=== PATIENT | male | born 1965 | race Caucasian/White ===

== ENCOUNTER 2020-06-08 12:28 | Emergency (ER) | payer OTHER, SELFPAY ==
--- NOTE | 2020-06-08 12:42 | XR_ITS ---
EXAMINATION: XR CHEST CLINICAL INFORMATION: Pain COMPARISON: 12/21/2019 TECHNIQUE: Frontal view of the chest was obtained. FINDINGS: The cardiomediastinal silhouette is within normal limits. The lungs are well expanded. There is no focal consolidation, edema, or effusion. No pneumothorax. No acute osseous abnormality. XR/XR chest 1V IMPRESSION: No evidence of acute cardiopulmonary process.
--- NOTE | 2020-06-08 12:42 | ECG_ITS ---
Test Reason : CP Blood Pressure : / mmHG Vent. Rate : 094 BPM Atrial Rate : 094 BPM P-R Int : 160 ms QRS Dur : 086 ms QT Int : 366 ms P-R-T Axes : 065 025 041 degrees QTc Int : 457 ms Normal sinus rhythm Normal ECG When compared with ECG of 21-DEC-2019 11:57, Vent. rate has increased BY 32 BPM Referred By: Mayra Baer Electronically Signed By:Yunier Griggs
--- NOTE | 2020-06-08 12:43 | ED.PSYCH ---
HPI - Psych General Chief Complaint: Psychiatric Symptoms Stated Complaint: Unknown Time Seen by Provider: 06/08/20 12:43 Source: patient and EMS Mode of arrival: EMS Limitations: altered mental status (dementia) History of Present Illness MD complaint: suicidal ideation Onset (ago): unknown Duration: constant History of same: Yes Relieving factors: none Exacerbating factors: none Associated psychiatric symptoms: suicidal ideation (family reports SI) Associated symptoms: other (EMS noted he c/o chest pain after searched by PD - no knife found) Treatments prior to arrival: none Related Data Home Medications Medication Instructions Recorded Confirmed albuterol sulfate 90 mcg/actuation 2 puff INHALATION .4 TIMES A DAY 04/20/20 04/20/20 aerosol inhaler PRN g aripiprazole 5 mg tablet 5 mg PO DAILY 04/20/20 04/20/20 cholecalciferol (vitamin D3) 25 25 mcg PO DAILY 04/20/20 04/20/20 mcg (1,000 unit) capsule cyanocobalamin (vitamin B-12) 1,000 mcg IM Q4W ml 04/20/20 04/20/20 1,000 mcg/mL injection solution donepezil 10 mg tablet 10 mg PO BEDTIME 04/20/20 04/20/20 ibuprofen 600 mg tablet 600 mg PO TID PRN 04/20/20 04/20/20 lisinopril 5 mg tablet 5 mg PO DAILY 04/20/20 04/20/20 pantoprazole 40 mg tablet,delayed 40 mg PO DAILY 04/20/20 04/20/20 release quetiapine 100 mg tablet 200 mg PO BEDTIME tab 04/20/20 04/20/20 sennosides 8.6 mg tablet 8.6 mg PO .2 TABS AT BEDTIME tab 04/20/20 04/20/20 sertraline 50 mg tablet 50 mg PO DAILY 04/20/20 04/20/20 tamsulosin 0.4 mg capsule 0.4 mg PO DAILY 04/20/20 04/20/20 Allergies Allergy/AdvReac Type Severity Reaction Status Date / Time ciprofloxacin [CIPROFLOXACIN] AdvReac Intermediate DIARRHEA Verified 04/20/20 16:07 Review of Systems Review of Systems: ROS unable to be obtained due to dementia PMFSH Past Medical History Attestation statement: The following information was validated with the patient. Medical History Alzheimer disease Alzheimer's dementia Anxiety Asthma Benign essential hypertension Bipolar depression BPH (benign prostatic hyperplasia) GERD (gastroesophageal reflux disease) High cholesterol Insomnia Lumbar degenerative disc disease Neurocognitive disorder Pure hypercholesterolemia Smoker Surgical History History of discectomy History of removal of cyst History of surgery Family History Family History Father Alzheimers disease Chronic mental illness Mother Hypertension Meningitis Sister Heart disease Hypertension Maternal Grandmother Hypertension Diabetes Social History Social History Smoking Status: Current every day smoker Tobacco Type: Cigarette Cigarettes Per Day: 60 Use of substances other than those prescribed or required for medical reasons: No Advance Directives: No Advance Directives Information Provided: Yes Physical Exam Vital Signs: Vital Signs: Last Vital Signs Temp 98.1 F 06/08/20 13:04 Pulse 67 06/08/20 15:07 Resp 16 06/08/20 15:07 BP 108/61 06/08/20 15:07 Pulse Ox 100 06/08/20 15:07 Body Mass Index 29.0 Appearance: Alert. Oriented X2. No acute distress. Very anxious Eyes: Pupils equal, round and reactive to light. ENT: Pharynx normal. Neck: Normal inspection. Neck supple. CVS: Normal heart rate and rhythm. Pulses normal. Respiratory: No respiratory distress. Breath sounds normal. Abdomen: Soft and nontender. Skin: Skin warm and dry. Normal skin color. Normal skin turgor. Extremities: No lower extremity edema. No calf ttp Neuro: Oriented X 2. No motor deficit. No sensory deficit. CN intact Course Course Course Narrative: initial workup negative, currently resting, EKG nonischemic trop negative will refer to N signed out pending troponin 5pm, N consult MDM - Psych MDM Narrative Medical decision making narrative: 54 yo male with hx of dementia here with reported SI from family once PD invovled c/o chest pain - will need labs, EKG, CXR, troponin x 2, ativan for anxiety per him, he is very hard to get a history from he keeps pointing to his chest and c/o my heart. he denies any shortness of breath, nausea, he does not answer questions in regards to SI/HI. Lab Data Result diagrams: 06/08/20 14:39 06/08/20 14:39 Labs: Lab Results 06/08/20 06/08/20 06/08/20 Range/Units 14:39 14:39 14:39 WBC 9.7 (4.8-10.8) X10*3/uL RBC 4.26 L (4.60-5.80) X10*6/uL Hgb 13.7 L (14.0-18.0) g/dl Hct 41.3 L (42-52) % MCV 96.9 (80-98) fL MCH 32.2 (27.0-33.0) pg MCHC 33.2 (31.0-36.0) g/dl RDW 13.4 (11.0-16.0) % Plt Count 241 (160-400) X10*3/uL MPV 9.3 L (9.4-12.4) fL Immature Gran % (Auto) 0.3 (0.0-0.4) % Neut % (Auto) 78.8 H (45-73) % Lymph % (Auto) 14.2 L (20-40) % [place] % (Auto) 5.9 (2-11) % Eos % (Auto) 0.4 (0-4) % Baso % (Auto) 0.4 (0-2) % Lymph # (Auto) 1.4 (1.2-4.9) X10*3/uL [place] # (Auto) 0.6 (0.1-1.2) X10*3/uL Eos # (Auto) 0.0 (0.0-0.4) X10*3/uL Baso # (Auto) 0.0 (0.0-0.2) X10*3/uL Abs Immat Gran (auto) 0.03 (0.00-0.03) X10*3/uL Absolute Neuts (auto) 7.7 (2.0-8.3) X10*3/uL Absolute Nucleated RBC 0.000 (0.0-0.012) X10*3/uL Nucleated RBC % (auto) 0.0 (0.0-0.2) /100WBC Hold Blue Top SEE NOTE Sodium 141 (135-145) mmol/L Potassium 4.3 (3.3-5.1) mmol/l Chloride 108 (96-108) mmol/L Carbon Dioxide 26 (22-29) mmol/L Anion Gap 11 L (12-20) BUN 15 (9-16) mg/dL Creatinine 0.84 (0.5-1.4) mg/dL Estim Creat Clear Calc 106.4 Estimated GFR > 60 Random Glucose 85 (60-115) mg/dL Calcium 9.0 (8.4-10.2) mg/dL Magnesium (1.6-2.6) mg/dL Total Bilirubin (0.0-1.0) mg/dL Direct Bilirubin (0.0-0.5) mg/dL AST (5-37) U/L ALT (0-40) U/L Alkaline Phosphatase (39-117) U/L Troponin I High Sens (<3.5-35.0) ng/L Total Protein (6.5-8.0) g/dL Albumin (3.5-5.0) g/dL Lipase (8-78) U/L Ethyl Alcohol mg/dL 06/08/20 06/08/20 06/08/20 Range/Units 14:40 14:40 14:40 WBC (4.8-10.8) X10*3/uL RBC (4.60-5.80) X10*6/uL Hgb (14.0-18.0) g/dl Hct (42-52) % MCV (80-98) fL MCH (27.0-33.0) pg MCHC (31.0-36.0) g/dl RDW (11.0-16.0) % Plt Count (160-400) X10*3/uL MPV (9.4-12.4) fL Immature Gran % (Auto) (0.0-0.4) % Neut % (Auto) (45-73) % Lymph % (Auto) (20-40) % [place] % (Auto) (2-11) % Eos % (Auto) (0-4) % Baso % (Auto) (0-2) % Lymph # (Auto) (1.2-4.9) X10*3/uL [place] # (Auto) (0.1-1.2) X10*3/uL Eos # (Auto) (0.0-0.4) X10*3/uL Baso # (Auto) (0.0-0.2) X10*3/uL Abs Immat Gran (auto) (0.00-0.03) X10*3/uL Absolute Neuts (auto) (2.0-8.3) X10*3/uL Absolute Nucleated RBC (0.0-0.012) X10*3/uL Nucleated RBC % (auto) (0.0-0.2) /100WBC Hold Blue Top Sodium (135-145) mmol/L Potassium (3.3-5.1) mmol/l Chloride (96-108) mmol/L Carbon Dioxide (22-29) mmol/L Anion Gap (12-20) BUN (9-16) mg/dL Creatinine (0.5-1.4) mg/dL Estim Creat Clear Calc Estimated GFR Random Glucose (60-115) mg/dL Calcium (8.4-10.2) mg/dL Magnesium 2.2 (1.6-2.6) mg/dL Total Bilirubin 0.6 (0.0-1.0) mg/dL Direct Bilirubin 0.3 (0.0-0.5) mg/dL AST 22 (5-37) U/L ALT 18 (0-40) U/L Alkaline Phosphatase 72 (39-117) U/L Troponin I High Sens < 3.5 (<3.5-35.0) ng/L Total Protein 6.7 (6.5-8.0) g/dL Albumin 4.4 (3.5-5.0) g/dL Lipase 37 (8-78) U/L Ethyl Alcohol < 10 mg/dL ECG Data Attestation: I personally reviewed and interpreted this ECG as follows: ECG interpretation date: 06/08/20 ECG interpretation time: 12:49 Interpretation: Rate: 94 Rhythm: NSR [place]: normal Normal P waves. Normal DAT. Normal QRS complex. ST T wave : normal , no PHOEBE qTC: normal prior studies: no acute ischemia The study has been interpreted contemporaneously by me. . Discharge Plan Discharge Clinical Impression: Alzheimer's dementia Qualifiers: Alzheimer's disease onset: early-onset Dementia behavioral disturbance: with behavioral disturbance Qualified Code(s): G30.0 - Alzheimer's disease with early onset Prescriptions: No Action donepezil 10 mg tablet 10 mg PO BEDTIME RF: 0 aripiprazole 5 mg tablet 5 mg PO DAILY RF: 0 cholecalciferol (vitamin D3) 25 mcg (1,000 unit) capsule 25 mcg PO DAILY RF: 0 sertraline 50 mg tablet 50 mg PO DAILY RF: 0 pantoprazole 40 mg tablet,delayed release (DR/EC) 40 mg PO DAILY RF: 0 ibuprofen 600 mg tablet 600 mg PO TID PRN (Reason: pain) RF: 0 lisinopril 5 mg tablet 5 mg PO DAILY RF: 0 albuterol sulfate [ProAir HFA] 90 mcg/actuation HFA aerosol inhaler 2 puff inhalation .4 TIMES A DAY PRNRF: 0 sennosides [Senna Lax] 8.6 mg tablet 8.6 mg PO .2 TABS AT BEDTIME RF: 0 tamsulosin 0.4 mg capsule 0.4 mg PO DAILY RF: 0 cyanocobalamin (vitamin B-12) 1,000 mcg/mL solution 1,000 mcg IM Q4W RF: 0 quetiapine 100 mg tablet 200 mg PO BEDTIME RF: 0
[2020-06-08 13:04] VITALS: BP 124/69; BP 138/90; PULSE 101; RESP 18; TEMP 36.7; O2SAT 98; BMI 29.0
[2020-06-08] MEDS: LORazepam 1 MG TABLET PO (13:25)
[2020-06-08 14:48] LABS: MANUAL DIFF FLAG NO
[2020-06-08 14:49] LABS: Basophils Percent Auto 0.4 % (0-2); Eosinophils Percent Auto 0.4 % (0-4); Hematocrit 41.3 % (42-52); Hemoglobin 13.7 g/dl (14.0-18.0); Imm Gran Abs Auto 0.03 X10*3/uL (0.00-0.03); Imm Gran Pct Auto 0.3 % (0.0-0.4); Lymphocytes Absolute Auto 1.4 X10*3/uL (1.2-4.9); Lymphocytes Percent Auto 14.2 % (20-40); Mean Corpuscular HGB Conc 33.2 g/dl (31.0-36.0); Mean Corpuscular Hemoglobin 32.2 pg (27.0-33.0); Mean Corpuscular Volume 96.9 fL (80-98); Mean Platelet Volume 9.3 fL (9.4-12.4); Monocytes Absolute Auto 0.6 X10*3/uL (0.1-1.2); Monocytes Percent Auto 5.9 % (2-11); Neutrophils Absolute Auto 7.7 X10*3/uL (2.0-8.3); Neutrophils Percent Auto 78.8 % (45-73); Platelet Count 241 X10*3/uL (160-400); Red Blood Count 4.26 X10*6/uL (4.60-5.80); Red Cell Distribution Width 13.4 % (11.0-16.0); White Blood Count 9.7 X10*3/uL (4.8-10.8)
[2020-06-08 15:07] VITALS: BP 108/61; PULSE 67; RESP 16; O2SAT 100
[2020-06-08 15:12] LABS: Anion Gap 11 (12-20); Blood Urea Nitrogen 15 mg/dL (9-16); Carbon Dioxide 26 mmol/L (22-29); Chloride 108 mmol/L (96-108); Creatinine Clr Calc Pharmacy 106.4; Estimated Glomerular Filt Rate > 60; Glucose Random 85 mg/dL (60-115); Potassium 4.3 mmol/l (3.3-5.1); Sodium 141 mmol/L (135-145)
[2020-06-08 15:13] LABS: Ethanol < 10 mg/dL
[2020-06-08 15:15] LABS: Alanine Aminotransferase 18 U/L (0-40); Albumin Level 4.4 g/dL (3.5-5.0); Alkaline Phosphatase 72 U/L (39-117); Aspartate Amino Transferase 22 U/L (5-37); Bilirubin Direct 0.3 mg/dL (0.0-0.5); Bilirubin Total 0.6 mg/dL (0.0-1.0); Lipase 37 U/L (8-78); Magnesium 2.2 mg/dL (1.6-2.6); Total Protein 6.7 g/dL (6.5-8.0)
[2020-06-08 15:28] LABS: Troponin-I High Sensitivity < 3.5 ng/L (<3.5-35.0)
--- NOTE | 2020-06-08 16:00 | PC.NURSE ---
Faxed to [facility]
[2020-06-08] MEDS: LORazepam 1 MG TABLET 2 MG PO (16:30)
--- NOTE | 2020-06-08 16:31 | PC.NURSE ---
Pt had another tearful outburst, attempting to leave ED needing verbal deescalation from staff and , escorted back to room without incident. Acceptable to Ativan 2mg PO. awaiting [facility]
[2020-06-08 16:33] VITALS: BP 106/62; PULSE 64; RESP 18
[2020-06-08 18:00] VITALS: BP 99/52; PULSE 71; RESP 16; O2SAT 98
--- NOTE | 2020-06-08 18:35 | MHC.CARE ---
CARE team contacted [facility] re: referral faxed for pt to be evaluated by a orthopedic shoe fitter. [facility] supervisor [employer] Alex reported that there hadn't been any faxes referred, however when informed that the fax number used was [phone] he reported that they transitioned that number to e-fax and only supervisors are able to check that. Receipt of referral was confirmed at that time, with current ETA of a clinician for third shift due to acuity of community taking priority. This rfp writer planned for a follow up with [facility] at 20:00 to assess clinician availability. If clinician is not readily available, CARE team will complete evaluation and [facility] will contact insurance company to notify them.
[2020-06-08 18:59] LABS: Troponin-I High Sensitivity 5.9 ng/L (<3.5-35.0)
--- NOTE | 2020-06-08 19:09 | PC.NURSE ---
Report taken from lalita Diez RN resuming care. Pt awake and alert, primarily Norwegian speaking only, resting in bed, denies pain/discomfort, calm/cooperative at this time. Pt provided with a urinal to provide ordered urine sample. Continue to monitor.
--- NOTE | 2020-06-08 19:29 | PC.NURSE ---
Report given to Jozef in the pod.
--- NOTE | 2020-06-08 19:37 | PC.NURSE ---
Patient just got transferred from main ED, per report patient is waiting to be seen by N, patient ambulatory, poor insight, unable to confirm his medication, no distress observed/reported, will continue to monitor.
--- NOTE | 2020-06-08 20:05 | PC.NURSE ---
[facility] called/spoke with Jesse/confirmed receipt of referral, no ETA, will continue to monitor.
--- NOTE | 2020-06-08 21:26 | PC.NURSE ---
Patient went to use bathroom, offered urine cup for urine specimen, patient used bathroom, came out with empty cup, unable to reason out why not providning urine sample, will continue to monitor.
[2020-06-09] VITALS (10 sets, daily range): BP systolic 121–160; BP diastolic 63–88; PULSE 56–80; RESP 14–22; TEMP 36.2–36.9; O2SAT 99
[2020-06-09 01:12] LABS: Amphetamine Screen Urine Not Detected (Not Detect); Barbiturates, Urine Not Detected (Not Detect); Benzodiazepines Screen Urine Not Detected (Not Detect); Cannabinoid Screen Urine Not Detected (Not Detect); Cocaine Screen Urine Not Detected (Not Detect); Opiate Screen Urine Not Detected (Not Detect); Phencyclidine Screen Urine Not Detected (Not Detect)
[2020-06-09] MEDS: Donepezil HCl 10 MG TABLET PO ×2 (01:17→21:41)
[2020-06-09] MEDS: QUEtiapine Fumarate 200 MG TABLET PO ×2 (01:17→01:18)
[2020-06-09] MEDS: Ibuprofen 600 MG TABLET PO (01:17)
[2020-06-09 01:28] LABS: COVID-19 Test Negative (Negative)
--- NOTE | 2020-06-09 02:10 | PC.NURSE ---
Patient in hallway, wandering, impaired memory, forgets his room often, needs to remind, behavior quiet, affect flat, poor insight . N assessed the patient, patient is on section 12, in-patient bed search. Compliant with COVID test, result negative for COVID. will continue to monitor.
[2020-06-09] MEDS: OLANZapine 5 MG TABLET PO ×2 (02:45→10:09)
--- NOTE | 2020-06-09 02:54 | PC.NURSE ---
Patient was pacing, trying to open other patient's room, provider ordered/olanzapine 5 mg PO/administered as ordered/patient compliant/pending effect, will continue to monitor.
--- NOTE | 2020-06-09 07:14 | PC.NURSE ---
Report received from LUDWIG Haskins. Pt awake, sitting out in common area, affect even, no concerns reported.
--- NOTE | 2020-06-09 09:43 | PC.NURSE ---
Fur Remodeler in. Pt appears disoriented, occasionally answering questions appropriately but then drifting and becoming disoriented. Pt oriented to person, but not to year. Pt remembers that he 'went crazy' yesterday, and is able to understand that he is here today for that reason. pt rep[orts chest pain x3 months, states it is worse when lying down. C Gonzales aware, EKG in process at this time.
--- NOTE | 2020-06-09 09:54 | ECG_ITS ---
Test Reason : CHEST PAIN Blood Pressure : / mmHG Vent. Rate : 059 BPM Atrial Rate : 059 BPM P-R Int : 120 ms QRS Dur : 096 ms QT Int : 432 ms P-R-T Axes : 057 048 059 degrees QTc Int : 427 ms Sinus bradycardia Otherwise normal ECG When compared with ECG of 08-JUN-2020 12:42, Vent. rate has decreased BY 35 BPM Referred By: Ashley Gonzales Electronically Signed By:Yunier Griggs
--- NOTE | 2020-06-09 10:11 | PC.NURSE ---
Pt became agitated, punched a wall, attempting to leave. C jordan aware, pt medicated as ordered. Pt currently sitting in common area drinking beverage.
--- NOTE | 2020-06-09 11:08 | PC.NURSE ---
Pt out in common area, affect brighter, attempting to engage in conversation w/ staff at times. no further attempts to leave.
[2020-06-09] MEDS: Haloperidol Lactate 5 MG/ML VIAL 2.5 MG IM (11:40)
[2020-06-09] MEDS: LORazepam 2 MG/ML VIAL IM (11:41)
--- NOTE | 2020-06-09 11:50 | PC.NURSE ---
Pt attempting to engage staff in conversation. Track Announcer called, pt did not speak to irrigation supervisor. Shortly after irrigation supervisor left pt became agitated, tearful, attempting to enter pt's rooms, unable to remove him from room. Security called, Malu Gonzales called, pt medicated as ordered. Pt currently resting in room, offered food and fluids, declined.
--- NOTE | 2020-06-09 12:26 | PC.NURSE ---
Pt continues to be restless, pacing, requiring redirection for entering into people's rooms.
--- NOTE | 2020-06-09 17:03 | PM.EVENT ---
Event Note Date of Service: 06/09/20 Event Note: Chart reviewed, discussed case with RN Patient presenting with agitation, intrusive (entering patient's rooms), banging head against wall. Requiring IM medication with little effect. Pending inpatient admission. Plan: -Unclear what current home medications are and if patient is actually taking anything consistently, based on that the following orders placed. -Seroquel 50mg QHS -Trazodone 50mg QHS -Trazodone 25mg BID PRN for agitaion/restlessness -Aricept 10mg QHS -Plan to see in the timber poisoner. -Consider checking for UTI
--- NOTE | 2020-06-09 17:17 | PC.NURSE ---
Attempting to call [facility] for further information re: pt medications and compliance. No response at this time. Spoke w/ M Jesus re: pt behaviors and responses to medications.
--- NOTE | 2020-06-09 17:44 | PC.NURSE ---
Awaiting return call from [employer]. Pt currently pacing slowly, able to follow some direction.
--- NOTE | 2020-06-09 18:08 | PC.NURSE ---
Spoke w/ Lala at [facility]. [facility] prefills medication 3x per week, but they are not able to monitor compliance. Per Lala, RN notes do indicate concerns w/ etoh use. Reviewed med list w/ Lala to confirm.
--- NOTE | 2020-06-09 20:16 | PC.NURSE ---
[facility] called/notified that patient has been accepted to [facility]/asked to faxed updated ED report/faxed/spoke with Jesse/confirmed receipt of medical report.
[2020-06-09] MEDS: QUEtiapine Fumarate 50 MG TABLET PO (21:41)
[2020-06-09 22:34] LABS: Folate 12.9 ng/mL (> or = 4.0); Vitamin B12 600 pg/mL (200-900)
[2020-06-09] MEDS: traZODone HCL 25 MG HALFTAB 50 MG PO (22:59)
[2020-06-09] MEDS: traZODone HCL 25 MG HALFTAB PO (23:00)
[2020-06-10 00:18] VITALS: BP 128/83; PULSE 63; RESP 17; TEMP 36.5; O2SAT 100
== END 2020-06-10 01:06 ==
PROVIDERS: Nurse Practitioner Family; Physician Assistant; Emergency Provider Emergency Medicine; PCP Internal Medicine
DX: G30.0 Alzheimer's disease with early onset (principal); F02.81 Dementia in other diseases classified elsewhere, unspecified severity, with behavioral disturbance; F32.9 Major depressive disorder, single episode, unspecified; F41.9 Anxiety disorder, unspecified; I10 Essential (primary) hypertension; Z20.828 Contact with and (suspected) exposure to other viral communicable diseases; F17.210 Nicotine dependence, cigarettes, uncomplicated; Z79.899 Other long term (current) drug therapy
CPT/HCPCS: 36415; 71045; 80048; 80076; 80307; 80320; 82607; 82746; 83690; 83735; 84443; 84484; 85025; 87635; 93005; 96372; 99285; J2060

== ENCOUNTER 2020-06-20 12:53 | Inpatient (IN) | payer OTHER, SELFPAY ==
--- NOTE | 2020-06-20 13:08 | ED_ITS ---
HPI - Psych General Chief Complaint: Psychiatric Symptoms <Jackson Huber NP - Last Filed: 06/20/20 20:50> Stated Complaint: SI <Jackson Huber NP - Last Filed: 06/20/20 20:50> Time Seen by Provider: 06/20/20 13:07 <Jackson Huber NP - Last Filed: 06/20/20 20:50> Mode of arrival: EMS <Jackson Huber NP - Last Filed: 06/20/20 20:50> Limitations: no limitations <Jackson Huber NP - Last Filed: 06/20/20 20:50> History of Present Illness HPI Narrative: 54-year-old primarily Kiswahili-speaking male with history of Alzheimer's dementia with behavior disturbances, anxiety disorder, asthma, hypertension, bipolar disorder, gastroesophageal reflux disease, insomnia, degenerative disc disease, hypercholesteremia with surgical history of discectomy who presents via EMS from home with complaint of suicidal/homicidal ideation. Apparently he was at home upset with a knife threatening to harm himself by cutting his wrist. apparently called EMS. Patient just had a short stay at [facility] for suicidal ideation was discharged apparently 4 days ago. He offers no medical complaints. <Jackson Huber NP - Last Filed: 06/20/20 20:50> MD complaint: suicidal ideation <Jackson Huber NP - Last Filed: 06/20/20 20:50> Relieving factors: none <Jackson Huber NP - Last Filed: 06/20/20 20:50> Exacerbating factors: other (Question argument with ) <Jackson Huber NP - Last Filed: 06/20/20 20:50> Associated psychiatric symptoms: suicidal ideation <Jackson Huber NP - Last Filed: 06/20/20 20:50> Associated symptoms: denies other symptoms <Jackson Huber NP - Last Filed: 06/20/20 20:50> Treatments prior to arrival: none <Jackson Huber NP - Last Filed: 06/20/20 20:50> If self harm: admits thoughts of self harm <Jackson Huber NP - Last Filed: 06/20/20 20:50> Related Data Home Medications: Home Medications Medication Instructions Recorded Confirmed albuterol sulfate 90 mcg/actuation 2 puff INHALATION .4 TIMES A DAY 04/20/20 06/20/20 aerosol inhaler PRN g atorvastatin 40 mg PO BEDTIME 06/20/20 06/20/20 divalproex 250 mg PO BID 06/20/20 06/20/20 donepezil 5 mg PO DAILY 06/20/20 06/20/20 escitalopram oxalate 5 mg PO DAILY 06/20/20 06/20/20 hydroxyzine pamoate 50 mg PO Q4H PRN 06/20/20 06/20/20 lisinopril 5 mg PO DAILY 06/20/20 06/20/20 lorazepam 1 mg PO Q6H PRN 06/20/20 06/20/20 melatonin 3 mg PO BEDTIME 06/20/20 06/20/20 mirtazapine 7.5 mg PO BEDTIME 06/20/20 06/20/20 pantoprazole 40 mg PO DAILY 06/20/20 06/20/20 risperidone [Risperdal] 1 mg PO BID 06/20/20 06/20/20 risperidone [Risperdal] 1 mg PO Q6H PRN 06/20/20 06/20/20 <Jackson Huber NP - Last Filed: 06/20/20 20:50> Allergies/Adverse Reactions: Allergies Allergy/AdvReac Type Severity Reaction Status Date / Time ciprofloxacin [CIPROFLOXACIN] AdvReac Intermediate DIARRHEA Verified 04/20/20 16:07 <Jackson Huber NP - Last Filed: 06/20/20 20:50> Review of Systems Review of Systems: Constitutional: No Weight loss, No Fever, No Chills, No Night Sweats, No Fatigue, No Malaise ENT/Mouth: No Hearing loss, No Ear Pain, No Nasal Congestion, No Sinus Pain, No Hoarseness, No sore throat, No Rhinorrhea, No Swallowing Difficulty Eyes: No Eye Pain, No Swelling, No Redness, No Foreign Body, No Discharge, No Vision Changes Cardiovascular: No Chest Pain, No SOB, No Dyspnea on Exertion, No Orthopnea, No Edema, No Palpitations Respiratory: No Cough, No Sputum, No Wheezing, No Dyspnea Gastrointestinal: No Nausea, No Vomiting, No Diarrhea, No Constipation, No abdominal Pain, No Hematochezia, No Melena Genitourinary: no irregular bleeding, No Dysuria, No Urinary Frequency, No Hematuria, No Urinary Incontinence, No Urgency, No Flank Pain, No Urinary Flow Changes Musculoskeletal: No joint pain, No Myalgias, No Joint Swelling Skin: No Skin Lesions, No rash Neuro: No Weakness, No Numbness, No Paresthesias, No Loss of Consciousness, No Dizziness, No Headache Psych: As noted in HPI Heme/Lymph: No Bruising, No Bleeding,No Lymphadenopathy Endocrine: No Polyuria, No Polydipsia, No Temperature Intolerance <Jackson Huber NP - Last Filed: 06/20/20 20:50> Yes all other systems are reviewed and are negative <Jackson Huber NP - Last Filed: 06/20/20 20:50> PMFSH Past Medical History Medical History: Medical History Alzheimer disease Alzheimer's dementia Anxiety Asthma Benign essential hypertension Bipolar depression BPH (benign prostatic hyperplasia) GERD (gastroesophageal reflux disease) High cholesterol Insomnia Lumbar degenerative disc disease Neurocognitive disorder Pure hypercholesterolemia Smoker <Jackson Huber NP - Last Filed: 06/20/20 20:50> Surgical History: Surgical History History of discectomy History of removal of cyst History of surgery <Jackson Huber NP - Last Filed: 06/20/20 20:50> Family History Family History: Family History Father Alzheimers disease Chronic mental illness Mother Hypertension Meningitis Sister Heart disease Hypertension Maternal Grandmother Hypertension Diabetes <Jackson Huber NP - Last Filed: 06/20/20 20:50> Social History Social History: Social History Alcohol intake: unknown Smoking Status: Current every day smoker Tobacco Type: Cigarette Cigarettes Per Day: 60 Smoked in Last 30 Days: Yes Use of substances other than those prescribed or required for medical reasons: Unknown Advance Directives: No Advance Directives Information Provided: No <Jackson Huber NP - Last Filed: 06/20/20 20:50> Physical Exam Vital Signs: Vital Signs: Last Vital Signs Temp 97.8 F 06/21/20 06:00 Pulse 74 06/21/20 06:00 Resp 18 06/21/20 06:00 BP 147/89 H 06/21/20 06:00 Pulse Ox 99 06/21/20 06:00 Body Mass Index 27.4 Reviewed <Jackson Huber NP - Last Filed: 06/20/20 20:50> Vital Signs: Last Vital Signs Temp 97.8 F 06/21/20 06:00 Pulse 74 06/21/20 06:00 Resp 18 06/21/20 06:00 BP 147/89 H 06/21/20 06:00 Pulse Ox 99 06/21/20 06:00 Body Mass Index 27.4 <Kallie Man MD - Last Filed: 06/21/20 07:43> Const: Other: Pleasant and soft-spoken. Expressed to me his frustration with a recent argument and his thoughts of wanting to cut his wrist. <Jackson Huber NP - Last Filed: 06/20/20 20:50> General: cooperative; No acute distress or intoxicated appearing <Jackson Huber NP - Last Filed: 06/20/20 20:50> Nutritional Appearance: average body habitus <Jackson Huber NP - Last Filed: 06/20/20 20:50> Orientation/consciousness: patient oriented x3 <Jackson Huber NP - Last Filed: 06/20/20 20:50> HENMT: Head: Yes normal to inspection <Jackson Huber NP - Last Filed: 06/20/20 20:50> Ears: hearing grossly normal bilaterally <Jacksondave Huber NP - Last Filed: 06/20/20 20:50> Eyes: General: appearance normal, both eyes and all related structures <Jackson Huber NP - Last Filed: 06/20/20 20:50> Visual Martinez: normal visual martinez by confrontation <Jackson Huber NP - Last Filed: 06/20/20 20:50> Neck: Neck: Yes normal visual inspection and No tender <Jackson Huber NP - Last Filed: 06/20/20 20:50> Thyroid: Thyroid normal <Jacksondave Huber NP - Last Filed: 06/20/20 20:50> Chest: Chest palpation & inspection: normal inspection of the chest <Jackson Huber NP - Last Filed: 06/20/20 20:50> Resp: Effort & Inspection: normal respiratory effort <[facility] ANN Huber - Last Filed: 06/20/20 20:50> Cardio: Jugular venous distension: no JVD <[facility] ANN Huber - Last Filed: 06/20/20 20:50> Rhythm: regular rhythm <[facility] PATHOLOGY TECHNOLOGIST - Last Filed: 06/20/20 20:50> Heart sounds: S1 normal heart sound present and S2 normal heart sound present <[facility] ANN Huber - Last Filed: 06/20/20 20:50> GI: Inspection: Yes normal to inspection <[facility] PATHOLOGY TECHNOLOGIST - Last Filed: 06/20/20 20:50> Percussion: Yes normal to percussion <[facility] PATHOLOGY TECHNOLOGIST - Last Filed: 06/20/20 20:50> Auscultation: normal bowel sounds <[facility] PATHOLOGY TECHNOLOGIST - Last Filed: 06/20/20 20:50> : General: Yes no CVA tenderness <[facility] ANN Huber - Last Filed: 06/20/20 20:50> Back/Spine/Pelvis: Back: no CVA tenderness <[facility] PATHOLOGY TECHNOLOGIST - Last Filed: 06/20/20 20:50> Skin: General skin exam: no rashes or lesions noted <[facility] ANN Huber - Last Filed: 06/20/20 20:50> Neuro: General: patient oriented x3 <Jacksondave Huber NP - Last Filed: 06/20/20 20:50> Extrem: General: Yes normal to inspection <[facility] ANN Huber - Last Filed: 06/20/20 20:50> Course Course Course Narrative: 1305 In review 54-year-old male with psychiatric disorder and well documented history of Alzheimer's dementia with behavior disturbance presenting with suicidal ideation discharge from [facility] few days ago. Facility will fax over records. Patient is calm and cooperative offers no medical complaints. Will check medical screening labs and obtain psychiatric evaluation. <Jackson Huber NP - Last Filed: 06/20/20 20:50> Reevaluation(s) Reevaluation #1: 1620 Evaluate by the crisis team recommendation for inpatient level care It is noted that the [facility] addition to this is also interested and getting the patient to go to long-term facility. After acute hospitalization status stabilization she would like to talk to case management for potential long-term placement. Section 12 completed and signed by me. <Jackson Huber NP - Last Filed: 06/20/20 20:50> Reevaluation #2: 2100 Sign out to night team pending placement <Jackson Huber NP - Last Filed: 06/20/20 20:50> MDM - Psych Medical Records Attestation: I reviewed the patient's medical records. <Jackson Huber NP - Last Filed: 20:50> Medical records narrative: Medical records received from [facility] and reviewed, in chart. <Jackson Huber NP - Last Filed: 06/20/20 20:50> Lab Data Attestation: I reviewed the patient's lab results. <Jackson Huber NP - Last Filed: 06/20/20 20:50> Result diagrams: : 06/20/20 13:36 06/20/20 13:36 <Jackson Huber NP - Last Filed: 06/20/20 20:50> Labs: Lab Results 06/20/20 06/20/20 06/20/20 Range/Units 13:05 13:36 13:36 WBC 7.2 (4.8-10.8) X10*3/uL RBC 4.02 L (4.60-5.80) X10*6/uL Hgb 12.9 L (14.0-18.0) g/dl Hct 39.4 L (42-52) % MCV 98.0 (80-98) fL MCH 32.1 (27.0-33.0) pg MCHC 32.7 (31.0-36.0) g/dl RDW 12.9 (11.0-16.0) % Plt Count 264 (160-400) X10*3/uL MPV 9.5 (9.4-12.4) fL Immature Gran % (Auto) 0.3 (0.0-0.4) % Neut % (Auto) 64.7 (45-73) % Lymph % (Auto) 25.6 (20-40) % [place] % (Auto) 7.0 (2-11) % Eos % (Auto) 1.7 (0-4) % Baso % (Auto) 0.7 (0-2) % Lymph # (Auto) 1.8 (1.2-4.9) X10*3/uL [place] # (Auto) 0.5 (0.1-1.2) X10*3/uL Eos # (Auto) 0.1 (0.0-0.4) X10*3/uL Baso # (Auto) 0.1 (0.0-0.2) X10*3/uL Abs Immat Gran (auto) 0.02 (0.00-0.03) X10*3/uL Absolute Neuts (auto) 4.7 (2.0-8.3) X10*3/uL Absolute Nucleated RBC 0.000 (0.0-0.012) X10*3/uL Nucleated RBC % (auto) 0.0 (0.0-0.2) /100WBC Sodium 144 (135-145) mmol/L Potassium 4.5 (3.3-5.1) mmol/l Chloride 108 (96-108) mmol/L Carbon Dioxide 28 (22-29) mmol/L Anion Gap 13 (12-20) BUN 19 H (9-16) mg/dL Creatinine 0.88 (0.5-1.4) mg/dL Estim Creat Clear Calc 92.7 Estimated GFR > 60 Random Glucose 120 H D (60-115) mg/dL Calcium 9.2 (8.4-10.2) mg/dL Total Bilirubin 0.3 (0.0-1.0) mg/dL AST 19 (5-37) U/L ALT 15 (0-40) U/L Alkaline Phosphatase 61 (39-117) U/L Total Protein 6.3 L (6.5-8.0) g/dL Albumin 4.0 (3.5-5.0) g/dL Urine Color Urine Appearance Urine pH (5.0-8.0) Ur Specific [place] (1.005-1.025) Urine Protein (NEG-TRACE) MG/DL Urine Glucose (UA) (NEG) MG/DL Urine Ketones (NEG) MG/DL Urine Blood (NEG) Urine Nitrite (NEG) Ur Leukocyte Esterase (NEG) Urine RBC (0) /HPF Urine WBC (0-4) /HPF Ur Squamous Epith Cells /LPF Urine Bacteria /LPF Urine Mucus /LPF Urine Opiates Screen Not Detected (Not Detect) Ur Barbiturates Screen Not Detected (Not Detect) Valproic Acid (50.0-100.0) mcg/mL Ur Phencyclidine Scrn Not Detected (Not Detect) Ur Amphetamines Screen Not Detected (Not Detect) U Benzodiazepines Scrn Not Detected (Not Detect) Urine Cocaine Screen Not Detected (Not Detect) U Marijuana (THC) Screen Not Detected (Not Detect) Ethyl Alcohol mg/dL 06/20/20 06/20/20 06/21/20 Range/Units 13:36 13:36 04:32 WBC (4.8-10.8) X10*3/uL RBC (4.60-5.80) X10*6/uL Hgb (14.0-18.0) g/dl Hct (42-52) % MCV (80-98) fL MCH (27.0-33.0) pg MCHC (31.0-36.0) g/dl RDW (11.0-16.0) % Plt Count (160-400) X10*3/uL MPV (9.4-12.4) fL Immature Gran % (Auto) (0.0-0.4) % Neut % (Auto) (45-73) % Lymph % (Auto) (20-40) % [place] % (Auto) (2-11) % Eos % (Auto) (0-4) % Baso % (Auto) (0-2) % Lymph # (Auto) (1.2-4.9) X10*3/uL [place] # (Auto) (0.1-1.2) X10*3/uL Eos # (Auto) (0.0-0.4) X10*3/uL Baso # (Auto) (0.0-0.2) X10*3/uL Abs Immat Gran (auto) (0.00-0.03) X10*3/uL Absolute Neuts (auto) (2.0-8.3) X10*3/uL Absolute Nucleated RBC (0.0-0.012) X10*3/uL Nucleated RBC % (auto) (0.0-0.2) /100WBC Sodium (135-145) mmol/L Potassium (3.3-5.1) mmol/l Chloride (96-108) mmol/L Carbon Dioxide (22-29) mmol/L Anion Gap (12-20) BUN (9-16) mg/dL Creatinine (0.5-1.4) mg/dL Estim Creat Clear Calc Estimated GFR Random Glucose (60-115) mg/dL Calcium (8.4-10.2) mg/dL Total Bilirubin (0.0-1.0) mg/dL AST (5-37) U/L ALT (0-40) U/L Alkaline Phosphatase (39-117) U/L Total Protein (6.5-8.0) g/dL Albumin (3.5-5.0) g/dL Urine Color YELLOW Urine Appearance CLOUDY Urine pH 6.5 (5.0-8.0) Ur Specific [place] 1.025 (1.005-1.025) Urine Protein NEG (NEG-TRACE) MG/DL Urine Glucose (UA) NEG (NEG) MG/DL Urine Ketones NEG (NEG) MG/DL Urine Blood TRACE (NEG) Urine Nitrite NEG (NEG) Ur Leukocyte Esterase 1+ H (NEG) Urine RBC 1-4 (0) /HPF Urine WBC 10-14 H (0-4) /HPF Ur Squamous Epith Cells 1+ /LPF Urine Bacteria 1+ /LPF Urine Mucus 1+ /LPF Urine Opiates Screen (Not Detect) Ur Barbiturates Screen (Not Detect) Valproic Acid 40.7 L (50.0-100.0) mcg/mL Ur Phencyclidine Scrn (Not Detect) Ur Amphetamines Screen (Not Detect) U Benzodiazepines Scrn (Not Detect) Urine Cocaine Screen (Not Detect) U Marijuana (THC) Screen (Not Detect) Ethyl Alcohol < 10 mg/dL <Jackson Huber NP - Last Filed: 06/20/20 20:50> Lab Results 06/20/20 06/20/20 06/20/20 Range/Units 13:05 13:36 13:36 WBC 7.2 (4.8-10.8) X10*3/uL RBC 4.02 L (4.60-5.80) X10*6/uL Hgb 12.9 L (14.0-18.0) g/dl Hct 39.4 L (42-52) % MCV 98.0 (80-98) fL MCH 32.1 (27.0-33.0) pg MCHC 32.7 (31.0-36.0) g/dl RDW 12.9 (11.0-16.0) % Plt Count 264 (160-400) X10*3/uL MPV 9.5 (9.4-12.4) fL Immature Gran % (Auto) 0.3 (0.0-0.4) % Neut % (Auto) 64.7 (45-73) % Lymph % (Auto) 25.6 (20-40) % [place] % (Auto) 7.0 (2-11) % Eos % (Auto) 1.7 (0-4) % Baso % (Auto) 0.7 (0-2) % Lymph # (Auto) 1.8 (1.2-4.9) X10*3/uL [place] # (Auto) 0.5 (0.1-1.2) X10*3/uL Eos # (Auto) 0.1 (0.0-0.4) X10*3/uL Baso # (Auto) 0.1 (0.0-0.2) X10*3/uL Abs Immat Gran (auto) 0.02 (0.00-0.03) X10*3/uL Absolute Neuts (auto) 4.7 (2.0-8.3) X10*3/uL Absolute Nucleated RBC 0.000 (0.0-0.012) X10*3/uL Nucleated RBC % (auto) 0.0 (0.0-0.2) /100WBC Sodium 144 (135-145) mmol/L Potassium 4.5 (3.3-5.1) mmol/l Chloride 108 (96-108) mmol/L Carbon Dioxide 28 (22-29) mmol/L Anion Gap 13 (12-20) BUN 19 H (9-16) mg/dL Creatinine 0.88 (0.5-1.4) mg/dL Estim Creat Clear Calc 92.7 Estimated GFR > 60 Random Glucose 120 H D (60-115) mg/dL Calcium 9.2 (8.4-10.2) mg/dL Total Bilirubin 0.3 (0.0-1.0) mg/dL AST 19 (5-37) U/L ALT 15 (0-40) U/L Alkaline Phosphatase 61 (39-117) U/L Total Protein 6.3 L (6.5-8.0) g/dL Albumin 4.0 (3.5-5.0) g/dL Urine Color Urine Appearance Urine pH (5.0-8.0) Ur Specific [place] (1.005-1.025) Urine Protein (NEG-TRACE) MG/DL Urine Glucose (UA) (NEG) MG/DL Urine Ketones (NEG) MG/DL Urine Blood (NEG) Urine Nitrite (NEG) Ur Leukocyte Esterase (NEG) Urine RBC (0) /HPF Urine WBC (0-4) /HPF Ur Squamous Epith Cells /LPF Urine Bacteria /LPF Urine Mucus /LPF Urine Opiates Screen Not Detected (Not Detect) Ur Barbiturates Screen Not Detected (Not Detect) Valproic Acid (50.0-100.0) mcg/mL Ur Phencyclidine Scrn Not Detected (Not Detect) Ur Amphetamines Screen Not Detected (Not Detect) U Benzodiazepines Scrn Not Detected (Not Detect) Urine Cocaine Screen Not Detected (Not Detect) U Marijuana (THC) Screen Not Detected (Not Detect) Ethyl Alcohol mg/dL 06/20/20 06/20/20 06/21/20 Range/Units 13:36 13:36 04:32 WBC (4.8-10.8) X10*3/uL RBC (4.60-5.80) X10*6/uL Hgb (14.0-18.0) g/dl Hct (42-52) % MCV (80-98) fL MCH (27.0-33.0) pg MCHC (31.0-36.0) g/dl RDW (11.0-16.0) % Plt Count (160-400) X10*3/uL MPV (9.4-12.4) fL Immature Gran % (Auto) (0.0-0.4) % Neut % (Auto) (45-73) % Lymph % (Auto) (20-40) % [place] % (Auto) (2-11) % Eos % (Auto) (0-4) % Baso % (Auto) (0-2) % Lymph # (Auto) (1.2-4.9) X10*3/uL [place] # (Auto) (0.1-1.2) X10*3/uL Eos # (Auto) (0.0-0.4) X10*3/uL Baso # (Auto) (0.0-0.2) X10*3/uL Abs Immat Gran (auto) (0.00-0.03) X10*3/uL Absolute Neuts (auto) (2.0-8.3) X10*3/uL Absolute Nucleated RBC (0.0-0.012) X10*3/uL Nucleated RBC % (auto) (0.0-0.2) /100WBC Sodium (135-145) mmol/L Potassium (3.3-5.1) mmol/l Chloride (96-108) mmol/L Carbon Dioxide (22-29) mmol/L Anion Gap (12-20) BUN (9-16) mg/dL Creatinine (0.5-1.4) mg/dL Estim Creat Clear Calc Estimated GFR Random Glucose (60-115) mg/dL Calcium (8.4-10.2) mg/dL Total Bilirubin (0.0-1.0) mg/dL AST (5-37) U/L ALT (0-40) U/L Alkaline Phosphatase (39-117) U/L Total Protein (6.5-8.0) g/dL Albumin (3.5-5.0) g/dL Urine Color YELLOW Urine Appearance CLOUDY Urine pH 6.5 (5.0-8.0) Ur Specific [place] 1.025 (1.005-1.025) Urine Protein NEG (NEG-TRACE) MG/DL Urine Glucose (UA) NEG (NEG) MG/DL Urine Ketones NEG (NEG) MG/DL Urine Blood TRACE (NEG) Urine Nitrite NEG (NEG) Ur Leukocyte Esterase 1+ H (NEG) Urine RBC 1-4 (0) /HPF Urine WBC 10-14 H (0-4) /HPF Ur Squamous Epith Cells 1+ /LPF Urine Bacteria 1+ /LPF Urine Mucus 1+ /LPF Urine Opiates Screen (Not Detect) Ur Barbiturates Screen (Not Detect) Valproic Acid 40.7 L (50.0-100.0) mcg/mL Ur Phencyclidine Scrn (Not Detect) Ur Amphetamines Screen (Not Detect) U Benzodiazepines Scrn (Not Detect) Urine Cocaine Screen (Not Detect) U Marijuana (THC) Screen (Not Detect) Ethyl Alcohol < 10 mg/dL <Kallie Man MD - Last Filed: 06/21/20 07:43> Discharge Plan Discharge Clinical Impression: Alzheimer's dementia, Suicidal ideation, Depression <Jackson Huber NP - Last Filed: 06/20/20 20:50> Prescriptions: No Action atorvastatin 40 mg Tablet 40 mg PO BEDTIME RF: 0 donepezil 5 mg Tablet 5 mg PO DAILY RF: 0 divalproex 250 mg Tablet,Delayed Release (Dr/Ec) 250 mg PO BID RF: 0 hydroxyzine pamoate 50 mg Capsule 50 mg PO Q4H PRN (Reason: Anxiety) RF: 0 melatonin 3 mg Tablet 3 mg PO BEDTIME RF: 0 pantoprazole 40 mg Tablet,Delayed Release (Dr/Ec) 40 mg PO DAILY RF: 0 lisinopril 5 mg Tablet 5 mg PO DAILY RF: 0 lorazepam 1 mg Tablet 1 mg PO Q6H PRN (Reason: Anxiety) RF: 0 risperidone [Risperdal] 1 mg Tablet 1 mg PO Q6H PRN (Reason: Agitation) RF: 0 risperidone [Risperdal] 1 mg Tablet 1 mg PO BID RF: 0 escitalopram oxalate 5 mg Tablet 5 mg PO DAILY RF: 0 mirtazapine 7.5 mg Tablet 7.5 mg PO BEDTIME RF: 0 albuterol sulfate [ProAir HFA] 90 mcg/actuation HFA aerosol inhaler 2 puff inhalation .4 TIMES A DAY PRN (Reason: Shortness Of Breath Or Wheezing) RF: 0 <Jackson Huber NP - Last Filed: 06/20/20 20:50>
[2020-06-20 13:13] VITALS: BP 125/82; PULSE 71; RESP 18; TEMP 36.9; O2SAT 98
[2020-06-20 13:14] VITALS: BP 125/82; PULSE 71; RESP 18; TEMP 36.9; O2SAT 98; BMI 27.4
--- NOTE | 2020-06-20 13:14 | ECG_ITS ---
Test Reason : CHECK CARDIC HISTORY Blood Pressure : / mmHG Vent. Rate : 062 BPM Atrial Rate : 062 BPM P-R Int : 154 ms QRS Dur : 096 ms QT Int : 404 ms P-R-T Axes : 061 046 059 degrees QTc Int : 410 ms Normal sinus rhythm Normal ECG No previous ECGs available Referred By: Jackson Huber Electronically Signed By:DARWIN RENE MD
[2020-06-20 13:40] LABS: Amphetamine Screen Urine Not Detected (Not Detect); Barbiturates, Urine Not Detected (Not Detect); Benzodiazepines Screen Urine Not Detected (Not Detect); Cannabinoid Screen Urine Not Detected (Not Detect); Cocaine Screen Urine Not Detected (Not Detect); Opiate Screen Urine Not Detected (Not Detect); Phencyclidine Screen Urine Not Detected (Not Detect)
[2020-06-20 13:42] LABS: MANUAL DIFF FLAG NO
[2020-06-20 13:43] LABS: Basophils Absolute Auto 0.1 X10*3/uL (0.0-0.2); Basophils Percent Auto 0.7 % (0-2); Eosinophils Absolute Auto 0.1 X10*3/uL (0.0-0.4); Eosinophils Percent Auto 1.7 % (0-4); Hematocrit 39.4 % (42-52); Hemoglobin 12.9 g/dl (14.0-18.0); Imm Gran Abs Auto 0.02 X10*3/uL (0.00-0.03); Imm Gran Pct Auto 0.3 % (0.0-0.4); Lymphocytes Absolute Auto 1.8 X10*3/uL (1.2-4.9); Lymphocytes Percent Auto 25.6 % (20-40); Mean Corpuscular HGB Conc 32.7 g/dl (31.0-36.0); Mean Corpuscular Hemoglobin 32.1 pg (27.0-33.0); Mean Platelet Volume 9.5 fL (9.4-12.4); Monocytes Absolute Auto 0.5 X10*3/uL (0.1-1.2); Neutrophils Absolute Auto 4.7 X10*3/uL (2.0-8.3); Neutrophils Percent Auto 64.7 % (45-73); Platelet Count 264 X10*3/uL (160-400); Red Blood Count 4.02 X10*6/uL (4.60-5.80); Red Cell Distribution Width 12.9 % (11.0-16.0); White Blood Count 7.2 X10*3/uL (4.8-10.8)
[2020-06-20 14:15] LABS: Ethanol < 10 mg/dL
[2020-06-20 14:16] LABS: Alanine Aminotransferase 15 U/L (0-40); Alkaline Phosphatase 61 U/L (39-117); Anion Gap 13 (12-20); Aspartate Amino Transferase 19 U/L (5-37); Bilirubin Total 0.3 mg/dL (0.0-1.0); Blood Urea Nitrogen 19 mg/dL (9-16); Calcium 9.2 mg/dL (8.4-10.2); Carbon Dioxide 28 mmol/L (22-29); Chloride 108 mmol/L (96-108); Creatinine Clr Calc Pharmacy 92.7; Estimated Glomerular Filt Rate > 60; Glucose Random 120 mg/dL (60-115); Potassium 4.5 mmol/l (3.3-5.1); Sodium 144 mmol/L (135-145); Total Protein 6.3 g/dL (6.5-8.0)
[2020-06-20 14:20] LABS: Valproate 40.7 mcg/mL (50.0-100.0)
[2020-06-20] MEDS: LORazepam 1 MG TABLET PO (15:48)
[2020-06-20 16:32] VITALS: BP 129/87; PULSE 75; RESP 16; TEMP 37; O2SAT 98
--- NOTE | 2020-06-20 18:40 | PC.NURSE ---
PT walking around unit, calm and cooperative, pt denies complaints. Pt asking to leave at times, plan of care explained. PT somewhat confused, pleasant.
--- NOTE | 2020-06-20 18:59 | PC.NURSE ---
Report received. Sitting next to the nurse's station. Calm and cooperative. PT is inpatient bed search.
[2020-06-21 00:56] VITALS: BP 104/65; PULSE 79; RESP 18; TEMP 36.7; O2SAT 99
[2020-06-21] MEDS: LORazepam 1 MG TABLET PO (02:14)
--- NOTE | 2020-06-21 02:36 | PC.NURSE ---
PT has been out of bed, standing at the nurse's station, and trying to push open the unit doors for most of the night. PT is very confused, talking to staff in Georgian about various topics that do not seem to be relevant to the situation. PT agreed to take PRN ativan and is starting to lay down in bed at this time.
[2020-06-21 04:40] LABS: Glucose Urine UA NEG (NEG); Leukocyte Esterase Urine 1+ (NEG); Nitrite Urine NEG (NEG); PH 6.5 (5.0-8.0); Specific Gravity - Urine 1.025 (1.005-1.025); Urine Blood TRACE (NEG); Urine Ketones NEG (NEG); Urine Protein NEG (NEG-TRACE)
[2020-06-21 04:41] LABS: Appearance Urine CLOUDY; Color Urine YELLOW
[2020-06-21 04:47] LABS: Bacteria Urine 1+ /LPF; Mucus Urine 1+ /LPF; Squamous Epithelial Cell Urine 1+ /LPF
[2020-06-21 06:00] VITALS: BP 147/89; PULSE 74; RESP 18; TEMP 36.6; O2SAT 99
--- NOTE | 2020-06-21 07:16 | PC.NURSE ---
Report recieved. Pt currently exit seeking, redirected away from the doors frequently. Pt tearful, attempted to enter another patients room, head banging behavior. Redirected back to his room to eat breakfast.
[2020-06-21 07:49] VITALS: BP 154/86; PULSE 106; RESP 20; TEMP 36.9; O2SAT 95
[2020-06-21] MEDS: Omeprazole 20 MG CAPSULE.DR PO (08:18)
[2020-06-21] MEDS: Donepezil HCl 5 MG TABLET PO (08:18)
[2020-06-21 08:19] VITALS: BP 154/86; PULSE 106
[2020-06-21] MEDS: lisinopriL 5 MG TABLET PO (08:19)
[2020-06-21] MEDS: risperiDONE 1 MG TABLET PO ×2 (08:19→20:03)
[2020-06-21] MEDS: Escitalopram Oxalate 5 MG TABLET PO (08:19)
[2020-06-21] MEDS: Divalproex Sodium 250 MG TABLET.DR PO ×2 (08:19→20:03)
--- NOTE | 2020-06-21 14:12 | PC.NURSE ---
Pt pleasantly confused, frequent redirection needed, pt attempting to put underwear on as a shirt, staff assisted PT to dress.
[2020-06-21] MEDS: hydrOXYzine HCL 50 MG TABLET PO ×2 (15:00→23:17)
[2020-06-21 15:01] LABS: COVID-19 Test Negative (Negative)
[2020-06-21 16:21] VITALS: BP 136/91; PULSE 88; RESP 16; TEMP 36.8; O2SAT 99
--- NOTE | 2020-06-21 19:03 | PC.NURSE ---
Report received. Pt currently resting in bed, no signs of distress, respirations unlabored.
[2020-06-21] MEDS: Melatonin 3 MG TABLET PO (20:03)
[2020-06-21] MEDS: Atorvastatin Calcium 40 MG TABLET PO (20:03)
[2020-06-21 20:41] VITALS: BP 129/87; PULSE 77; RESP 18; TEMP 37; O2SAT 98
[2020-06-21] MEDS: Mirtazapine 7.5 MG TABLET PO (21:31)
--- NOTE | 2020-06-21 21:57 | PC.NURSE ---
Pt sitting in common area, watching TV, needs reminders to keep celia shirt on, cooperative and redirectable.
--- NOTE | 2020-06-21 23:54 | PC.NURSE ---
Pt awake, wandering in and out of room periodically, confused.
--- NOTE | 2020-06-22 02:08 | PC.NURSE ---
Pt asleep at current, no signs of distress, respirations even and unlabored.
--- NOTE | 2020-06-22 07:27 | PC.NURSE ---
Report received from LUDWIG Ac. Pt awake, affect even,. no concerns reported.
[2020-06-22 08:00] VITALS: BP 147/77; PULSE 90; RESP 16; TEMP 36.5; O2SAT 98
[2020-06-22] MEDS: Escitalopram Oxalate 5 MG TABLET PO (08:17)
[2020-06-22] MEDS: Divalproex Sodium 250 MG TABLET.DR PO ×2 (08:17→20:41)
[2020-06-22] MEDS: Donepezil HCl 5 MG TABLET PO (08:18)
[2020-06-22] MEDS: risperiDONE 1 MG TABLET PO ×2 (08:18→19:05)
[2020-06-22] MEDS: Omeprazole 20 MG CAPSULE.DR PO (08:18)
[2020-06-22 08:19] VITALS: BP 147/77; PULSE 97
[2020-06-22] MEDS: lisinopriL 5 MG TABLET PO (08:19)
--- NOTE | 2020-06-22 09:17 | PC.NURSE ---
Pt awake, tearful, confused, requiring verbal reassurance frequently.
--- NOTE | 2020-06-22 09:26 | PC.NURSE ---
Pt confused, requiring re-orientation frequently.
--- NOTE | 2020-06-22 09:39 | PC.NURSE ---
Pt continues to stand outside of room, affect sad. reported chest pain to a- EKG ordered, bung driver called, Anthony gallegos
--- NOTE | 2020-06-22 09:44 | ECG_ITS ---
Test Reason : CHEST PAIN Blood Pressure : / mmHG Vent. Rate : 085 BPM Atrial Rate : 085 BPM P-R Int : 152 ms QRS Dur : 088 ms QT Int : 382 ms P-R-T Axes : 066 034 059 degrees QTc Int : 454 ms Normal sinus rhythm Normal ECG When compared with ECG of 20-JUN-2020 13:25, No significant change was found Referred By: Generic ED Physician Electronically Signed By:ELIAS MCCLURE
--- NOTE | 2020-06-22 09:45 | PC.NURSE ---
Biological Science Aide present. Pt not oriented to place or time, only to person. Pt stating that chest pain is emotional pain 03/05. Denieds nausea, denies SOB, no physical symptoms reported. EKG in process.
--- NOTE | 2020-06-22 10:55 | PC.NURSE ---
Pt continues to be restless, pacing slowly. Offered warm tea, now sitting in common area. Pt reoriented to place.
[2020-06-22] MEDS: hydrOXYzine HCL 50 MG TABLET PO ×2 (11:46→19:05)
--- NOTE | 2020-06-22 12:02 | PC.NURSE ---
pt out in the common area, sitting near the nurses station. pt reporting that he would like to go home, appears focused on leaving. Pt offered medication for anxiety- pt accepted, is now sitting calmly.
[2020-06-22] MEDS: LORazepam 1 MG TABLET PO (14:47)
--- NOTE | 2020-06-22 15:42 | PC.NURSE ---
Pt currently sitting in chair near nurse's station, affect even, smiling at times.
--- NOTE | 2020-06-22 16:52 | PC.NURSE ---
[facility] in to evaluate w/ flight engineer performance qualified.
--- NOTE | 2020-06-22 17:49 | PC.NURSE ---
Pt alert, pacing slowly. Pt encouraged to eat but continues to pace.
[2020-06-22 18:00] VITALS: RESP 18
--- NOTE | 2020-06-22 19:53 | PC.NURSE ---
Patient was restless and pacing earlier, medicated with PRN Risperidone and Hydroxyzine as ordered/patient compliant, currently in bed resting, no distress reported/observed at this time, will continue to monitor.
[2020-06-22] MEDS: Melatonin 3 MG TABLET PO (20:41)
[2020-06-22] MEDS: Mirtazapine 7.5 MG TABLET PO (20:41)
[2020-06-22] MEDS: Atorvastatin Calcium 40 MG TABLET PO (20:41)
[2020-06-22 21:59] VITALS: BP 106/70; PULSE 78; RESP 18; TEMP 36.6; O2SAT 99
[2020-06-23] VITALS (9 sets, daily range): BP systolic 100–105; BP diastolic 61–64; PULSE 64–93; RESP 16–20; TEMP 36.6; O2SAT 100
--- NOTE | 2020-06-23 01:13 | PC.NURSE ---
Patient in bed appears sleeping, no distress observed/reported, respiration +/=/non-labored bilaterally, will continue to monitor.
--- NOTE | 2020-06-23 07:13 | PC.NURSE ---
Report received from LUDWIG Haskins. Pt awake, affect even. No concerns reported.
[2020-06-23] MEDS: Divalproex Sodium 250 MG TABLET.DR PO ×2 (08:01→20:30)
[2020-06-23] MEDS: Omeprazole 20 MG CAPSULE.DR PO (08:01)
[2020-06-23] MEDS: Escitalopram Oxalate 5 MG TABLET PO (08:01)
[2020-06-23] MEDS: risperiDONE 1 MG TABLET PO ×4 (08:01→20:29)
[2020-06-23] MEDS: Donepezil HCl 5 MG TABLET PO (08:01)
[2020-06-23] MEDS: LORazepam 1 MG TABLET PO ×2 (09:16→20:25)
--- NOTE | 2020-06-23 09:42 | PC.NURSE ---
Pt began to cry, difficult to console, requesting to go home, requesting to see his . Given Ativan but pt continued to escalate, slapping himself in the head despite multiple interventions and attempts to distract using music, warm blankets, verbal reassurance.
--- NOTE | 2020-06-23 11:13 | PC.NURSE ---
Lisinoprile held for consistent low BP- C Christian aware.
--- NOTE | 2020-06-23 11:33 | PC.NURSE ---
Pt out in common area, affect even, watching television and tying knots into blanket.
--- NOTE | 2020-06-23 16:48 | PC.NURSE ---
[facility] re-evaluated the patient, disposition unchanged, section 12 in-patient bed search, patient calm and forgetful needs constant re-direction, will continue to monitor.
[2020-06-23] MEDS: hydrOXYzine HCL 50 MG TABLET PO (17:15)
--- NOTE | 2020-06-23 17:15 | PC.NURSE ---
Patient in tearful, upset, inconsolable. sat down floor crying, hitting himself with dinner tray, PRN, Resperidone and Hydroxyzine administered as ordered, was not compliant bu needed few re-approaches patient finally agreed to take it. Will continue to monitor.
[2020-06-23] MEDS: Atorvastatin Calcium 40 MG TABLET PO (20:23)
[2020-06-23] MEDS: Mirtazapine 7.5 MG TABLET PO (20:23)
[2020-06-23] MEDS: Melatonin 3 MG TABLET PO (20:29)
--- NOTE | 2020-06-23 21:12 | PC.NURSE ---
Patient compliant with HS PO medication, behavior stable and calm, no distress reported, will continue to monitor.
--- NOTE | 2020-06-24 00:15 | PC.NURSE ---
Patient in bed appears sleeping, no distress observed/reported, respiration +/=/non-labored bilaterally, will continue to monitor
[2020-06-24 06:00] VITALS: RESP 16
--- NOTE | 2020-06-24 07:17 | PC.NURSE ---
Report received from LUDWIG Haskins. Patient is asleep on bed at this time. Respirations regular and even. Skin PWD. Remains inpatient bed search at this time.
[2020-06-24 08:29] VITALS: BP 121/74; PULSE 90
[2020-06-24] MEDS: lisinopriL 5 MG TABLET PO (08:29)
[2020-06-24] MEDS: Divalproex Sodium 250 MG TABLET.DR PO ×2 (08:32→20:34)
[2020-06-24] MEDS: risperiDONE 1 MG TABLET PO ×2 (08:32→20:34)
[2020-06-24] MEDS: Escitalopram Oxalate 5 MG TABLET PO (08:33)
[2020-06-24] MEDS: Donepezil HCl 5 MG TABLET PO (08:33)
[2020-06-24] MEDS: Omeprazole 20 MG CAPSULE.DR PO (08:33)
--- NOTE | 2020-06-24 09:05 | PC.NURSE ---
Patient resting in bed at this time. Did become tearful and asked to lay down. Patient now appears comfortable and in no distress. Will continue to monitor.
[2020-06-24 09:50] VITALS: RESP 16
--- NOTE | 2020-06-24 10:55 | PC.NURSE ---
Report received. Pt currently sitting in common area. Calm and cooperative. No complaints at this time.
[2020-06-24] MEDS: LORazepam 1 MG TABLET PO (11:14)
--- NOTE | 2020-06-24 13:18 | PC.NURSE ---
Pt walking around the common area, smiling, calm and cooperative
[2020-06-24 15:33] VITALS: BP 114/75; PULSE 85; RESP 18; TEMP 36.2; O2SAT 100
--- NOTE | 2020-06-24 15:39 | PC.NURSE ---
Pt currently standing at RN station windows, no complaints at this time. Calm and cooperative.
--- NOTE | 2020-06-24 18:33 | PC.NURSE ---
Pt currently in common area, requires prompting to keep shirt on, but is redirectable.
--- NOTE | 2020-06-24 19:01 | PC.NURSE ---
Report received. PT is standing at the nurse's station. Not talking but in no apparent distress. PT is inpatient bed search.
[2020-06-24] MEDS: Atorvastatin Calcium 40 MG TABLET PO (20:34)
[2020-06-24] MEDS: Melatonin 3 MG TABLET PO (20:34)
[2020-06-24] MEDS: Mirtazapine 7.5 MG TABLET PO (21:16)
[2020-06-24 21:43] VITALS: BP 117/77; PULSE 99; RESP 18; TEMP 36.6; O2SAT 99
[2020-06-24 23:47] VITALS: BP 115/67; PULSE 69; RESP 18; TEMP 36.4; O2SAT 100
--- NOTE | 2020-06-25 02:01 | PC.NURSE ---
PT laying down in bed. Appears to be sleeping. Breathing is even and unlabored.
[2020-06-25] MEDS: hydrOXYzine HCL 50 MG TABLET PO ×3 (02:35→13:57)
--- NOTE | 2020-06-25 02:38 | PC.NURSE ---
PT is awake and out of bed. PT appears anxious; hyper verbal and tearful at this time. PRN med was given to help with anxiety.
--- NOTE | 2020-06-25 03:04 | PC.NURSE ---
PT fell asleep on the couch in the common area behind the nurse's station. Breathing is even and unlabored.
--- NOTE | 2020-06-25 03:42 | PC.NURSE ---
PT is awake again. Standing at the nurse's station. Calm, cooperative, and pleasant.
[2020-06-25 06:02] VITALS: BP 127/82; PULSE 82; RESP 18; TEMP 36.4; O2SAT 100
--- NOTE | 2020-06-25 06:54 | PC.NURSE ---
Report received. Pt currently sitting in common area, calm and cooperative. PT remains inpatient bedsearch.
[2020-06-25 08:42] VITALS: BP 127/82; PULSE 82
[2020-06-25] MEDS: Omeprazole 20 MG CAPSULE.DR PO (08:42)
[2020-06-25] MEDS: Escitalopram Oxalate 5 MG TABLET PO (08:42)
[2020-06-25] MEDS: Donepezil HCl 5 MG TABLET PO (08:42)
[2020-06-25] MEDS: Divalproex Sodium 250 MG TABLET.DR PO ×2 (08:42→21:10)
[2020-06-25] MEDS: lisinopriL 5 MG TABLET PO (08:42)
[2020-06-25] MEDS: risperiDONE 1 MG TABLET PO ×2 (08:42→21:10)
[2020-06-25 09:53] VITALS: BP 133/85; PULSE 89; RESP 16; TEMP 36.8; O2SAT 100
[2020-06-25 16:28] VITALS: BP 122/80; PULSE 73; RESP 18; TEMP 36.6; O2SAT 99
[2020-06-25 18:00] VITALS: RESP 16
--- NOTE | 2020-06-25 19:46 | PC.ADMIT ---
Pt is a 53 year ol, Turkmen speaking male who presented to from [facility] [place] [place] ED at approx 18:30 on a cv status. Pt is covid -, Utox -.Pt was evaluated in the ED secondary to suicidual ideation and attempting to self harm with a knife. Pt's reported that pt has not been sleeping or eating. Pt has history of 3 previous psych admissions over the past 2 years, with most recent admission 06/09/20-06/16/20 at [facility] for similar presentation of suicidality. Pt was uncooperative and refusing to respond to questions during his admission. Pt visible on unit talking with other Turkmen speaking males, but continues to not not talk with staff. Dr. Alfaro called for orders and notified of admission. Pt is on 15 min safety checks. Start treatment plan and monitor for safety
[2020-06-25] MEDS: hydrOXYzine HCL 25 MG TABLET PO (20:15)
[2020-06-25] MEDS: Mirtazapine 7.5 MG TABLET PO (21:10)
[2020-06-25] MEDS: Melatonin 3 MG TABLET PO (21:10)
[2020-06-25] MEDS: Atorvastatin Calcium 40 MG TABLET PO (21:10)
[2020-06-25 22:45] VITALS: BP 120/76; PULSE 101; TEMP 37.1
--- NOTE | 2020-06-26 | ECG_ITS ---
Test Reason : CHEST PAIN Blood Pressure : / mmHG Vent. Rate : 059 BPM Atrial Rate : 059 BPM P-R Int : 112 ms QRS Dur : 104 ms QT Int : 454 ms P-R-T Axes : 054 061 076 degrees QTc Int : 449 ms Sinus bradycardia Otherwise normal ECG No significant changes when compared with the previous EKG of 22 jun 2020 Referred By: Lory Liang Electronically Signed By:ELIAS MCCLURE
[2020-06-26] MEDS: hydrOXYzine HCL 50 MG TABLET PO (00:22)
[2020-06-26] MEDS: LORazepam 1 MG TABLET PO (01:17)
[2020-06-26] MEDS: risperiDONE 1 MG TABLET PO ×5 (01:17→20:24)
[2020-06-26 06:05] VITALS: BP 153/67; PULSE 77; RESP 16; TEMP 36.2; O2SAT 100
[2020-06-26] MEDS: Omeprazole 20 MG CAPSULE.DR PO (08:35)
[2020-06-26] MEDS: Escitalopram Oxalate 5 MG TABLET PO (08:35)
[2020-06-26] MEDS: Divalproex Sodium 250 MG TABLET.DR PO ×2 (08:36→20:24)
[2020-06-26] MEDS: Donepezil HCl 5 MG TABLET PO (08:36)
[2020-06-26 08:39] VITALS: BP 153/67; PULSE 77
[2020-06-26] MEDS: lisinopriL 5 MG TABLET PO (08:39)
[2020-06-26 09:15] LABS: Alanine Aminotransferase 17 U/L (0-40); Albumin Level 4.4 g/dL (3.5-5.0); Alkaline Phosphatase 55 U/L (39-117); Anion Gap 13 (12-20); Aspartate Amino Transferase 22 U/L (5-37); Bilirubin Total 0.5 mg/dL (0.0-1.0); Blood Urea Nitrogen 19 mg/dL (9-16); Calcium 9.6 mg/dL (8.4-10.2); Carbon Dioxide 26 mmol/L (22-29); Chloride 105 mmol/L (96-108); Cholesterol 120 mg/dL; Creatinine Clr Calc Pharmacy 94.8; Estimated Glomerular Filt Rate > 60; Glucose Fasting 88 mg/dL (60-99); HDL Cholesterol 46 mg/dL; LDL Cholesterol Calculated 64 mg/dl; Potassium 4.3 mmol/l (3.3-5.1); Sodium 140 mmol/L (135-145); Total Protein 6.9 g/dL (6.5-8.0); Triglycerides 52 mg/dL
--- NOTE | 2020-06-26 12:57 | HO.PSYADMNOT ---
HPI Chief Complaint: Bipolar DX SI Sources of Information: patient interviewed, chart reviewed and crisis/core team assessment reviewed HPI Narrative: Pt with worsening dementia with depression and sib reports to providers using knives at home to threaten self injury pt is too confused to report Past Psychiatric History: hx of prior psychiatric hospitalizations for same - here at [facility] [place] including a significant OD on benadryl in 2016 with behavioral/delerium- in which he was aggressive Medical Evaluation Reviewed: Yes [facility] Medical History Alzheimer disease Alzheimer's dementia Anxiety Asthma Benign essential hypertension Bipolar depression BPH (benign prostatic hyperplasia) GERD (gastroesophageal reflux disease) High cholesterol Insomnia Lumbar degenerative disc disease Neurocognitive disorder Pure hypercholesterolemia Smoker Surgical History History of discectomy History of removal of cyst History of surgery Narrative: lives at home with Diagnostics Vital Signs (24Hr): Vital Signs - 24 hr 06/25/20 16:28 06/25/20 18:00 06/25/20 22:45 Temperature 97.8 F 98.7 F Pulse Rate 73 101 H Respiratory Rate 18 16 Blood Pressure 122/80 120/76 Pulse Oximetry 99 06/26/20 06:05 06/26/20 08:39 Temperature 97.1 F Pulse Rate 77 77 Respiratory Rate 16 Blood Pressure 153/67 H 153/67 H Pulse Oximetry 100 Body Mass Index 27.4 Labs Results: 06/20/20 13:36 06/26/20 08:25 Labs: Laboratory Results - last 48 hr 06/26/20 08:25 Sodium 140 Potassium 4.3 Chloride 105 Carbon Dioxide 26 Anion Gap 13 BUN 19 H Creatinine 0.86 Estim Creat Clear Calc 94.8 Estimated GFR > 60 Fasting Glucose 88 Calcium 9.6 Total Bilirubin 0.5 AST 22 ALT 17 Alkaline Phosphatase 55 Total Protein 6.9 Albumin 4.4 Triglycerides 52 Cholesterol 120 LDL Cholesterol, Calc 64 HDL Cholesterol 46 Meds/Allergies Meds Home Medications Acetaminophen (Acetaminophen 325 Mg Tablet) 650 mg PO Q6H PRN PRN Reason: Headache/Pain Mild Scale (1-3) Al Hydroxide/Mg Hydroxide (Magnesium Hydrox/Alum Hydrox 30 Ml Oral.Susp) 30 ml PO Q6H PRN PRN Reason: Heartburn/Nausea Albuterol Sulfate (Albuterol Sulfate 90 Mcg 8 Gm Inhaler) 2 puff INHALE .4 TIMES A DAY PRN PRN Reason: Shortness Of Breath Or Wheezing Atorvastatin Calcium (Atorvastatin Calcium 40 Mg Tablet) 40 mg PO BEDTIME [facility] Last Admin: 06/25/20 21:10 Dose: 40 mg Documented by: Cefuroxime Axetil (Cefuroxime Axetil 250 Mg Tablet) 250 mg PO Q12H [facility] Stop: 06/28/20 08:14 Last Admin: 06/26/20 08:40 Dose: 250 mg Documented by: Divalproex Sodium (Divalproex Sodium 250 Mg Tablet.) 250 mg PO BID [facility] Last Admin: 06/26/20 08:36 Dose: 250 mg Documented by: Donepezil HCl (Donepezil Hcl 5 Mg Tablet) 5 mg PO DAILY [facility] Last Admin: 06/26/20 08:36 Dose: 5 mg Documented by: Escitalopram Oxalate (Escitalopram Oxalate 5 Mg Tablet) 5 mg PO DAILY [facility] Last Admin: 06/26/20 08:35 Dose: 5 mg Documented by: Hydroxyzine HCl (Hydroxyzine Hcl 50 Mg Tablet) 50 mg PO Q4H PRN PRN Reason: Anxiety Last Admin: 06/26/20 00:22 Dose: 50 mg Documented by: Hydroxyzine HCl (Hydroxyzine Hcl 25 Mg Tablet) 25 mg PO BEDTIME PRN PRN Reason: Anxiety Last Admin: 06/25/20 20:15 Dose: 25 mg Documented by: Lisinopril (Lisinopril 5 Mg Tablet) 5 mg PO DAILY [facility]; Protocol Last Admin: 06/26/20 08:39 Dose: 5 mg Documented by: Magnesium Hydroxide (Milk Of Magnesia 30 Ml Oral.Susp) 30 ml PO DAILY PRN PRN Reason: Constipation Melatonin (Melatonin 3 Mg Tablet) 3 mg PO BEDTIME [facility] Last Admin: 06/25/20 21:10 Dose: 3 mg Documented by: Mirtazapine (Mirtazapine 7.5 Mg Tablet) 7.5 mg PO BEDTIME [facility] Last Admin: 06/25/20 21:10 Dose: 7.5 mg Documented by: Omeprazole (Omeprazole 20 Mg Capsule.) 20 mg PO DAILY [facility] Last Admin: 06/26/20 08:35 Dose: 20 mg Documented by: Risperidone (Risperidone 1 Mg Tablet) 1 mg PO BID [facility] Last Admin: 06/26/20 08:36 Dose: 1 mg Documented by: Risperidone (Risperidone 1 Mg Tablet) 1 mg PO Q6H PRN PRN Reason: Agitation Last Admin: 06/26/20 18:40 Dose: 1 mg Documented by: Trazodone HCl (Trazodone Hcl 50 Mg Tablet) 50 mg PO BEDTIME PRN PRN Reason: Insomnia Allergies Allergies Allergy/AdvReac Type Severity Reaction Status Date / Time ciprofloxacin [CIPROFLOXACIN] AdvReac Intermediate DIARRHEA Verified 04/20/20 16:07 Mental Status Exam Mental Status Exam Narrative: dressed in celia- looking donw, tearful Patient Appearance: Disheveled Patient Orientation: Person Level of Consciousness: Awake Patient Behavior: Passive and Confused Mood Description: Depressed Affect Description: Depressed Patient Cognition Impaired: Yes Ability to Follow Directions: Poor Speech Pattern: Garbled and Mumbled Hallucinations: Auditory Delusions: Paranoid Ideation Thought Process: Disoriented Thought Content: positive for Disoriented Depressive Symptoms: Increased Anxiety, Unhappiness and Thoughts of /Suicide Judgement: Poor Assessment & Plan Assessment & Plan (1) Alzheimer's dementia: Status: Acute Code(s): G30.9 - Alzheimer's disease, unspecified; F02.80 - Dementia in other diseases classified elsewhere without behavioral disturbance Assessment and Plan: continue to monitor mental status- he seems very declined re cognitive (2) Bipolar depression: Status: Acute Code(s): F31.9 - Bipolar disorder, unspecified Assessment and Plan: worsening depression in setting of alz dementia decline Informed Consent: does not understand Reason for continued inpatient stay Substantial Risk for: harm to self, inability to function and rapid decompensation
[2020-06-26 17:30] VITALS: BP 98/61; PULSE 61; TEMP 36.9
[2020-06-26] MEDS: Melatonin 3 MG TABLET PO (20:24)
[2020-06-26] MEDS: Atorvastatin Calcium 40 MG TABLET PO (20:24)
[2020-06-26] MEDS: Mirtazapine 7.5 MG TABLET PO (20:24)
[2020-06-27] MEDS: hydrOXYzine HCL 50 MG TABLET PO ×2 (00:26→16:31)
[2020-06-27] MEDS: traZODone HCL 50 MG TABLET PO (00:26)
[2020-06-27] MEDS: risperiDONE 1 MG TABLET PO ×2 (09:15→09:52)
[2020-06-27 09:16] VITALS: BP 98/61; PULSE 61
[2020-06-27] MEDS: Divalproex Sodium 250 MG TABLET.DR PO ×2 (09:16→20:24)
[2020-06-27] MEDS: Omeprazole 20 MG CAPSULE.DR PO (09:16)
[2020-06-27] MEDS: Donepezil HCl 5 MG TABLET PO (09:16)
[2020-06-27] MEDS: lisinopriL 5 MG TABLET PO (09:16)
[2020-06-27] MEDS: Escitalopram Oxalate 5 MG TABLET PO (09:17)
--- NOTE | 2020-06-27 13:06 | HO.PSYCHPN ---
Subjective Subjective Date of Service: 06/27/20 Reason For Visit: Bipolar DX SI Subjective Notes: Conditional Voluntary Interim History: Pt recurrently breaking out into tears- says hearing voices, and depressed, ongoing poor memory and confused thinking - (seen with screen printer helper today) Medication Compliance: Yes Side effects from medications: No Attending Groups: No Review of Systems Review of Systems: continued complaint of chest pain Mental Status Exam Mental Status Exam Patient Appearance: Disheveled and Unkempt Patient Orientation: Person Level of Consciousness: Awake Patient Behavior: Dependent and Passive Mood Description: Depressed and Sad Affect Description: Labile (almost pseudobulbar like affect- but only of sadness/tears- no laughing) Patient Cognition Impaired: Yes Ability to Follow Directions: Poor Speech Pattern: Rambling and Poor Articulation Memory Description: Episodic Impaired Hallucinations: Auditory Delusions: Paranoid Ideation Thought Process: Disoriented Thought Content: positive for Disoriented, positive for Incoherent and positive for Suicidal Ideation Depressive Symptoms: Increased Anxiety, Feelings of Worthlessness and Unhappiness Judgement: Poor Diagnostics Vital Signs (24Hr): Vital Signs - 24 hr 06/26/20 17:30 06/27/20 09:16 Temperature 98.4 F Pulse Rate 61 61 Blood Pressure 98/61 98/61 Body Mass Index 30.0 Labs Results: 06/20/20 13:36 06/26/20 08:25 Labs: Laboratory Results - last 48 hr 06/26/20 08:25 Sodium 140 Potassium 4.3 Chloride 105 Carbon Dioxide 26 Anion Gap 13 BUN 19 H Creatinine 0.86 Estim Creat Clear Calc 94.8 Estimated GFR > 60 Fasting Glucose 88 Calcium 9.6 Total Bilirubin 0.5 AST 22 ALT 17 Alkaline Phosphatase 55 Total Protein 6.9 Albumin 4.4 Triglycerides 52 Cholesterol 120 LDL Cholesterol, Calc 64 HDL Cholesterol 46 Medications Medications Current Medications Generic Name Dose Route Start Last Admin Trade Name Freq PRN Reason Stop Dose Admin Acetaminophen 650 mg 06/25/20 17:15 Acetaminophen 325 Mg Tablet PO Q6H PRN Headache/Pain Mild Scale (1-3) Al Hydroxide/Mg Hydroxide 30 ml 06/25/20 17:15 Magnesium Hydrox/Alum Hydrox 30 Ml Oral.Susp PO Q6H PRN Heartburn/Nausea Albuterol Sulfate 2 puff 06/21/20 01:41 Albuterol Sulfate 90 Mcg 8 Gm Inhaler INHALE .4 TIMES A DAY PRN Shortness Of Breath Or Wheezing Atorvastatin Calcium 40 mg 06/21/20 21:00 06/26/20 20:24 Atorvastatin Calcium 40 Mg Tablet PO 40 mg BEDTIME [facility] Administration Cefuroxime Axetil 250 mg 06/21/20 08:15 06/27/20 09:16 Cefuroxime Axetil 250 Mg Tablet PO 06/28/20 08:14 250 mg Q12H [facility] Administration Divalproex Sodium 250 mg 06/21/20 09:00 06/27/20 09:16 Divalproex Sodium 250 Mg Tablet.Dr PO 250 mg BID [facility] Administration Donepezil HCl 5 mg 06/21/20 09:00 06/27/20 09:16 Donepezil Hcl 5 Mg Tablet PO 5 mg DAILY [facility] Administration Escitalopram Oxalate 10 mg 06/28/20 09:00 Escitalopram Oxalate 10 Mg Tablet PO DAILY [facility] Hydroxyzine HCl 50 mg 06/21/20 02:32 06/27/20 00:26 Hydroxyzine Hcl 50 Mg Tablet PO 50 mg Q4H PRN Administration Anxiety Hydroxyzine HCl 25 mg 06/25/20 17:15 06/25/20 20:15 Hydroxyzine Hcl 25 Mg Tablet PO 25 mg BEDTIME PRN Administration Anxiety Lisinopril 5 mg 06/21/20 09:00 06/27/20 09:16 Lisinopril 5 Mg Tablet PO 5 mg DAILY [facility] Administration Protocol Lorazepam 0.5 mg 06/27/20 09:49 Lorazepam 0.5 Mg Tablet PO Q4H PRN Anxiety Magnesium Hydroxide 30 ml 06/25/20 17:15 Milk Of Magnesia 30 Ml Oral.Susp PO DAILY PRN Constipation Melatonin 3 mg 06/21/20 21:00 06/26/20 20:24 Melatonin 3 Mg Tablet PO 3 mg BEDTIME [facility] Administration Mirtazapine 15 mg 06/27/20 21:00 Mirtazapine 7.5 Mg Tablet PO BEDTIME [facility] Omeprazole 20 mg 06/21/20 09:00 06/27/20 09:16 Omeprazole 20 Mg Capsule.Dr PO 20 mg DAILY [facility] Administration Risperidone 1 mg 06/21/20 09:00 06/27/20 09:15 Risperidone 1 Mg Tablet PO 1 mg BID [facility] Administration Risperidone 1 mg 06/21/20 01:41 06/27/20 09:52 Risperidone 1 Mg Tablet PO 1 mg Q6H PRN Administration Agitation Trazodone HCl 50 mg 06/25/20 17:15 06/27/20 00:26 Trazodone Hcl 50 Mg Tablet PO 50 mg BEDTIME PRN Administration Insomnia increase risperidone to 1.5mg bid Allergies Allergies Allergy/AdvReac Type Severity Reaction Status Date / Time ciprofloxacin [CIPROFLOXACIN] AdvReac Intermediate DIARRHEA Verified 04/20/20 16:07 Assessment & Plan Assessment & Plan (1) Alzheimer's dementia: Status: Acute Code(s): G30.9 - Alzheimer's disease, unspecified; F02.80 - Dementia in other diseases classified elsewhere without behavioral disturbance Assessment and Plan: ongoing decline in cognitive state (2) Bipolar depression: Status: Acute Code(s): F31.9 - Bipolar disorder, unspecified Assessment and Plan: ongoing depressive, tearfulness and ah - and suicidal - inc risperidone to 1.5mg bid will also increase antidepressants Greater than 50% of the session was spent on counseling and/or coordination of care
[2020-06-27] MEDS: LORazepam 0.5 MG TABLET PO (16:31)
[2020-06-27 16:42] VITALS: BP 112/73; PULSE 101; TEMP 37
[2020-06-27] MEDS: Melatonin 3 MG TABLET PO (20:24)
[2020-06-27] MEDS: Atorvastatin Calcium 40 MG TABLET PO (20:25)
[2020-06-27] MEDS: Mirtazapine 7.5 MG TABLET 15 MG PO (20:25)
[2020-06-27] MEDS: risperiDONE 0.5 MG TABLET 1.5 MG PO (20:25)
[2020-06-28] MEDS: LORazepam 0.5 MG TABLET PO (01:11)
[2020-06-28] MEDS: hydrOXYzine HCL 50 MG TABLET PO ×2 (01:11→16:35)
[2020-06-28] MEDS: traZODone HCL 50 MG TABLET PO (02:11)
[2020-06-28 06:00] VITALS: BP 101/68; PULSE 78; RESP 16; TEMP 36.6; O2SAT 98
[2020-06-28 09:03] VITALS: BP 101/68; PULSE 78
[2020-06-28] MEDS: Donepezil HCl 5 MG TABLET PO (09:03)
[2020-06-28] MEDS: Divalproex Sodium 250 MG TABLET.DR PO ×2 (09:03→20:49)
[2020-06-28] MEDS: Omeprazole 20 MG CAPSULE.DR PO ×2 (09:03→09:04)
[2020-06-28] MEDS: risperiDONE 0.5 MG TABLET 1.5 MG PO ×2 (09:03→20:49)
[2020-06-28] MEDS: Escitalopram Oxalate 10 MG TABLET PO (09:03)
[2020-06-28] MEDS: lisinopriL 5 MG TABLET PO (09:03)
--- NOTE | 2020-06-28 13:06 | P.PNPSI_ITS ---
Subjective Subjective Date of Service: 06/28/20 Reason For Visit: Bipolar DX SI Subjective Notes: Section 12B Interim History: Pt can't explain himself, reports he is not sure why he is here- less tearful thinks he is here till I (till he dies) tolerated inc doses of antidepressants and risperidone, less labile affect, seems more intensly paranoid? or confused or both Medication Compliance: Yes Side effects from medications: No Attending Groups: No Review of Systems Review of Systems ongoing confusion and disorientation Mental Status Exam Mental Status Exam Patient Appearance: Disheveled and Rigid Patient Orientation: Person Level of Consciousness: Awake Patient Behavior: Passive and Good Eye Contact (staring at provider ) Mood Description: Suspicious and Flat Affect Description: Withdrawn and Flat Speech Pattern: Difficulty Finding Words and Poor Articulation Hallucinations: Auditory Delusions: Paranoid Ideation Thought Process: Disoriented and Confusion Thought Content: positive for Poverty of Content Depressive Symptoms: Thoughts of /Suicide Judgement: Poor Diagnostics Vital Signs (24Hr): Vital Signs - 24 hr 06/27/20 16:42 06/28/20 06:00 06/28/20 09:03 Temperature 98.6 F 97.8 F Pulse Rate 101 H 78 78 Respiratory Rate 16 Blood Pressure 112/73 101/68 101/68 Pulse Oximetry 98 Body Mass Index 30.0 Labs Results: 06/20/20 13:36 06/26/20 08:25 Medications Medications Current Medications Generic Name Dose Route Start Last Admin Trade Name Freq PRN Reason Stop Dose Admin Acetaminophen 650 mg 06/25/20 17:15 Acetaminophen 325 Mg Tablet PO Q6H PRN Headache/Pain Mild Scale (1-3) Al Hydroxide/Mg Hydroxide 30 ml 06/25/20 17:15 Magnesium Hydrox/Alum Hydrox 30 Ml Oral.Susp PO Q6H PRN Heartburn/Nausea Albuterol Sulfate 2 puff 06/21/20 01:41 Albuterol Sulfate 90 Mcg 8 Gm Inhaler INHALE .4 TIMES A DAY PRN Shortness Of Breath Or Wheezing Atorvastatin Calcium 40 mg 06/21/20 21:00 06/27/20 20:25 Atorvastatin Calcium 40 Mg Tablet PO 40 mg BEDTIME [facility] Administration Divalproex Sodium 250 mg 06/21/20 09:00 06/28/20 09:03 Divalproex Sodium 250 Mg Tablet.Dr PO 250 mg BID [facility] Administration Donepezil HCl 5 mg 06/21/20 09:00 06/28/20 09:03 Donepezil Hcl 5 Mg Tablet PO 5 mg DAILY [facility] Administration Escitalopram Oxalate 10 mg 06/28/20 09:00 06/28/20 09:03 Escitalopram Oxalate 10 Mg Tablet PO 10 mg DAILY [facility] Administration Hydroxyzine HCl 50 mg 06/21/20 02:32 06/28/20 01:11 Hydroxyzine Hcl 50 Mg Tablet PO 50 mg Q4H PRN Administration Anxiety Hydroxyzine HCl 25 mg 06/25/20 17:15 06/25/20 20:15 Hydroxyzine Hcl 25 Mg Tablet PO 25 mg BEDTIME PRN Administration Anxiety Lisinopril 5 mg 06/21/20 09:00 06/28/20 09:03 Lisinopril 5 Mg Tablet PO 5 mg DAILY [facility] Administration Protocol Lorazepam 0.5 mg 06/27/20 09:49 06/28/20 01:11 Lorazepam 0.5 Mg Tablet PO 0.5 mg Q4H PRN Administration Anxiety Magnesium Hydroxide 30 ml 06/25/20 17:15 Milk Of Magnesia 30 Ml Oral.Susp PO DAILY PRN Constipation Melatonin 3 mg 06/21/20 21:00 06/27/20 20:24 Melatonin 3 Mg Tablet PO 3 mg BEDTIME [facility] Administration Mirtazapine 15 mg 06/27/20 21:00 06/27/20 20:25 Mirtazapine 7.5 Mg Tablet PO 15 mg BEDTIME [facility] Administration Omeprazole 20 mg 06/21/20 09:00 06/28/20 09:04 Omeprazole 20 Mg Capsule.Dr PO 20 mg DAILY [facility] Administration Risperidone 1 mg 06/21/20 01:41 06/27/20 09:52 Risperidone 1 Mg Tablet PO 1 mg Q6H PRN Administration Agitation Risperidone 1.5 mg 06/27/20 21:00 06/28/20 09:03 Risperidone 0.5 Mg Tablet PO 1.5 mg BID [facility] Administration Trazodone HCl 50 mg 06/25/20 17:15 06/28/20 02:11 Trazodone Hcl 50 Mg Tablet PO 50 mg BEDTIME PRN Administration Insomnia Allergies Allergies Allergy/AdvReac Type Severity Reaction Status Date / Time ciprofloxacin [CIPROFLOXACIN] AdvReac Intermediate DIARRHEA Verified 04/20/20 16:07 Assessment & Plan Assessment & Plan (1) Alzheimer's dementia: Status: Acute Code(s): G30.9 - Alzheimer's disease, unspecified; F02.80 - Dementia in other diseases c lassified elsewhere without behavioral disturbance Assessment and Plan: on aricept (2) Bipolar depression: Status: Acute Code(s): F31.9 - Bipolar disorder, unspecified Assessment and Plan: ongoing paranoid depressed and confusion, thoughts of his dying- unclear how/why Greater than 50% of the session was spent on counseling and/or coordination of care
[2020-06-28 18:00] VITALS: BP 109/65; PULSE 85; TEMP 36.7
[2020-06-28] MEDS: Acetaminophen 325 MG TABLET 650 MG PO (18:47)
[2020-06-28] MEDS: Mirtazapine 7.5 MG TABLET 15 MG PO (20:49)
[2020-06-28] MEDS: Melatonin 3 MG TABLET PO (20:49)
[2020-06-28] MEDS: Atorvastatin Calcium 40 MG TABLET PO (20:50)
[2020-06-29] MEDS: LORazepam 0.5 MG TABLET PO ×3 (02:48→23:55)
[2020-06-29] MEDS: traZODone HCL 50 MG TABLET PO ×2 (02:48→23:55)
[2020-06-29 06:05] VITALS: BP 90/54; PULSE 51; RESP 16; TEMP 36.3; O2SAT 99
[2020-06-29] MEDS: risperiDONE 0.5 MG TABLET 1.5 MG PO ×2 (09:15→20:15)
[2020-06-29] MEDS: Omeprazole 20 MG CAPSULE.DR PO (09:16)
[2020-06-29] MEDS: Divalproex Sodium 250 MG TABLET.DR PO ×2 (09:16→20:16)
[2020-06-29] MEDS: Escitalopram Oxalate 10 MG TABLET PO (09:16)
[2020-06-29] MEDS: Donepezil HCl 5 MG TABLET PO (09:16)
[2020-06-29 09:17] VITALS: BP 90/54; PULSE 51
[2020-06-29] MEDS: lisinopriL 5 MG TABLET PO (09:17)
[2020-06-29] MEDS: hydrOXYzine HCL 50 MG TABLET PO (14:29)
--- NOTE | 2020-06-29 16:38 | PC.NURSE ---
This va underwriter spoke with the patient's after he gave verbal permission on his release of information. The patient's wanted to know how is feeling and if there is a plan for his discharge. This va underwriter explained that patient is up and dressed, he is eating, sleep is still impaired and patient remains confused. The said that she has had issues with the visiting nurse service letting the patient's medications run out and then he does not have his medications for several days until they are refilled. She is not sure who could help her with this issue, but she notices that he gets worse when he does not consistently have his medications.
[2020-06-29 18:00] VITALS: BP 127/70; PULSE 74; TEMP 36.2
[2020-06-29] MEDS: risperiDONE 1 MG TABLET PO (18:19)
[2020-06-29] MEDS: Mirtazapine 7.5 MG TABLET 15 MG PO (20:15)
[2020-06-29] MEDS: Atorvastatin Calcium 40 MG TABLET PO (20:15)
[2020-06-29] MEDS: Melatonin 3 MG TABLET PO (20:17)
--- NOTE | 2020-06-29 23:06 | HO.PSYCHPN ---
Subjective Subjective Date of Service: 06/29/20 Reason For Visit: Bipolar DX SI Interim History: patient seen within aide of interpeter mood depressed anxious irritable cannot say where he is that he is in the hospital hears the devil's voice having urges of self-harm Diagnostics Vital Signs (24Hr): Vital Signs - 24 hr 06/29/20 06:05 06/29/20 09:17 06/29/20 18:00 Temperature 97.3 F 97.2 F Pulse Rate 51 51 74 Respiratory Rate 16 Blood Pressure 90/54 L 90/54 L 127/70 Pulse Oximetry 99 Body Mass Index 30.0 Labs Results: 06/20/20 13:36 06/26/20 08:25 Medications Medications Current Medications Generic Name Dose Route Start Last Admin Trade Name Freq PRN Reason Stop Dose Admin Acetaminophen 650 mg 06/25/20 17:15 06/28/20 18:47 Acetaminophen 325 Mg Tablet PO 650 mg Q6H PRN Administration Headache/Pain Mild Scale (1-3) Al Hydroxide/Mg Hydroxide 30 ml 06/25/20 17:15 Magnesium Hydrox/Alum Hydrox 30 Ml Oral.Susp PO Q6H PRN Heartburn/Nausea Albuterol Sulfate 2 puff 06/21/20 01:41 Albuterol Sulfate 90 Mcg 8 Gm Inhaler INHALE .4 TIMES A DAY PRN Shortness Of Breath Or Wheezing Atorvastatin Calcium 40 mg 06/21/20 21:00 06/29/20 20:15 Atorvastatin Calcium 40 Mg Tablet PO 40 mg BEDTIME [facility] Administration Divalproex Sodium 250 mg 06/21/20 09:00 06/29/20 20:16 Divalproex Sodium 250 Mg Tablet.Dr PO 250 mg BID [facility] Administration Donepezil HCl 5 mg 06/21/20 09:00 06/29/20 09:16 Donepezil Hcl 5 Mg Tablet PO 5 mg DAILY [facility] Administration Escitalopram Oxalate 10 mg 06/28/20 09:00 06/29/20 09:16 Escitalopram Oxalate 10 Mg Tablet PO 10 mg DAILY [facility] Administration Hydroxyzine HCl 50 mg 06/21/20 02:32 06/29/20 14:29 Hydroxyzine Hcl 50 Mg Tablet PO 50 mg Q4H PRN Administration Anxiety Hydroxyzine HCl 25 mg 06/25/20 17:15 06/25/20 20:15 Hydroxyzine Hcl 25 Mg Tablet PO 25 mg BEDTIME PRN Administration Anxiety Lisinopril 5 mg 06/21/20 09:00 06/29/20 09:17 Lisinopril 5 Mg Tablet PO 5 mg DAILY [facility] Administration Protocol Lorazepam 0.5 mg 06/27/20 09:49 06/29/20 11:07 Lorazepam 0.5 Mg Tablet PO 0.5 mg Q4H PRN Administration Anxiety Magnesium Hydroxide 30 ml 06/25/20 17:15 Milk Of Magnesia 30 Ml Oral.Susp PO DAILY PRN Constipation Melatonin 3 mg 06/21/20 21:00 06/29/20 20:17 Melatonin 3 Mg Tablet PO 3 mg BEDTIME [facility] Administration Mirtazapine 15 mg 06/27/20 21:00 06/29/20 20:15 Mirtazapine 7.5 Mg Tablet PO 15 mg BEDTIME [facility] Administration Omeprazole 20 mg 06/21/20 09:00 06/29/20 09:16 Omeprazole 20 Mg Capsule.Dr PO 20 mg DAILY [facility] Administration Risperidone 1 mg 06/21/20 01:41 06/29/20 18:19 Risperidone 1 Mg Tablet PO 1 mg Q6H PRN Administration Agitation Risperidone 1.5 mg 06/27/20 21:00 06/29/20 20:15 Risperidone 0.5 Mg Tablet PO 1.5 mg BID [facility] Administration Trazodone HCl 50 mg 06/25/20 17:15 06/29/20 02:48 Trazodone Hcl 50 Mg Tablet PO 50 mg BEDTIME PRN Administration Insomnia Allergies Allergies Allergy/AdvReac Type Severity Reaction Status Date / Time ciprofloxacin [CIPROFLOXACIN] AdvReac Intermediate DIARRHEA Verified 04/20/20 16:07 Assessment & Plan Assessment & Plan (1) Bipolar depression: Status: Acute Code(s): F31.9 - Bipolar disorder, unspecified (2) GERD (gastroesophageal reflux disease): Qualifiers: Esophagitis presence: without esophagitis Qualified Code(s): K21.9 - Gastro-esophageal reflux disease without esophagitis Status: Acute Code(s): K21.9 - Gastro-esophageal reflux disease without esophagitis (3) Alzheimer's dementia: Status: Acute Code(s): G30.9 - Alzheimer's disease, unspecified; F02.80 - Dementia in other diseases classified elsewhere without behavioral disturbance (4) Benign essential hypertension: Status: Acute Code(s): I10 - Essential (primary) hypertension Assessment and Plan: increase Risperdal to 2 mg b.i.d. monitor safety to himself and others continue treatment of medical problems as per previous plan Greater than 50% of the session was spent on counseling and/or coordination of care Informed Consent: further education needed Reason for contiued inpatient stay Substantial Risk for: harm to self
[2020-06-29] MEDS: hydrOXYzine HCL 25 MG TABLET PO (23:08)
[2020-06-29] MEDS: Acetaminophen 325 MG TABLET 650 MG PO (23:13)
[2020-06-30] MEDS: hydrOXYzine HCL 50 MG TABLET PO (03:03)
[2020-06-30] MEDS: traZODone HCL 50 MG TABLET PO (03:04)
[2020-06-30 06:05] VITALS: BP 122/74; PULSE 78; RESP 16; TEMP 36.3; O2SAT 98
[2020-06-30 08:27] VITALS: BP 122/74; PULSE 78
[2020-06-30] MEDS: Omeprazole 20 MG CAPSULE.DR PO (08:27)
[2020-06-30] MEDS: lisinopriL 5 MG TABLET PO (08:27)
[2020-06-30] MEDS: Donepezil HCl 5 MG TABLET PO (08:28)
[2020-06-30] MEDS: Escitalopram Oxalate 10 MG TABLET PO (08:28)
[2020-06-30] MEDS: risperiDONE 0.5 MG TABLET 1.5 MG PO (08:28)
[2020-06-30] MEDS: Divalproex Sodium 250 MG TABLET.DR PO (08:28)
[2020-06-30] MEDS: LORazepam 0.5 MG TABLET PO (11:42)
[2020-06-30 18:00] VITALS: BP 134/70; PULSE 89; TEMP 36.8
[2020-06-30] MEDS: Acetaminophen 325 MG TABLET 650 MG PO (20:03)
[2020-06-30] MEDS: Melatonin 3 MG TABLET PO (20:04)
[2020-06-30] MEDS: Atorvastatin Calcium 40 MG TABLET PO (20:04)
[2020-06-30] MEDS: Mirtazapine 7.5 MG TABLET 15 MG PO (20:04)
[2020-06-30] MEDS: risperiDONE 2 MG TABLET PO (20:04)
--- NOTE | 2020-06-30 22:14 | P.PNPSI_ITS ---
Subjective Subjective Date of Service: 06/30/20 Reason For Visit: Bipolar DX SI Subjective Notes: Section 12B Interim History: patient seems calmer today seen with the a video public safety director social Work describes history from of recent hospitalization Medication Compliance: Yes Mental Status Exam Mental Status Exam Patient Appearance: Appropriate and Rigid Patient Orientation: Person Level of Consciousness: Awake Patient Behavior: Appropriate, Passive and Good Eye Contact (staring at provider ) Mood Description: Suspicious and Flat Affect Description: Withdrawn and Flat Patient Cognition Impaired: Yes Speech Pattern: Difficulty Finding Words and Poor Articulation Hallucinations: Auditory Delusions: Paranoid Ideation Thought Process: Disoriented and Confusion Thought Content: positive for Poverty of Content Depressive Symptoms: Thoughts of /Suicide Judgement: Poor Judgement and Insight: improved behavior today patient calmer not organized in thought denies current hallucinations related to the devil Diagnostics Vital Signs (24Hr): Vital Signs - 24 hr 06/30/20 06:05 06/30/20 08:27 06/30/20 18:00 Temperature 97.4 F 98.2 F Pulse Rate 78 78 89 Respiratory Rate 16 Blood Pressure 122/74 122/74 134/70 Pulse Oximetry 98 Body Mass Index 30.0 Labs Results: 06/20/20 13:36 06/26/20 08:25 Medications Medications Current Medications Generic Name Dose Route Start Last Admin Trade Name Freq PRN Reason Stop Dose Admin Acetaminophen 650 mg 06/25/20 17:15 06/30/20 20:03 Acetaminophen 325 Mg Tablet PO 650 mg Q6H PRN Administration Headache/Pain Mild Scale (1-3) Al Hydroxide/Mg Hydroxide 30 ml 06/25/20 17:15 Magnesium Hydrox/Alum Hydrox 30 Ml Oral.Susp PO Q6H PRN Heartburn/Nausea Albuterol Sulfate 2 puff 06/21/20 01:41 Albuterol Sulfate 90 Mcg 8 Gm Inhaler INHALE .4 TIMES A DAY PRN Shortness Of Breath Or Wheezing Atorvastatin Calcium 40 mg 06/21/20 21:00 06/30/20 20:04 Atorvastatin Calcium 40 Mg Tablet PO 40 mg BEDTIME RAMON Administration Divalproex Sodium 375 mg 06/30/20 21:00 06/30/20 20:04 Divalproex Sodium 125 Mg Tablet.Dr PO 375 mg BID RAMON Administration Donepezil HCl 5 mg 06/21/20 09:00 06/30/20 08:28 Donepezil Hcl 5 Mg Tablet PO 5 mg DAILY RAMON Administration Escitalopram Oxalate 10 mg 06/28/20 09:00 06/30/20 08:28 Escitalopram Oxalate 10 Mg Tablet PO 10 mg DAILY RAMON Administration Hydroxyzine HCl 50 mg 06/21/20 02:32 06/30/20 03:03 Hydroxyzine Hcl 50 Mg Tablet PO 50 mg Q4H PRN Administration Anxiety Hydroxyzine HCl 25 mg 06/25/20 17:15 06/29/20 23:08 Hydroxyzine Hcl 25 Mg Tablet PO 25 mg BEDTIME PRN Administration Anxiety Lisinopril 5 mg 06/21/20 09:00 06/30/20 08:27 Lisinopril 5 Mg Tablet PO 5 mg DAILY RAMON Administration Protocol Lorazepam 0.5 mg 06/27/20 09:49 06/30/20 11:42 Lorazepam 0.5 Mg Tablet PO 0.5 mg Q4H PRN Administration Anxiety Magnesium Hydroxide 30 ml 06/25/20 17:15 Milk Of Magnesia 30 Ml Oral.Susp PO DAILY PRN Constipation Melatonin 3 mg 06/21/20 21:00 06/30/20 20:04 Melatonin 3 Mg Tablet PO 3 mg BEDTIME RAMON Administration Mirtazapine 15 mg 06/27/20 21:00 06/30/20 20:04 Mirtazapine 7.5 Mg Tablet PO 15 mg BEDTIME RAMON Administration Omeprazole 20 mg 06/21/20 09:00 06/30/20 08:27 Omeprazole 20 Mg Capsule.Dr PO 20 mg DAILY RAMON Administration Risperidone 1 mg 06/21/20 01:41 06/29/20 18:19 Risperidone 1 Mg Tablet PO 1 mg Q6H PRN Administration Agitation Risperidone 2 mg 06/30/20 21:00 06/30/20 20:04 Risperidone 2 Mg Tablet PO 2 mg BID RAMON Administration Trazodone HCl 50 mg 06/25/20 17:15 06/30/20 03:04 Trazodone Hcl 50 Mg Tablet PO 50 mg BEDTIME PRN Administration Insomnia Allergies Allergies Allergy/AdvReac Type Severity Reaction Status Date / Time ciprofloxacin [CIPROFLOXACIN] AdvReac Intermediate DIARRHEA Verified 04/20/20 16:07 Assessment & Plan Assessment & Plan (1) Bipolar depression: Status: Acute Code(s): F31.9 - Bipolar disorder, unspecified Assessment and Plan: continue with Risperdal Lexapro discharge planning with (2) Alzheimer's dementia: Status: Acute Code(s): G30.9 - Alzheimer's disease, unspecified; F02.80 - Dementia in other diseases classified elsewhere without behavioral disturbance Greater than 50% of the session was spent on counseling and/or coordination of care
[2020-07-01] MEDS: traZODone HCL 50 MG TABLET PO (00:05)
[2020-07-01] MEDS: hydrOXYzine HCL 50 MG TABLET PO ×4 (00:05→16:38)
[2020-07-01] MEDS: LORazepam 0.5 MG TABLET PO ×4 (00:05→16:38)
[2020-07-01 06:00] VITALS: BP 136/69; PULSE 83; TEMP 36.4
[2020-07-01 07:56] VITALS: BP 136/69; PULSE 83
[2020-07-01] MEDS: lisinopriL 5 MG TABLET PO (07:56)
[2020-07-01] MEDS: Donepezil HCl 5 MG TABLET PO (07:56)
[2020-07-01] MEDS: risperiDONE 2 MG TABLET PO ×2 (07:56→20:34)
[2020-07-01] MEDS: Omeprazole 20 MG CAPSULE.DR PO (07:57)
[2020-07-01] MEDS: Escitalopram Oxalate 10 MG TABLET PO (07:57)
[2020-07-01 18:00] VITALS: BP 121/70; PULSE 79; TEMP 36.4
[2020-07-01] MEDS: Acetaminophen 325 MG TABLET 650 MG PO (19:19)
[2020-07-01] MEDS: Atorvastatin Calcium 40 MG TABLET PO (20:33)
[2020-07-01] MEDS: Mirtazapine 7.5 MG TABLET 15 MG PO (20:34)
[2020-07-01] MEDS: Melatonin 3 MG TABLET PO (20:34)
--- NOTE | 2020-07-01 21:41 | P.PNPSI_ITS ---
Subjective Subjective Date of Service: 07/01/20 Reason For Visit: Bipolar DX SI Subjective Notes: Conditional Voluntary Interim History: the patient does have a healthcare proxy his both the patient his signed the conditional voluntary patient is overall less labile but remains depressed at times tearful has not harmed himself history of bipolar disorder patient has a difficult time with word-finding Medication Compliance: Yes Attending Groups: No Mental Status Exam Mental Status Exam Patient Appearance: Appropriate and Rigid Patient Orientation: Person Level of Consciousness: Awake Patient Behavior: Appropriate, Passive and Good Eye Contact (staring at provider ) Mood Description: Suspicious and Flat Affect Description: Withdrawn and Flat Patient Cognition Impaired: Yes Speech Pattern: Difficulty Finding Words and Poor Articulation Hallucinations: Auditory Delusions: Paranoid Ideation Thought Process: Disoriented and Confusion Thought Content: positive for Poverty of Content Depressive Symptoms: Hopelessness and Thoughts of /Suicide Judgement: Poor Judgement and Insight: patient with ability periods of being come other periods of agitation and intense dysphoria Diagnostics Vital Signs (24Hr): Vital Signs - 24 hr 07/01/20 06:00 07/01/20 07:56 Temperature 97.6 F Pulse Rate 83 83 Blood Pressure 136/69 136/69 Body Mass Index 30.0 Labs Results: 06/20/20 13:36 06/26/20 08:25 Medications Medications Current Medications Generic Name Dose Route Start Last Admin Trade Name Nimaq PRN Reason Stop Dose Admin Acetaminophen 650 mg 06/25/20 17:15 07/01/20 19:19 Acetaminophen 325 Mg Tablet PO 650 mg Q6H PRN Administration Headache/Pain Mild Scale (1-3) Al Hydroxide/Mg Hydroxide 30 ml 06/25/20 17:15 Magnesium Hydrox/Alum Hydrox 30 Ml Oral.Susp PO Q6H PRN Heartburn/Nausea Albuterol Sulfate 2 puff 06/21/20 01:41 Albuterol Sulfate 90 Mcg 8 Gm Inhaler INHALE .4 TIMES A DAY PRN Shortness Of Breath Or Wheezing Atorvastatin Calcium 40 mg 06/21/20 21:00 07/01/20 20:33 Atorvastatin Calcium 40 Mg Tablet PO 40 mg BEDTIME RAMON Administration Divalproex Sodium 375 mg 06/30/20 21:00 07/01/20 20:33 Divalproex Sodium 125 Mg Tablet. PO 375 mg BID RAMON Administration Donepezil HCl 5 mg 06/21/20 09:00 07/01/20 07:56 Donepezil Hcl 5 Mg Tablet PO 5 mg DAILY RAMON Administration Escitalopram Oxalate 10 mg 06/28/20 09:00 07/01/20 07:57 Escitalopram Oxalate 10 Mg Tablet PO 10 mg DAILY RAMON Administration Hydroxyzine HCl 50 mg 06/21/20 02:32 07/01/20 16:38 Hydroxyzine Hcl 50 Mg Tablet PO 50 mg Q4H PRN Administration Anxiety Hydroxyzine HCl 25 mg 06/25/20 17:15 06/29/20 23:08 Hydroxyzine Hcl 25 Mg Tablet PO 25 mg BEDTIME PRN Administration Anxiety Lisinopril 5 mg 06/21/20 09:00 07/01/20 07:56 Lisinopril 5 Mg Tablet PO 5 mg DAILY RAMON Administration Protocol Lorazepam 0.5 mg 06/27/20 09:49 07/01/20 16:38 Lorazepam 0.5 Mg Tablet PO 0.5 mg Q4H PRN Administration Anxiety Magnesium Hydroxide 30 ml 06/25/20 17:15 Milk Of Magnesia 30 Ml Oral.Susp PO DAILY PRN Constipation Melatonin 3 mg 06/21/20 21:00 07/01/20 20:34 Melatonin 3 Mg Tablet PO 3 mg BEDTIME RAMON Administration Mirtazapine 15 mg 06/27/20 21:00 07/01/20 20:34 Mirtazapine 7.5 Mg Tablet PO 15 mg BEDTIME RAMON Administration Omeprazole 20 mg 06/21/20 09:00 07/01/20 07:57 Omeprazole 20 Mg Capsule.Dr PO 20 mg DAILY RAMON Administration Risperidone 1 mg 06/21/20 01:41 06/29/20 18:19 Risperidone 1 Mg Tablet PO 1 mg Q6H PRN Administration Agitation Risperidone 2 mg 06/30/20 21:00 07/01/20 20:34 Risperidone 2 Mg Tablet PO 2 mg BID RAMON Administration Trazodone HCl 50 mg 06/25/20 17:15 07/01/20 00:05 Trazodone Hcl 50 Mg Tablet PO 50 mg BEDTIME PRN Administration Insomnia Allergies Allergies Allergy/AdvReac Type Severity Reaction Status Date / Time ciprofloxacin [CIPROFLOXACIN] AdvReac Intermediate DIARRHEA Verified 04/20/20 16:07 Assessment & Plan Assessment & Plan (1) Bipolar depression: Status: Acute Code(s): F31.9 - Bipolar disorder, unspecified Assessment and Plan: patient appears to be gradually improving check Depakote level maintain Risperdal patient does have healthcare proxy would benefit from VNA and ART HISTORY PROFESSOR increase Aricept syphilis HIV B12 folate TSH have all been negative patient is only 54 years old trying clarify neurological workup (2) Neurocognitive disorder: Status: Acute Code(s): R41.9 - Unspecified symptoms and signs involving cognitive functions and awareness Greater than 50% of the session was spent on counseling and/or coordination of care
[2020-07-02 06:00] VITALS: BP 107/64; PULSE 50; TEMP 36.5; O2SAT 95
[2020-07-02 07:00] VITALS: BMI 31.2
[2020-07-02 08:28] VITALS: BP 107/64; PULSE 60
[2020-07-02] MEDS: lisinopriL 5 MG TABLET PO (08:28)
[2020-07-02] MEDS: risperiDONE 2 MG TABLET PO ×2 (08:28→19:45)
[2020-07-02] MEDS: Donepezil HCl 5 MG TABLET PO (08:28)
[2020-07-02] MEDS: Escitalopram Oxalate 10 MG TABLET PO (08:29)
--- NOTE | 2020-07-02 08:29 | HO.PSYCHPN ---
Subjective Subjective Date of Service: 07/02/20 Reason For Visit: Bipolar DX SI Subjective Notes: Conditional Voluntary Interim History: Pt seen by neuro notes most likely frontal temp dementia Medication Compliance: Yes Side effects from medications: No Attending Groups: No Mental Status Exam Mental Status Exam Patient Appearance: Appropriate and Rigid Patient Orientation: Person Level of Consciousness: Awake Patient Behavior: Appropriate, Passive and Good Eye Contact (staring at provider ) Mood Description: Suspicious and Flat Affect Description: Withdrawn and Flat Patient Cognition Impaired: Yes Speech Pattern: Impoverished, Difficulty Finding Words, Monotone and Poor Articulation Memory Description: Remote Impaired, Immediate Impaired and Episodic Impaired Hallucinations: Auditory Delusions: Paranoid Ideation Thought Process: Disoriented and Confusion Thought Content: positive for Poverty of Content and positive for Suicidal Ideation (self harm behavoir ) Depressive Symptoms: Increased Anxiety, Increased Irritability, Hopelessness, Thoughts of /Suicide and Difficulty Concentrating Abnormal Motor Activity Signs and Symptoms: Restlessness Judgement: Poor Judgement and Insight: patient with ability periods of being come other periods of agitation and intense dysphoria Diagnostics Vital Signs (24Hr): Vital Signs - 24 hr 07/02/20 18:00 07/03/20 06:00 07/03/20 08:06 Temperature 98.6 F 97.7 F Pulse Rate 106 H 79 79 Blood Pressure 123/83 130/70 130/70 Pulse Oximetry 96 Body Mass Index 31.2 Labs Results: 06/20/20 13:36 06/26/20 08:25 Labs: Laboratory Results - last 48 hr 07/02/20 07/02/20 07:51 07:51 Ammonia 50 Valproic Acid 50.4 Medications Medications Current Medications Generic Name Dose Route Start Last Admin Trade Name Nimaq PRN Reason Stop Dose Admin Acetaminophen 650 mg 06/25/20 17:15 07/03/20 08:19 Acetaminophen 325 Mg Tablet PO 650 mg Q6H PRN Administration Headache/Pain Mild Scale (1-3) Al Hydroxide/Mg Hydroxide 30 ml 06/25/20 17:15 Magnesium Hydrox/Alum Hydrox 30 Ml Oral.Susp PO Q6H PRN Heartburn/Nausea Albuterol Sulfate 2 puff 06/21/20 01:41 Albuterol Sulfate 90 Mcg 8 Gm Inhaler INHALE .4 TIMES A DAY PRN Shortness Of Breath Or Wheezing Atorvastatin Calcium 40 mg 06/21/20 21:00 07/02/20 19:45 Atorvastatin Calcium 40 Mg Tablet PO 40 mg BEDTIME RAMON Administration Divalproex Sodium 375 mg 06/30/20 21:00 07/03/20 08:05 Divalproex Sodium 125 Mg Tablet. PO 375 mg BID RAMON Administration Donepezil HCl 5 mg 06/21/20 09:00 07/03/20 08:05 Donepezil Hcl 5 Mg Tablet PO 5 mg DAILY RAMON Administration Escitalopram Oxalate 10 mg 06/28/20 09:00 07/03/20 08:06 Escitalopram Oxalate 10 Mg Tablet PO 10 mg DAILY RAMON Administration Hydroxyzine HCl 50 mg 06/21/20 02:32 07/02/20 23:36 Hydroxyzine Hcl 50 Mg Tablet PO 50 mg Q4H PRN Administration Anxiety Hydroxyzine HCl 25 mg 06/25/20 17:15 07/03/20 00:51 Hydroxyzine Hcl 25 Mg Tablet PO 25 mg BEDTIME PRN Administration Anxiety Lisinopril 5 mg 06/21/20 09:00 07/03/20 08:06 Lisinopril 5 Mg Tablet PO 5 mg DAILY RAMON Administration Protocol Lorazepam 0.5 mg 07/03/20 08:27 Lorazepam 1 Mg Tablet PO Q4H PRN anxiety/restlessness Magnesium Hydroxide 30 ml 06/25/20 17:15 Milk Of Magnesia 30 Ml Oral.Susp PO DAILY PRN Constipation Melatonin 3 mg 06/21/20 21:00 07/02/20 19:45 Melatonin 3 Mg Tablet PO 3 mg BEDTIME RAMON Administration Mirtazapine 15 mg 06/27/20 21:00 07/02/20 19:45 Mirtazapine 7.5 Mg Tablet PO 15 mg BEDTIME RAMON Administration Omeprazole 20 mg 06/21/20 09:00 07/03/20 08:06 Omeprazole 20 Mg Capsule. PO 20 mg DAILY RAMON Administration Risperidone 1 mg 06/21/20 01:41 07/03/20 08:05 Risperidone 1 Mg Tablet PO 1 mg Q6H PRN Administration Agitation Risperidone 2 mg 06/30/20 21:00 07/03/20 08:06 Risperidone 2 Mg Tablet PO 2 mg BID RAMON Administration Trazodone HCl 50 mg 06/25/20 17:15 07/03/20 00:51 Trazodone Hcl 50 Mg Tablet PO 50 mg BEDTIME PRN Administration Insomnia Allergies Allergies Allergy/AdvReac Type Severity Reaction Status Date / Time ciprofloxacin [CIPROFLOXACIN] AdvReac Intermediate DIARRHEA Verified 04/20/20 16:07 Assessment & Plan Assessment & Plan (1) Neurocognitive disorder: Status: Acute Code(s): R41.9 - Unspecified symptoms and signs involving cognitive functions and awareness Assessment and Plan: cont aricept consider spect d/c planning (2) Bipolar depression: Status: Acute Code(s): F31.9 - Bipolar disorder, unspecified Assessment and Plan: risperadol depakote ck level Greater than 50% of the session was spent on counseling and/or coordination of care
[2020-07-02] MEDS: LORazepam 0.5 MG TABLET PO (08:30)
[2020-07-02 09:04] LABS: Ammonia 50 umol/L (13-55)
[2020-07-02 09:23] LABS: Valproate 50.4 mcg/mL (50.0-100.0)
[2020-07-02] MEDS: hydrOXYzine HCL 50 MG TABLET PO ×3 (11:32→23:36)
[2020-07-02] MEDS: risperiDONE 1 MG TABLET PO (11:32)
--- NOTE | 2020-07-02 15:11 | PM.NEUROCN ---
History of Present Illness Data of Consult Service Date: 07/02/20 Primary Care Provider: None Physician 54 years old man I was asked to see for possibility of dementia. Information was obtained from chart and previous records as he was not cooperative interview even with the help of an editor greeting card. He has been admitted on psychiatric floor multiple times with depression and psychotic symptoms. This time he was brought back for suicidal ideation. Review of Systems Review of Systems: He did not answer questions about review of system. PMFSH Past Medical History Medical History Alzheimer disease Alzheimer's dementia Anxiety Asthma Benign essential hypertension Bipolar depression BPH (benign prostatic hyperplasia) GERD (gastroesophageal reflux disease) High cholesterol Insomnia Lumbar degenerative disc disease Neurocognitive disorder Pure hypercholesterolemia Smoker Family History Family History Father Alzheimers disease Chronic mental illness Mother Hypertension Meningitis Sister Heart disease Hypertension Maternal Grandmother Hypertension Diabetes Surgical History Surgical History History of discectomy History of removal of cyst History of surgery Social History Social History Household Members: None Housing: Unknown / Unable to assess Do you presently have visiting nurse or other home services: No Alcohol intake: unknown Smoking Status: Never smoker Tobacco Type: Cigarette Cigarettes Per Day: 60 Smoked in Last 30 Days: No Patient Interested in Nicotine Replacement: No Second Hand Smoke Exposure: No Use of substances other than those prescribed or required for medical reasons: Refusing to respond Last Used Substance: Unknown Currently Displaying Signs/Symptoms of Drug Intoxication Withdrawal: No Any prior treatment program specific to substance use: Yes Have you been hit, kicked, punched, or otherwise hurt by someone within the past year? If so, by whom?: No Do you feel safe in your current relationship?: No Current Relationship Is there a partner from a previous relationship who is making you feel unsafe now?: No Are you made to feel afraid or neglected: No Spiritual Healthcare Practices: pt refusing to respond [facility] Healthcare Practices: pt refusing to respond Cultural Healthcare Practices: pt refusing to respond Advance Directives: No Advance Directives Information Provided: No Advance Directives on File: No Do you have thoughts of harming others: None Do you have a plan to hurt others: No Plan Recently lost weight without trying: No service: No Sexual orientation: Straight/Heterosexual Meds Allergies Allergy/AdvReac Type Severity Reaction Status Date / Time ciprofloxacin [CIPROFLOXACIN] AdvReac Intermediate DIARRHEA Verified 04/20/20 16:07 Home Medications Medication Instructions Recorded Confirmed Type albuterol sulfate 90 mcg/actuation 2 puff INHALATION .4 TIMES A DAY 04/20/20 06/20/20 History aerosol inhaler PRN g atorvastatin 40 mg PO BEDTIME 06/20/20 06/20/20 History divalproex 250 mg PO BID 06/20/20 06/20/20 History donepezil 5 mg PO DAILY 06/20/20 06/20/20 History escitalopram oxalate 5 mg PO DAILY 06/20/20 06/20/20 History hydroxyzine pamoate 50 mg PO Q4H PRN 06/20/20 06/20/20 History lisinopril 5 mg PO DAILY 06/20/20 06/20/20 History lorazepam 1 mg PO Q6H PRN 06/20/20 06/20/20 History melatonin 3 mg PO BEDTIME 06/20/20 06/20/20 History mirtazapine 7.5 mg PO BEDTIME 06/20/20 06/20/20 History pantoprazole 40 mg PO DAILY 06/20/20 06/20/20 History risperidone [Risperdal] 1 mg PO BID 06/20/20 06/20/20 History risperidone [Risperdal] 1 mg PO Q6H PRN 06/20/20 06/20/20 History Physical Exam Vital Signs: Vital Signs: Last Vital Signs Temp 97.7 F 07/02/20 06:00 Pulse 60 07/02/20 08:28 Resp 16 06/30/20 06:05 BP 107/64 07/02/20 08:28 Pulse Ox 95 07/02/20 06:00 Body Mass Index 31.2 He was alert and awake walked into the examination room with no obvious sign of distress. Facial expression blinking were somewhat diminished. There was no obvious tremor or significant bradykinesia. He spoke in [place]. With the help of an editor greeting card, I tried to get some information out of him but he was quite resistant and according to the editor greeting card started talking about something different like complaining of things on his feet. He was indicating to a minor old scar complaining of that scar. He did tell us that he was from [place]. When asked simple questions such as if he knew where he was, he refused to answer. When I tried to check his reflexes he resisted any physical contact. His face seems symmetrical. Results Labs CBC & Chem 7: 06/20/20 13:36 06/26/20 08:25 Microbiology Microbiology Results: Microbiology 06/21/20 Unknown Urine clean catch - Clean Catch Midstream Urine Culture - Final His previously done MRI and CT scan of brain were reviewed. They revealed moderate amount of cortical frontoparietal and mild temporal atrophy. Assessment and Plan (1) Neurocognitive disorder: Status: Acute Limited evaluation because of multiple reasons including language barrier, though I try to help that out with the help of an editor greeting card, and his refusal to be interviewed and examined. He was then I evaluated his situation and his previous imaging and labs. Overall clinical picture was suggestive of a chronic neuropsychiatric condition. His clinical picture does not fit with the diagnosis of Alzheimer dementia. Frontotemporal dementia is a possibility. His imaging does show frontotemporal degeneration. Overall management would still be same as there is no specific treatment for any of degenerative dementias.
[2020-07-02 18:00] VITALS: BP 123/83; PULSE 106; TEMP 37
[2020-07-02] MEDS: Mirtazapine 7.5 MG TABLET 15 MG PO (19:45)
[2020-07-02] MEDS: Atorvastatin Calcium 40 MG TABLET PO (19:45)
[2020-07-02] MEDS: Melatonin 3 MG TABLET PO (19:45)
[2020-07-03] MEDS: traZODone HCL 50 MG TABLET PO (00:51)
[2020-07-03] MEDS: hydrOXYzine HCL 25 MG TABLET PO ×2 (00:51→22:02)
[2020-07-03 06:00] VITALS: BP 130/70; PULSE 79; TEMP 36.5; O2SAT 96
[2020-07-03] MEDS: risperiDONE 1 MG TABLET PO (08:05)
[2020-07-03] MEDS: Donepezil HCl 5 MG TABLET PO (08:05)
[2020-07-03 08:06] VITALS: BP 130/70; PULSE 79
[2020-07-03] MEDS: lisinopriL 5 MG TABLET PO (08:06)
[2020-07-03] MEDS: Omeprazole 20 MG CAPSULE.DR PO (08:06)
[2020-07-03] MEDS: Escitalopram Oxalate 10 MG TABLET PO (08:06)
[2020-07-03] MEDS: risperiDONE 2 MG TABLET PO ×2 (08:06→20:04)
[2020-07-03] MEDS: Acetaminophen 325 MG TABLET 650 MG PO (08:19)
--- NOTE | 2020-07-03 08:44 | HO.PSYCHPN ---
Subjective Subjective Date of Service: 07/06/20 Reason For Visit: Bipolar DX SI Subjective Notes: Conditional Voluntary Interim History: pt with some improvement less labile Medication Compliance: Yes Side effects from medications: No Mental Status Exam Mental Status Exam Narrative: Patient Appearance: Appropriate Patient Orientation: Person Level of Consciousness: Awake Patient Behavior: Wandering Mood Description: Withdrawn Affect Description: Withdrawn and Blunted Ability to Follow Directions: Fair Speech Pattern: Impoverished Thought Process: Confusion Thought Content: positive for Disorganized Abnormal Motor Activity Signs and Symptoms: Restlessness Judgement: Poor Judgement and Insight: impaired Diagnostics Vital Signs (24Hr): Vital Signs - 24 hr 07/02/20 18:00 07/03/20 06:00 07/03/20 08:06 Temperature 98.6 F 97.7 F Pulse Rate 106 H 79 79 Blood Pressure 123/83 130/70 130/70 Pulse Oximetry 96 Body Mass Index 31.2 Labs Results: 06/20/20 13:36 06/26/20 08:25 Labs: Laboratory Results - last 48 hr 07/02/20 07/02/20 07:51 07:51 Ammonia 50 Valproic Acid 50.4 Medications Medications Current Medications Generic Name Dose Route Start Last Admin Trade Name Freq PRN Reason Stop Dose Admin Acetaminophen 650 mg 06/25/20 17:15 07/03/20 08:19 Acetaminophen 325 Mg Tablet PO 650 mg Q6H PRN Administration Headache/Pain Mild Scale (1-3) Al Hydroxide/Mg Hydroxide 30 ml 06/25/20 17:15 Magnesium Hydrox/Alum Hydrox 30 Ml Oral.Susp PO Q6H PRN Heartburn/Nausea Albuterol Sulfate 2 puff 06/21/20 01:41 Albuterol Sulfate 90 Mcg 8 Gm Inhaler INHALE .4 TIMES A DAY PRN Shortness Of Breath Or Wheezing Atorvastatin Calcium 40 mg 06/21/20 21:00 07/02/20 19:45 Atorvastatin Calcium 40 Mg Tablet PO 40 mg BEDTIME RAMON Administration Divalproex Sodium 375 mg 06/30/20 21:00 07/03/20 08:05 Divalproex Sodium 125 Mg Tablet.Dr PO 375 mg BID RAMON Administration Donepezil HCl 5 mg 06/21/20 09:00 07/03/20 08:05 Donepezil Hcl 5 Mg Tablet PO 5 mg DAILY RAMON Administration Escitalopram Oxalate 10 mg 06/28/20 09:00 07/03/20 08:06 Escitalopram Oxalate 10 Mg Tablet PO 10 mg DAILY RAMON Administration Hydroxyzine HCl 50 mg 06/21/20 02:32 07/02/20 23:36 Hydroxyzine Hcl 50 Mg Tablet PO 50 mg Q4H PRN Administration Anxiety Hydroxyzine HCl 25 mg 06/25/20 17:15 07/03/20 00:51 Hydroxyzine Hcl 25 Mg Tablet PO 25 mg BEDTIME PRN Administration Anxiety Lisinopril 5 mg 06/21/20 09:00 07/03/20 08:06 Lisinopril 5 Mg Tablet PO 5 mg DAILY RAMON Administration Protocol Lorazepam 0.5 mg 07/03/20 08:31 Lorazepam 0.5 Mg Tablet PO Q4H PRN anxiety/restlessness Magnesium Hydroxide 30 ml 06/25/20 17:15 Milk Of Magnesia 30 Ml Oral.Susp PO DAILY PRN Constipation Melatonin 3 mg 06/21/20 21:00 07/02/20 19:45 Melatonin 3 Mg Tablet PO 3 mg BEDTIME RAMON Administration Mirtazapine 15 mg 06/27/20 21:00 07/02/20 19:45 Mirtazapine 7.5 Mg Tablet PO 15 mg BEDTIME RAMON Administration Omeprazole 20 mg 06/21/20 09:00 07/03/20 08:06 Omeprazole 20 Mg Capsule.Dr PO 20 mg DAILY RAMON Administration Risperidone 1 mg 06/21/20 01:41 07/03/20 08:05 Risperidone 1 Mg Tablet PO 1 mg Q6H PRN Administration Agitation Risperidone 2 mg 06/30/20 21:00 07/03/20 08:06 Risperidone 2 Mg Tablet PO 2 mg BID RAMON Administration Trazodone HCl 50 mg 06/25/20 17:15 07/03/20 00:51 Trazodone Hcl 50 Mg Tablet PO 50 mg BEDTIME PRN Administration Insomnia Allergies Allergies Allergy/AdvReac Type Severity Reaction Status Date / Time ciprofloxacin [CIPROFLOXACIN] AdvReac Intermediate DIARRHEA Verified 04/20/20 16:07 Assessment & Plan Assessment & Plan (1) Neurocognitive disorder: Status: Acute Code(s): R41.9 - Unspecified symptoms and signs involving cognitive functions and awareness (2) Benign essential hypertension: Status: Acute Code(s): I10 - Essential (primary) hypertension (3) Bipolar depression: Status: Acute Code(s): F31.9 - Bipolar disorder, unspecified Assessment and Plan: cont depakopte risp needs support home for cognitive dx Greater than 50% of the session was spent on counseling and/or coordination of care
[2020-07-03] MEDS: LORazepam 0.5 MG TABLET PO ×3 (09:19→22:02)
[2020-07-03] MEDS: hydrOXYzine HCL 50 MG TABLET PO (16:18)
[2020-07-03 18:00] VITALS: BP 116/70; PULSE 85; TEMP 36.9
[2020-07-03] MEDS: Melatonin 3 MG TABLET PO (20:04)
[2020-07-03] MEDS: Mirtazapine 7.5 MG TABLET 15 MG PO (20:04)
[2020-07-03] MEDS: Atorvastatin Calcium 40 MG TABLET PO (20:04)
[2020-07-04 06:00] VITALS: BP 96/62; PULSE 53; TEMP 36.6
[2020-07-04 08:49] VITALS: BP 111/70; PULSE 62
[2020-07-04] MEDS: lisinopriL 5 MG TABLET PO (08:49)
[2020-07-04] MEDS: Omeprazole 20 MG CAPSULE.DR PO (08:49)
[2020-07-04] MEDS: Donepezil HCl 5 MG TABLET PO (08:49)
[2020-07-04] MEDS: LORazepam 0.5 MG TABLET PO ×2 (08:49→15:22)
[2020-07-04] MEDS: risperiDONE 2 MG TABLET PO ×2 (08:49→20:07)
[2020-07-04] MEDS: Escitalopram Oxalate 10 MG TABLET PO (08:50)
[2020-07-04] MEDS: hydrOXYzine HCL 50 MG TABLET PO ×2 (10:55→18:45)
[2020-07-04] MEDS: risperiDONE 1 MG TABLET PO (13:34)
[2020-07-04 18:00] VITALS: BP 105/59; PULSE 84; TEMP 36.8
--- NOTE | 2020-07-04 18:44 | HO.PSYCHPN ---
Subjective Subjective Date of Service: 07/04/20 Reason For Visit: Bipolar DX SI Interim History: Pt Seen; chart reviewed and case discussed with nursing Vitals reviewed: bradycardia Lab reviewed Pt disorganized in speech and thought He says he's good but otherwise, muttering to himself; then pt knelt on floor and slapped his head a few times with his hand. He was able to be redirected but remained disorganized. Medication Compliance: Yes Mental Status Exam Mental Status Exam Patient Appearance: Appropriate Patient Orientation: Person Level of Consciousness: Awake Patient Behavior: Wandering Mood Description: Withdrawn Affect Description: Withdrawn and Blunted Ability to Follow Directions: Fair Speech Pattern: Impoverished Thought Process: Confusion Thought Content: positive for Disorganized Abnormal Motor Activity Signs and Symptoms: Restlessness Judgement: Poor Judgement and Insight: impaired Diagnostics Vital Signs (24Hr): Vital Signs - 24 hr 07/04/20 06:00 07/04/20 08:49 Temperature 97.8 F Pulse Rate 53 62 Blood Pressure 96/62 111/70 Body Mass Index 31.2 Labs Results: 06/20/20 13:36 06/26/20 08:25 Medications Medications Current Medications Generic Name Dose Route Start Last Admin Trade Name Freq PRN Reason Stop Dose Admin Acetaminophen 650 mg 06/25/20 17:15 07/03/20 08:19 Acetaminophen 325 Mg Tablet PO 650 mg Q6H PRN Administration Headache/Pain Mild Scale (1-3) Al Hydroxide/Mg Hydroxide 30 ml 06/25/20 17:15 Magnesium Hydrox/Alum Hydrox 30 Ml Oral.Susp PO Q6H PRN Heartburn/Nausea Albuterol Sulfate 2 puff 06/21/20 01:41 Albuterol Sulfate 90 Mcg 8 Gm Inhaler INHALE .4 TIMES A DAY PRN Shortness Of Breath Or Wheezing Atorvastatin Calcium 40 mg 06/21/20 21:00 07/03/20 20:04 Atorvastatin Calcium 40 Mg Tablet PO 40 mg BEDTIME RAMON Administration Divalproex Sodium 375 mg 06/30/20 21:00 07/04/20 08:49 Divalproex Sodium 125 Mg Tablet.Dr PO 375 mg BID RAMON Administration Donepezil HCl 5 mg 06/21/20 09:00 07/04/20 08:49 Donepezil Hcl 5 Mg Tablet PO 5 mg DAILY RAMON Administration Escitalopram Oxalate 10 mg 06/28/20 09:00 07/04/20 08:50 Escitalopram Oxalate 10 Mg Tablet PO 10 mg DAILY RAMON Administration Hydroxyzine HCl 50 mg 06/21/20 02:32 07/04/20 10:55 Hydroxyzine Hcl 50 Mg Tablet PO 50 mg Q4H PRN Administration Anxiety Hydroxyzine HCl 25 mg 06/25/20 17:15 07/03/20 22:02 Hydroxyzine Hcl 25 Mg Tablet PO 25 mg BEDTIME PRN Administration Anxiety Lisinopril 5 mg 06/21/20 09:00 07/04/20 08:49 Lisinopril 5 Mg Tablet PO 5 mg DAILY RAMON Administration Protocol Lorazepam 0.5 mg 07/03/20 08:31 07/04/20 15:22 Lorazepam 0.5 Mg Tablet PO 0.5 mg Q4H PRN Administration anxiety/restlessness Magnesium Hydroxide 30 ml 06/25/20 17:15 Milk Of Magnesia 30 Ml Oral.Susp PO DAILY PRN Constipation Melatonin 3 mg 06/21/20 21:00 07/03/20 20:04 Melatonin 3 Mg Tablet PO 3 mg BEDTIME RAMON Administration Mirtazapine 15 mg 06/27/20 21:00 07/03/20 20:04 Mirtazapine 7.5 Mg Tablet PO 15 mg BEDTIME RAMON Administration Omeprazole 20 mg 06/21/20 09:00 07/04/20 08:49 Omeprazole 20 Mg Capsule.Dr PO 20 mg DAILY RAMON Administration Risperidone 1 mg 06/21/20 01:41 07/04/20 13:34 Risperidone 1 Mg Tablet PO 1 mg Q6H PRN Administration Agitation Risperidone 2 mg 06/30/20 21:00 07/04/20 08:49 Risperidone 2 Mg Tablet PO 2 mg BID RAMON Administration Trazodone HCl 50 mg 06/25/20 17:15 07/03/20 00:51 Trazodone Hcl 50 Mg Tablet PO 50 mg BEDTIME PRN Administration Insomnia Allergies Allergies Allergy/AdvReac Type Severity Reaction Status Date / Time ciprofloxacin [CIPROFLOXACIN] AdvReac Intermediate DIARRHEA Verified 04/20/20 16:07 Assessment & Plan Impression: pt psychotic staff reports pt has dementia DX: Psychotic disorder, unspecified dementia (reportedly) r/o Lewy body dementia (given psychotic symptoms and young age) Greater than 50% of the session was spent on counseling and/or coordination of care
[2020-07-04] MEDS: Melatonin 3 MG TABLET PO (20:07)
[2020-07-04] MEDS: Atorvastatin Calcium 40 MG TABLET PO (20:07)
[2020-07-04] MEDS: Mirtazapine 7.5 MG TABLET 15 MG PO (20:07)
[2020-07-04] MEDS: hydrOXYzine HCL 25 MG TABLET PO (23:55)
[2020-07-04] MEDS: traZODone HCL 50 MG TABLET PO (23:55)
[2020-07-05 06:20] VITALS: BP 112/67; PULSE 59; RESP 16; TEMP 36; O2SAT 97
[2020-07-05 08:13] VITALS: BP 112/67; PULSE 59
[2020-07-05] MEDS: risperiDONE 2 MG TABLET PO ×2 (08:13→20:03)
[2020-07-05] MEDS: lisinopriL 5 MG TABLET PO (08:13)
[2020-07-05] MEDS: LORazepam 0.5 MG TABLET PO ×2 (08:13→18:23)
[2020-07-05] MEDS: Escitalopram Oxalate 10 MG TABLET PO (08:13)
[2020-07-05] MEDS: Omeprazole 20 MG CAPSULE.DR PO (08:13)
[2020-07-05] MEDS: Donepezil HCl 5 MG TABLET PO (08:13)
[2020-07-05] MEDS: hydrOXYzine HCL 50 MG TABLET PO ×2 (09:28→18:24)
[2020-07-05] MEDS: risperiDONE 1 MG TABLET PO (11:50)
--- NOTE | 2020-07-05 14:17 | P.PNPSI_ITS ---
Subjective Subjective Date of Service: 07/05/20 Reason For Visit: Bipolar DX SI Interim History: Pt Seen; chart reviewed and case discussed with nursing Vitals reviewed: bradycardic Lab reviewed: no new labs Pt remains disorganized in speech and thought; he said there is a devil in the kitchen but when asked follow up question, pt said lunch and other unrelated words. He continues muttering to himself, wandering milue aimlessly. 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 like possible right handed pill rolling tremor Medication Compliance: Yes Mental Status Exam Mental Status Exam Narrative: Patient Appearance: Appropriate Patient Orientation: Person Level of Consciousness: Awake Patient Behavior: Wandering Mood Description: Withdrawn Affect Description: Withdrawn and Blunted Ability to Follow Directions: Fair Speech Pattern: Impoverished Thought Process: Confusion Thought Content: positive for Disorganized Abnormal Motor Activity Signs and Symptoms: Restlessness Judgement: Poor Judgement and Insight: impaired Diagnostics Vital Signs (24Hr): Vital Signs - 24 hr 07/04/20 18:00 07/05/20 06:20 07/05/20 08:13 Temperature 98.3 F 96.8 F Pulse Rate 84 59 59 Respiratory Rate 16 Blood Pressure 105/59 L 112/67 112/67 Pulse Oximetry 97 Body Mass Index 31.2 Labs Results: 06/20/20 13:36 06/26/20 08:25 Medications Medications Current Medications Generic Name Dose Route Start Last Admin Trade Name Nimaq PRN Reason Stop Dose Admin Acetaminophen 650 mg 06/25/20 17:15 07/03/20 08:19 Acetaminophen 325 Mg Tablet PO 650 mg Q6H PRN Administration Headache/Pain Mild Scale (1-3) Al Hydroxide/Mg Hydroxide 30 ml 06/25/20 17:15 Magnesium Hydrox/Alum Hydrox 30 Ml Oral.Susp PO Q6H PRN Heartburn/Nausea Albuterol Sulfate 2 puff 06/21/20 01:41 Albuterol Sulfate 90 Mcg 8 Gm Inhaler INHALE .4 TIMES A DAY PRN Shortness Of Breath Or Wheezing Atorvastatin Calcium 40 mg 06/21/20 21:00 07/04/20 20:07 Atorvastatin Calcium 40 Mg Tablet PO 40 mg BEDTIME RAMON Administration Divalproex Sodium 375 mg 06/30/20 21:00 07/05/20 08:13 Divalproex Sodium 125 Mg Tablet. PO 375 mg BID RAMON Administration Donepezil HCl 5 mg 06/21/20 09:00 07/05/20 08:13 Donepezil Hcl 5 Mg Tablet PO 5 mg DAILY RAMON Administration Escitalopram Oxalate 10 mg 06/28/20 09:00 07/05/20 08:13 Escitalopram Oxalate 10 Mg Tablet PO 10 mg DAILY RAMON Administration Hydroxyzine HCl 50 mg 06/21/20 02:32 07/05/20 09:28 Hydroxyzine Hcl 50 Mg Tablet PO 50 mg Q4H PRN Administration Anxiety Hydroxyzine HCl 25 mg 06/25/20 17:15 07/04/20 23:55 Hydroxyzine Hcl 25 Mg Tablet PO 25 mg BEDTIME PRN Administration Anxiety Lisinopril 5 mg 06/21/20 09:00 07/05/20 08:13 Lisinopril 5 Mg Tablet PO 5 mg DAILY RAMON Administration Protocol Lorazepam 0.5 mg 07/03/20 08:31 07/05/20 08:13 Lorazepam 0.5 Mg Tablet PO 0.5 mg Q4H PRN Administration anxiety/restlessness Magnesium Hydroxide 30 ml 06/25/20 17:15 Milk Of Magnesia 30 Ml Oral.Susp PO DAILY PRN Constipation Melatonin 3 mg 06/21/20 21:00 07/04/20 20:07 Melatonin 3 Mg Tablet PO 3 mg BEDTIME RAMON Administration Mirtazapine 15 mg 06/27/20 21:00 07/04/20 20:07 Mirtazapine 7.5 Mg Tablet PO 15 mg BEDTIME RAMON Administration Omeprazole 20 mg 06/21/20 09:00 07/05/20 08:13 Omeprazole 20 Mg Capsule.Dr PO 20 mg DAILY RAMON Administration Risperidone 1 mg 06/21/20 01:41 07/05/20 11:50 Risperidone 1 Mg Tablet PO 1 mg Q6H PRN Administration Agitation Risperidone 2 mg 06/30/20 21:00 07/05/20 08:13 Risperidone 2 Mg Tablet PO 2 mg BID RAMON Administration Trazodone HCl 50 mg 06/25/20 17:15 07/04/20 23:55 Trazodone Hcl 50 Mg Tablet PO 50 mg BEDTIME PRN Administration Insomnia Allergies Allergies Allergy/AdvReac Type Severity Reaction Status Date / Time ciprofloxacin [CIPROFLOXACIN] AdvReac Intermediate DIARRHEA Verified 04/20/20 16:07 Assessment & Plan Impression: pt psychotic staff reports pt has dementia Pt has what looks like possible right handed pill rolling tremor DX: Psychotic disorder, unspecified dementia (reportedly) r/o Lewy body dementia (given psychotic symptoms and young age) Greater than 50% of the session was spent on counseling and/or coordination of care
[2020-07-05 18:00] VITALS: BP 110/70; PULSE 97; TEMP 36.8
[2020-07-05] MEDS: Melatonin 3 MG TABLET PO (20:03)
[2020-07-05] MEDS: Mirtazapine 7.5 MG TABLET 15 MG PO (20:03)
[2020-07-05] MEDS: Atorvastatin Calcium 40 MG TABLET PO (20:04)
[2020-07-06] MEDS: hydrOXYzine HCL 50 MG TABLET PO ×3 (00:05→15:05)
[2020-07-06] MEDS: traZODone HCL 50 MG TABLET PO (00:05)
[2020-07-06] MEDS: LORazepam 0.5 MG TABLET PO ×3 (00:05→15:05)
[2020-07-06 06:40] VITALS: BP 102/76; PULSE 75; RESP 18; TEMP 36.9; O2SAT 98
[2020-07-06 09:15] VITALS: BP 102/76; PULSE 75
[2020-07-06] MEDS: Escitalopram Oxalate 10 MG TABLET PO (09:15)
[2020-07-06] MEDS: risperiDONE 2 MG TABLET PO ×2 (09:15→20:24)
[2020-07-06] MEDS: Omeprazole 20 MG CAPSULE.DR PO (09:15)
[2020-07-06] MEDS: lisinopriL 5 MG TABLET PO (09:15)
[2020-07-06] MEDS: Donepezil HCl 5 MG TABLET PO (09:15)
[2020-07-06 18:00] VITALS: BP 91/55; PULSE 73; TEMP 36.8
[2020-07-06] MEDS: Mirtazapine 7.5 MG TABLET 15 MG PO (20:24)
[2020-07-06] MEDS: Melatonin 3 MG TABLET PO (20:24)
[2020-07-06] MEDS: Atorvastatin Calcium 40 MG TABLET PO (20:24)
--- NOTE | 2020-07-06 22:05 | HO.PSYCHPN ---
Subjective Subjective Date of Service: 07/06/20 Reason For Visit: Bipolar DX SI Subjective Notes: Conditional Voluntary Interim History: pt started on mirtazapine some improvement noted has significant difficulty with language c/w frontal temporal dementia seen with interpeter still has paranoid concerns Medication Compliance: Yes Mental Status Exam Mental Status Exam Narrative: Patient Appearance: Appropriate Patient Orientation: Person Level of Consciousness: Awake Patient Behavior: Wandering Mood Description: Withdrawn Affect Description: Withdrawn and Blunted Ability to Follow Directions: Fair Speech Pattern: Impoverished Thought Process: Confusion Thought Content: positive for Disorganized Abnormal Motor Activity Signs and Symptoms: Restlessness Judgement: Poor Judgement and Insight: impaired Mood Description: Depressed, Blunted, Flat and Nervous Diagnostics Vital Signs (24Hr): Vital Signs - 24 hr 07/06/20 06:40 07/06/20 09:15 07/06/20 18:00 Temperature 98.4 F 98.2 F Pulse Rate 75 75 73 Respiratory Rate 18 Blood Pressure 102/76 102/76 91/55 L Pulse Oximetry 98 Body Mass Index 31.2 Labs Results: 06/20/20 13:36 06/26/20 08:25 Medications Medications Current Medications Generic Name Dose Route Start Last Admin Trade Name Freq PRN Reason Stop Dose Admin Acetaminophen 650 mg 06/25/20 17:15 07/03/20 08:19 Acetaminophen 325 Mg Tablet PO 650 mg Q6H PRN Administration Headache/Pain Mild Scale (1-3) Al Hydroxide/Mg Hydroxide 30 ml 06/25/20 17:15 Magnesium Hydrox/Alum Hydrox 30 Ml Oral.Susp PO Q6H PRN Heartburn/Nausea Albuterol Sulfate 2 puff 06/21/20 01:41 Albuterol Sulfate 90 Mcg 8 Gm Inhaler INHALE .4 TIMES A DAY PRN Shortness Of Breath Or Wheezing Atorvastatin Calcium 40 mg 06/21/20 21:00 07/06/20 20:24 Atorvastatin Calcium 40 Mg Tablet PO 40 mg BEDTIME RAMON Administration Divalproex Sodium 375 mg 06/30/20 21:00 07/06/20 20:24 Divalproex Sodium 125 Mg Tablet.Dr PO 375 mg BID RAMON Administration Donepezil HCl 5 mg 06/21/20 09:00 07/06/20 09:15 Donepezil Hcl 5 Mg Tablet PO 5 mg DAILY RAMON Administration Escitalopram Oxalate 10 mg 06/28/20 09:00 07/06/20 09:15 Escitalopram Oxalate 10 Mg Tablet PO 10 mg DAILY RAMON Administration Hydroxyzine HCl 50 mg 06/21/20 02:32 07/06/20 15:05 Hydroxyzine Hcl 50 Mg Tablet PO 50 mg Q4H PRN Administration Anxiety Hydroxyzine HCl 25 mg 06/25/20 17:15 07/04/20 23:55 Hydroxyzine Hcl 25 Mg Tablet PO 25 mg BEDTIME PRN Administration Anxiety Lisinopril 5 mg 06/21/20 09:00 07/06/20 09:15 Lisinopril 5 Mg Tablet PO 5 mg DAILY RAMON Administration Protocol Lorazepam 0.5 mg 07/03/20 08:31 07/06/20 15:05 Lorazepam 0.5 Mg Tablet PO 0.5 mg Q4H PRN Administration anxiety/restlessness Magnesium Hydroxide 30 ml 06/25/20 17:15 Milk Of Magnesia 30 Ml Oral.Susp PO DAILY PRN Constipation Melatonin 3 mg 06/21/20 21:00 07/06/20 20:24 Melatonin 3 Mg Tablet PO 3 mg BEDTIME RAMON Administration Mirtazapine 15 mg 06/27/20 21:00 07/06/20 20:24 Mirtazapine 7.5 Mg Tablet PO 15 mg BEDTIME RAMON Administration Omeprazole 20 mg 06/21/20 09:00 07/06/20 09:15 Omeprazole 20 Mg Capsule.Dr PO 20 mg DAILY RAMON Administration Risperidone 1 mg 06/21/20 01:41 07/05/20 11:50 Risperidone 1 Mg Tablet PO 1 mg Q6H PRN Administration Agitation Risperidone 2 mg 06/30/20 21:00 07/06/20 20:24 Risperidone 2 Mg Tablet PO 2 mg BID RAMON Administration Trazodone HCl 50 mg 06/25/20 17:15 07/06/20 00:05 Trazodone Hcl 50 Mg Tablet PO 50 mg BEDTIME PRN Administration Insomnia Allergies Allergies Allergy/AdvReac Type Severity Reaction Status Date / Time ciprofloxacin [CIPROFLOXACIN] AdvReac Intermediate DIARRHEA Verified 04/20/20 16:07 Assessment & Plan Assessment & Plan (1) Neurocognitive disorder: Status: Acute Code(s): R41.9 - Unspecified symptoms and signs involving cognitive functions and awareness Assessment and Plan: difficulty with language ft dementia illness (2) Bipolar depression: Status: Acute Code(s): F31.9 - Bipolar disorder, unspecified Assessment and Plan: mirtazapine risperadol d/c planning Greater than 50% of the session was spent on counseling and/or coordination of care
[2020-07-07] MEDS: LORazepam 0.5 MG TABLET PO ×3 (00:10→16:57)
[2020-07-07] MEDS: traZODone HCL 50 MG TABLET PO (00:10)
[2020-07-07] MEDS: risperiDONE 1 MG TABLET PO ×2 (00:10→11:18)
[2020-07-07 06:05] VITALS: BP 101/65; PULSE 51; RESP 18; TEMP 36.3; O2SAT 99
[2020-07-07 08:47] VITALS: BP 116/64; PULSE 63
[2020-07-07] MEDS: lisinopriL 5 MG TABLET PO (08:47)
[2020-07-07] MEDS: Escitalopram Oxalate 10 MG TABLET PO (08:47)
[2020-07-07] MEDS: risperiDONE 2 MG TABLET PO ×2 (08:47→21:55)
[2020-07-07] MEDS: Donepezil HCl 5 MG TABLET PO (08:47)
[2020-07-07] MEDS: Omeprazole 20 MG CAPSULE.DR PO (08:47)
[2020-07-07] MEDS: hydrOXYzine HCL 50 MG TABLET PO (16:57)
[2020-07-07 18:00] VITALS: BP 116/67; PULSE 97; TEMP 36.6
[2020-07-07] MEDS: Atorvastatin Calcium 40 MG TABLET PO (21:54)
[2020-07-07] MEDS: Mirtazapine 7.5 MG TABLET 15 MG PO (21:55)
[2020-07-07] MEDS: Melatonin 3 MG TABLET PO (21:55)
--- NOTE | 2020-07-07 21:58 | HO.PSYCHPN ---
Subjective Subjective Date of Service: 07/07/20 Reason For Visit: Bipolar DX SI Subjective Notes: Conditional Voluntary Interim History: patient difficult to meaningfully engage pacing gradually stabilizing no longer complaining about the devil Medication Compliance: Yes Mental Status Exam Mental Status Exam Narrative: Patient Appearance: Appropriate Patient Orientation: Person Level of Consciousness: Awake Patient Behavior: Wandering Mood Description: Withdrawn Affect Description: Withdrawn and Blunted Ability to Follow Directions: Fair Speech Pattern: Impoverished Thought Process: Confusion Thought Content: positive for Disorganized Abnormal Motor Activity Signs and Symptoms: Restlessness Judgement: Poor Judgement and Insight: impaired Mood Description: Depressed, Blunted, Flat and Nervous Diagnostics Vital Signs (24Hr): Vital Signs - 24 hr 07/07/20 06:05 07/07/20 08:47 07/07/20 18:00 Temperature 97.3 F 97.8 F Pulse Rate 51 63 97 Respiratory Rate 18 Blood Pressure 101/65 116/64 116/67 Pulse Oximetry 99 Body Mass Index 31.2 Labs Results: 06/20/20 13:36 06/26/20 08:25 Medications Medications Current Medications Generic Name Dose Route Start Last Admin Trade Name Freq PRN Reason Stop Dose Admin Acetaminophen 650 mg 06/25/20 17:15 07/03/20 08:19 Acetaminophen 325 Mg Tablet PO 650 mg Q6H PRN Administration Headache/Pain Mild Scale (1-3) Al Hydroxide/Mg Hydroxide 30 ml 06/25/20 17:15 Magnesium Hydrox/Alum Hydrox 30 Ml Oral.Susp PO Q6H PRN Heartburn/Nausea Albuterol Sulfate 2 puff 06/21/20 01:41 Albuterol Sulfate 90 Mcg 8 Gm Inhaler INHALE .4 TIMES A DAY PRN Shortness Of Breath Or Wheezing Atorvastatin Calcium 40 mg 06/21/20 21:00 07/06/20 20:24 Atorvastatin Calcium 40 Mg Tablet PO 40 mg BEDTIME RAMON Administration Divalproex Sodium 375 mg 06/30/20 21:00 07/07/20 08:47 Divalproex Sodium 125 Mg Tablet.Dr PO 375 mg BID RAMON Administration Donepezil HCl 5 mg 06/21/20 09:00 07/07/20 08:47 Donepezil Hcl 5 Mg Tablet PO 5 mg DAILY RAMON Administration Escitalopram Oxalate 10 mg 06/28/20 09:00 07/07/20 08:47 Escitalopram Oxalate 10 Mg Tablet PO 10 mg DAILY RAMON Administration Hydroxyzine HCl 50 mg 06/21/20 02:32 07/07/20 16:57 Hydroxyzine Hcl 50 Mg Tablet PO 50 mg Q4H PRN Administration Anxiety Hydroxyzine HCl 25 mg 06/25/20 17:15 07/04/20 23:55 Hydroxyzine Hcl 25 Mg Tablet PO 25 mg BEDTIME PRN Administration Anxiety Lisinopril 5 mg 06/21/20 09:00 07/07/20 08:47 Lisinopril 5 Mg Tablet PO 5 mg DAILY RAMON Administration Protocol Lorazepam 0.5 mg 07/03/20 08:31 07/07/20 16:57 Lorazepam 0.5 Mg Tablet PO 0.5 mg Q4H PRN Administration anxiety/restlessness Magnesium Hydroxide 30 ml 06/25/20 17:15 Milk Of Magnesia 30 Ml Oral.Susp PO DAILY PRN Constipation Melatonin 3 mg 06/21/20 21:00 07/06/20 20:24 Melatonin 3 Mg Tablet PO 3 mg BEDTIME RAMON Administration Mirtazapine 15 mg 06/27/20 21:00 07/06/20 20:24 Mirtazapine 7.5 Mg Tablet PO 15 mg BEDTIME RAMON Administration Omeprazole 20 mg 06/21/20 09:00 07/07/20 08:47 Omeprazole 20 Mg Capsule.Dr PO 20 mg DAILY RAMON Administration Risperidone 1 mg 06/21/20 01:41 07/07/20 11:18 Risperidone 1 Mg Tablet PO 1 mg Q6H PRN Administration Agitation Risperidone 2 mg 06/30/20 21:00 07/07/20 08:47 Risperidone 2 Mg Tablet PO 2 mg BID RAMON Administration Trazodone HCl 50 mg 06/25/20 17:15 07/07/20 00:10 Trazodone Hcl 50 Mg Tablet PO 50 mg BEDTIME PRN Administration Insomnia Allergies Allergies Allergy/AdvReac Type Severity Reaction Status Date / Time ciprofloxacin [CIPROFLOXACIN] AdvReac Intermediate DIARRHEA Verified 04/20/20 16:07 Assessment & Plan Assessment & Plan (1) Bipolar depression: Status: Acute Code(s): F31.9 - Bipolar disorder, unspecified (2) Alzheimer's dementia: Status: Ruled-out Code(s): G30.9 - Alzheimer's disease, unspecified; F02.80 - Dementia in other diseases classified elsewhere without behavioral disturbance (3) Neurocognitive disorder: Status: Acute Code(s): R41.9 - Unspecified symptoms and signs involving cognitive functions and awareness Assessment and Plan: appears to be frontal temporal dementia no clear treatment no further recommendations by Neurology continue Depakote Risperdal mirtazapine discharge planning Greater than 50% of the session was spent on counseling and/or coordination of care
[2020-07-08 06:00] VITALS: BP 113/67; PULSE 80; RESP 18; TEMP 36.4; O2SAT 94
[2020-07-08] MEDS: hydrOXYzine HCL 50 MG TABLET PO ×2 (06:28→16:43)
[2020-07-08] MEDS: LORazepam 0.5 MG TABLET PO (06:28)
[2020-07-08 08:29] VITALS: BP 113/67; PULSE 80
[2020-07-08] MEDS: lisinopriL 5 MG TABLET PO (08:29)
[2020-07-08] MEDS: risperiDONE 2 MG TABLET PO ×2 (08:29→20:58)
[2020-07-08] MEDS: Escitalopram Oxalate 10 MG TABLET PO (08:29)
[2020-07-08] MEDS: Omeprazole 20 MG CAPSULE.DR PO (08:29)
[2020-07-08] MEDS: Donepezil HCl 5 MG TABLET PO (08:29)
[2020-07-08] MEDS: risperiDONE 1 MG TABLET PO (14:32)
[2020-07-08 18:00] VITALS: BP 120/69; PULSE 81; TEMP 36.6
[2020-07-08] MEDS: Mirtazapine 7.5 MG TABLET 15 MG PO (20:59)
[2020-07-08] MEDS: Melatonin 3 MG TABLET PO (20:59)
[2020-07-08] MEDS: Atorvastatin Calcium 40 MG TABLET PO (21:01)
--- NOTE | 2020-07-08 22:48 | HO.PSYCHPN ---
Subjective Subjective Date of Service: 07/09/20 Reason For Visit: Bipolar DX SI Subjective Notes: Conditional Voluntary Interim History: Pt has been flat less behavoirallydisturbed remains confused less fagan no active si Medication Compliance: Yes Side effects from medications: No Attending Groups: No Mental Status Exam Mental Status Exam Patient Appearance: Appropriate Patient Orientation: Person Level of Consciousness: Awake Patient Behavior: Appropriate Mood Description: Depressed and Flat Patient Cognition Impaired: Yes Ability to Follow Directions: Fair Speech Pattern: Impoverished Thought Process: Disoriented and Incoherent Judgement: Fair Diagnostics Vital Signs (24Hr): Vital Signs - 24 hr 07/08/20 06:00 07/08/20 08:29 07/08/20 18:00 Temperature 97.5 F 97.8 F Pulse Rate 80 80 81 Respiratory Rate 18 Blood Pressure 113/67 113/67 120/69 Pulse Oximetry 94 Body Mass Index 31.2 Labs Results: 06/20/20 13:36 06/26/20 08:25 Medications Medications Current Medications Generic Name Dose Route Start Last Admin Trade Name Nimaq PRN Reason Stop Dose Admin Acetaminophen 650 mg 06/25/20 17:15 07/03/20 08:19 Acetaminophen 325 Mg Tablet PO 650 mg Q6H PRN Administration Headache/Pain Mild Scale (1-3) Al Hydroxide/Mg Hydroxide 30 ml 06/25/20 17:15 Magnesium Hydrox/Alum Hydrox 30 Ml Oral.Susp PO Q6H PRN Heartburn/Nausea Albuterol Sulfate 2 puff 06/21/20 01:41 Albuterol Sulfate 90 Mcg 8 Gm Inhaler INHALE .4 TIMES A DAY PRN Shortness Of Breath Or Wheezing Atorvastatin Calcium 40 mg 06/21/20 21:00 07/08/20 21:01 Atorvastatin Calcium 40 Mg Tablet PO 40 mg BEDTIME RAMON Administration Divalproex Sodium 375 mg 06/30/20 21:00 07/08/20 20:58 Divalproex Sodium 125 Mg Tablet.Dr PO 375 mg BID RAMON Administration Donepezil HCl 5 mg 06/21/20 09:00 07/08/20 08:29 Donepezil Hcl 5 Mg Tablet PO 5 mg DAILY RAMON Administration Escitalopram Oxalate 10 mg 06/28/20 09:00 07/08/20 08:29 Escitalopram Oxalate 10 Mg Tablet PO 10 mg DAILY RAMON Administration Hydroxyzine HCl 50 mg 06/21/20 02:32 07/08/20 16:43 Hydroxyzine Hcl 50 Mg Tablet PO 50 mg Q4H PRN Administration Anxiety Hydroxyzine HCl 25 mg 06/25/20 17:15 07/04/20 23:55 Hydroxyzine Hcl 25 Mg Tablet PO 25 mg BEDTIME PRN Administration Anxiety Lisinopril 5 mg 06/21/20 09:00 07/08/20 08:29 Lisinopril 5 Mg Tablet PO 5 mg DAILY RAMON Administration Protocol Magnesium Hydroxide 30 ml 06/25/20 17:15 Milk Of Magnesia 30 Ml Oral.Susp PO DAILY PRN Constipation Melatonin 3 mg 06/21/20 21:00 07/08/20 20:59 Melatonin 3 Mg Tablet PO 3 mg BEDTIME RAMON Administration Mirtazapine 15 mg 06/27/20 21:00 07/08/20 20:59 Mirtazapine 7.5 Mg Tablet PO 15 mg BEDTIME RAMON Administration Omeprazole 20 mg 06/21/20 09:00 07/08/20 08:29 Omeprazole 20 Mg Capsule.Dr PO 20 mg DAILY RAMON Administration Risperidone 1 mg 06/21/20 01:41 07/08/20 14:32 Risperidone 1 Mg Tablet PO 1 mg Q6H PRN Administration Agitation Risperidone 2 mg 06/30/20 21:00 07/08/20 20:58 Risperidone 2 Mg Tablet PO 2 mg BID RAMON Administration Trazodone HCl 50 mg 06/25/20 17:15 07/07/20 00:10 Trazodone Hcl 50 Mg Tablet PO 50 mg BEDTIME PRN Administration Insomnia Allergies Allergies Allergy/AdvReac Type Severity Reaction Status Date / Time ciprofloxacin [CIPROFLOXACIN] AdvReac Intermediate DIARRHEA Verified 04/20/20 16:07 Assessment & Plan Assessment & Plan (1) Smoker: Status: Acute Code(s): F17.200 - Nicotine dependence, unspecified, uncomplicated (2) Bipolar depression: Status: Acute Code(s): F31.9 - Bipolar disorder, unspecified (3) Insomnia: Qualifiers: Insomnia type: unspecified Qualified Code(s): G47.00 - Insomnia, unspecified Status: Acute Code(s): G47.00 - Insomnia, unspecified (4) Neurocognitive disorder: Status: Acute Code(s): R41.9 - Unspecified symptoms and signs involving cognitive functions and awareness Assessment and Plan: pt more stable psychiatrically mtg with family re discharde ft dementia Greater than 50% of the session was spent on counseling and/or coordination of care
--- NOTE | 2020-07-09 | CT_ITS ---
EXAMINATION: CT HEAD WITHOUT CONTRAST CLINICAL INFORMATION: Worsening dementia COMPARISON: None TECHNIQUE: Contiguous axial imaging was performed from the skull base to vertex without intravenous administration of contrast. This CT examination was performed using dose optimization techniques as appropriate, variously including the following: *Automated exposure control *Adjustment of mA and/or kV according to patient size (this includes techniques or standardized protocols for targeted exams where dose is matched to indication/reason for exam; i.e. extremities or head) *Use of iterative reconstruction technique DLP: 818 mGy-cm FINDINGS: There is no evidence of acute intracranial hemorrhage or territorial infarction. No abnormal mass effect or midline shift is seen. Cintron to white matter differentiation is well preserved. No extra-axial fluid collections are identified. The ventricles are normal in size. There is no abnormal attenuation within the brain parenchyma. The osseous structures and soft tissues are normal. The mastoid air cells and visualized portions of the paranasal sinuses are well aerated. CT/CT head/brain wo con IMPRESSION: No acute intracranial process seen.
[2020-07-09 07:00] VITALS: BP 104/63; PULSE 79; RESP 16; TEMP 36.8; O2SAT 100; BMI 31.7
[2020-07-09 09:07] VITALS: BP 104/63; PULSE 79
[2020-07-09] MEDS: Escitalopram Oxalate 10 MG TABLET PO (09:07)
[2020-07-09] MEDS: Donepezil HCl 5 MG TABLET PO (09:07)
[2020-07-09] MEDS: risperiDONE 2 MG TABLET PO ×2 (09:07→20:10)
[2020-07-09] MEDS: lisinopriL 5 MG TABLET PO (09:07)
[2020-07-09] MEDS: hydrOXYzine HCL 50 MG TABLET PO ×2 (09:07→17:30)
[2020-07-09] MEDS: Omeprazole 20 MG CAPSULE.DR PO (09:07)
[2020-07-09] MEDS: LORazepam 0.5 MG TABLET PO ×3 (13:13→22:53)
[2020-07-09 18:00] VITALS: BP 144/82; PULSE 97; TEMP 36.9
--- NOTE | 2020-07-09 18:24 | HO.PSYCHPN ---
Subjective Subjective Date of Service: 07/09/20 Reason For Visit: Bipolar DX SI Interim History: patient says case reviewed extensively with Neurology and discussed with patient's reviewed diagnosis and prognosis oriented to place, year, situation, date/day. Pt with expressive aphasia, most speech is intelligible and non sensical. Pt has episodes of spontaneous tearfulness that resolved quickly and then his affect appears brighter. Pt has not been aggressive towards staff or peers. Review of Systems Review of Systems He did not answer questions about review of system. Yes all other systems are reviewed and are negative Mental Status Exam Mental Status Exam Narrative: Appearance: casually groomes, fair hygine, pt does need clues to complete ADL, in NAD Behavior: pt calm, pleasant. Psychomotor: no agitation nor retardation noted. No EPS. Speech: aphasia TP: disorganized, TC: looking for the convenience store Mood: good Affect: bright, but later seen crying Insight/judgment: impaired x 2 Memory/cog: alert, severely impaired. Patient Appearance: Appropriate Patient Orientation: Person Level of Consciousness: Awake Patient Behavior: Appropriate Mood Description: Depressed and Flat Affect Description: Withdrawn and Blunted Patient Cognition Impaired: Yes Ability to Follow Directions: Fair Speech Pattern: Impoverished Memory Description: Remote Impaired, Immediate Impaired and Episodic Impaired Diagnostics Vital Signs (24Hr): Vital Signs - 24 hr 07/09/20 07:00 07/09/20 09:07 Temperature 98.2 F Pulse Rate 79 79 Respiratory Rate 16 Blood Pressure 104/63 104/63 Pulse Oximetry 100 Body Mass Index 31.7 Labs Results: 06/20/20 13:36 06/26/20 08:25 Imaging Radiology Impressions: ITS Impressions Head CT 07/09/20 00:00 IMPRESSION: No acute intracranial process seen. Medications Medications Current Medications Generic Name Dose Route Start Last Admin Trade Name Freq PRN Reason Stop Dose Admin Acetaminophen 650 mg 06/25/20 17:15 07/03/20 08:19 Acetaminophen 325 Mg Tablet PO 650 mg Q6H PRN Administration Headache/Pain Mild Scale (1-3) Al Hydroxide/Mg Hydroxide 30 ml 06/25/20 17:15 Magnesium Hydrox/Alum Hydrox 30 Ml Oral.Susp PO Q6H PRN Heartburn/Nausea Albuterol Sulfate 2 puff 06/21/20 01:41 Albuterol Sulfate 90 Mcg 8 Gm Inhaler INHALE .4 TIMES A DAY PRN Shortness Of Breath Or Wheezing Atorvastatin Calcium 40 mg 06/21/20 21:00 07/08/20 21:01 Atorvastatin Calcium 40 Mg Tablet PO 40 mg BEDTIME RAMON Administration Divalproex Sodium 375 mg 06/30/20 21:00 07/09/20 09:06 Divalproex Sodium 125 Mg Tablet. PO 375 mg BID RAMON Administration Donepezil HCl 5 mg 06/21/20 09:00 07/09/20 09:07 Donepezil Hcl 5 Mg Tablet PO 5 mg DAILY RAMON Administration Escitalopram Oxalate 10 mg 06/28/20 09:00 07/09/20 09:07 Escitalopram Oxalate 10 Mg Tablet PO 10 mg DAILY RAMON Administration Hydroxyzine HCl 50 mg 06/21/20 02:32 07/09/20 17:30 Hydroxyzine Hcl 50 Mg Tablet PO 50 mg Q4H PRN Administration Anxiety Hydroxyzine HCl 25 mg 06/25/20 17:15 07/04/20 23:55 Hydroxyzine Hcl 25 Mg Tablet PO 25 mg BEDTIME PRN Administration Anxiety Lisinopril 5 mg 06/21/20 09:00 07/09/20 09:07 Lisinopril 5 Mg Tablet PO 5 mg DAILY RAMON Administration Protocol Lorazepam 0.5 mg 07/09/20 11:25 07/09/20 17:31 Lorazepam 0.5 Mg Tablet PO 0.5 mg Q4H PRN Administration Anxiety Magnesium Hydroxide 30 ml 06/25/20 17:15 Milk Of Magnesia 30 Ml Oral.Susp PO DAILY PRN Constipation Melatonin 3 mg 06/21/20 21:00 07/08/20 20:59 Melatonin 3 Mg Tablet PO 3 mg BEDTIME RAMON Administration Mirtazapine 15 mg 06/27/20 21:00 07/08/20 20:59 Mirtazapine 7.5 Mg Tablet PO 15 mg BEDTIME RAMON Administration Omeprazole 20 mg 06/21/20 09:00 07/09/20 09:07 Omeprazole 20 Mg Capsule. PO 20 mg DAILY RAMON Administration Risperidone 1 mg 06/21/20 01:41 07/08/20 14:32 Risperidone 1 Mg Tablet PO 1 mg Q6H PRN Administration Agitation Risperidone 2 mg 06/30/20 21:00 07/09/20 09:07 Risperidone 2 Mg Tablet PO 2 mg BID RAMON Administration Trazodone HCl 50 mg 06/25/20 17:15 07/07/20 00:10 Trazodone Hcl 50 Mg Tablet PO 50 mg BEDTIME PRN Administration Insomnia Allergies Allergies Allergy/AdvReac Type Severity Reaction Status Date / Time ciprofloxacin [CIPROFLOXACIN] AdvReac Intermediate DIARRHEA Verified 04/20/20 16:07 Assessment & Plan Assessment & Plan (1) Smoker: Status: Acute Code(s): F17.200 - Nicotine dependence, unspecified, uncomplicated (2) Bipolar depression: Status: Acute Code(s): F31.9 - Bipolar disorder, unspecified (3) Insomnia: Qualifiers: Insomnia type: unspecified Qualified Code(s): G47.00 - Insomnia, unspecified Status: Acute Code(s): G47.00 - Insomnia, unspecified (4) Neurocognitive disorder: Status: Acute Code(s): R41.9 - Unspecified symptoms and signs involving cognitive functions and awareness Assessment and Plan: 1. Increase Trazodone for sleep. 2. D/c remeron due to lack of efficacy for sleep. 3. Continue Lexapro 4. Continue Depakote. head CT scan reviewed with Neurology who feels there is significant frontal temporal atrophy not noted by radiology reading Greater than 50% of the session was spent on counseling and/or coordination of care
[2020-07-09] MEDS: Mirtazapine 7.5 MG TABLET 15 MG PO (20:11)
[2020-07-09] MEDS: Melatonin 3 MG TABLET PO (20:11)
[2020-07-09] MEDS: Atorvastatin Calcium 40 MG TABLET PO (20:11)
[2020-07-09] MEDS: traZODone HCL 50 MG TABLET PO (22:53)
[2020-07-09] MEDS: hydrOXYzine HCL 25 MG TABLET PO (22:53)
[2020-07-10 06:00] VITALS: BP 103/62; PULSE 50; TEMP 37; O2SAT 100
[2020-07-10 08:42] VITALS: BP 111/65; PULSE 71
[2020-07-10] MEDS: Donepezil HCl 5 MG TABLET PO (08:42)
[2020-07-10] MEDS: Omeprazole 20 MG CAPSULE.DR PO (08:42)
[2020-07-10] MEDS: risperiDONE 2 MG TABLET PO ×2 (08:42→20:34)
[2020-07-10] MEDS: Escitalopram Oxalate 10 MG TABLET PO (08:42)
[2020-07-10] MEDS: lisinopriL 5 MG TABLET PO (08:42)
[2020-07-10] MEDS: LORazepam 0.5 MG TABLET PO ×2 (08:42→17:59)
--- NOTE | 2020-07-10 15:39 | HO.PSYCHPN ---
Subjective Subjective Date of Service: 07/10/20 Reason For Visit: Bipolar DX SI Interim History: Reviewed nursing notes. Discussed patient during rounds daily. Per nursing, pt up most of the night, confused, wondering, took shower in middle of the night. Pt going into other pt's room. He is not oriented to place, year, situation, date/day. Pt with expressive aphasia, most speech is intelligible and non sensical. Pt has episodes of spontaneous tearfulness that resolved quickly and then his affect appears brighter. Pt has not been aggressive towards staff or peers. Review of Systems Review of Systems He did not answer questions about review of system. Yes all other systems are reviewed and are negative Mental Status Exam Mental Status Exam Narrative: Appearance: casually groomes, fair hygine, pt does need clues to complete ADL, in NAD Behavior: pt calm, pleasant. Psychomotor: no agitation nor retardation noted. No EPS. Speech: aphasia TP: disorganized, TC: looking for the convenience store Mood: good Affect: bright, but later seen crying Insight/judgment: impaired x 2 Memory/cog: alert, severely impaired. Patient Cognition Impaired: Yes Ability to Follow Directions: Fair Diagnostics Vital Signs (24Hr): Vital Signs - 24 hr 07/09/20 18:00 07/10/20 06:00 07/10/20 08:42 Temperature 98.5 F 98.6 F Pulse Rate 97 50 71 Blood Pressure 144/82 H 103/62 111/65 Pulse Oximetry 100 Body Mass Index 31.7 Labs Results: 06/20/20 13:36 06/26/20 08:25 Imaging Radiology Impressions: ITS Impressions Head CT 07/09/20 00:00 IMPRESSION: No acute intracranial process seen. Medications Medications Current Medications Generic Name Dose Route Start Last Admin Trade Name Freq PRN Reason Stop Dose Admin Acetaminophen 650 mg 06/25/20 17:15 07/03/20 08:19 Acetaminophen 325 Mg Tablet PO 650 mg Q6H PRN Administration Headache/Pain Mild Scale (1-3) Al Hydroxide/Mg Hydroxide 30 ml 06/25/20 17:15 Magnesium Hydrox/Alum Hydrox 30 Ml Oral.Susp PO Q6H PRN Heartburn/Nausea Albuterol Sulfate 2 puff 06/21/20 01:41 Albuterol Sulfate 90 Mcg 8 Gm Inhaler INHALE .4 TIMES A DAY PRN Shortness Of Breath Or Wheezing Atorvastatin Calcium 40 mg 06/21/20 21:00 07/09/20 20:11 Atorvastatin Calcium 40 Mg Tablet PO 40 mg BEDTIME RAMON Administration Divalproex Sodium 375 mg 06/30/20 21:00 07/10/20 08:42 Divalproex Sodium 125 Mg Tablet.Dr PO 375 mg BID RAMON Administration Donepezil HCl 5 mg 06/21/20 09:00 07/10/20 08:42 Donepezil Hcl 5 Mg Tablet PO 5 mg DAILY RAMON Administration Escitalopram Oxalate 10 mg 06/28/20 09:00 07/10/20 08:42 Escitalopram Oxalate 10 Mg Tablet PO 10 mg DAILY RAMON Administration Hydroxyzine HCl 50 mg 06/21/20 02:32 07/09/20 17:30 Hydroxyzine Hcl 50 Mg Tablet PO 50 mg Q4H PRN Administration Anxiety Hydroxyzine HCl 25 mg 06/25/20 17:15 07/09/20 22:53 Hydroxyzine Hcl 25 Mg Tablet PO 25 mg BEDTIME PRN Administration Anxiety Lisinopril 5 mg 06/21/20 09:00 07/10/20 08:42 Lisinopril 5 Mg Tablet PO 5 mg DAILY RAMON Administration Protocol Lorazepam 0.5 mg 07/09/20 11:25 07/10/20 08:42 Lorazepam 0.5 Mg Tablet PO 0.5 mg Q4H PRN Administration Anxiety Magnesium Hydroxide 30 ml 06/25/20 17:15 Milk Of Magnesia 30 Ml Oral.Susp PO DAILY PRN Constipation Melatonin 3 mg 06/21/20 21:00 07/09/20 20:11 Melatonin 3 Mg Tablet PO 3 mg BEDTIME RAMON Administration Mirtazapine 15 mg 06/27/20 21:00 07/09/20 20:11 Mirtazapine 7.5 Mg Tablet PO 15 mg BEDTIME RAMON Administration Omeprazole 20 mg 06/21/20 09:00 07/10/20 08:42 Omeprazole 20 Mg Capsule.Dr PO 20 mg DAILY RAMON Administration Risperidone 1 mg 06/21/20 01:41 07/08/20 14:32 Risperidone 1 Mg Tablet PO 1 mg Q6H PRN Administration Agitation Risperidone 2 mg 06/30/20 21:00 07/10/20 08:42 Risperidone 2 Mg Tablet PO 2 mg BID RAMON Administration Trazodone HCl 50 mg 06/25/20 17:15 07/09/20 22:53 Trazodone Hcl 50 Mg Tablet PO 50 mg BEDTIME PRN Administration Insomnia Allergies Allergies Allergy/AdvReac Type Severity Reaction Status Date / Time ciprofloxacin [CIPROFLOXACIN] AdvReac Intermediate DIARRHEA Verified 04/20/20 16:07 Assessment & Plan Assessment & Plan (1) Smoker: Status: Acute Code(s): F17.200 - Nicotine dependence, unspecified, uncomplicated (2) Bipolar depression: Status: Acute Code(s): F31.9 - Bipolar disorder, unspecified (3) Insomnia: Qualifiers: Insomnia type: unspecified Qualified Code(s): G47.00 - Insomnia, unspecified Status: Acute Code(s): G47.00 - Insomnia, unspecified (4) Neurocognitive disorder: Status: Acute Code(s): R41.9 - Unspecified symptoms and signs involving cognitive functions and awareness Assessment and Plan: 1. Increase Trazodone for sleep. 2. D/c remeron due to lack of efficacy for sleep. 3. Continue Lexapro 4. Continue Depakote. Greater than 50% of the session was spent on counseling and/or coordination of care Informed Consent: does not understand Reason for contiued inpatient stay Substantial Risk for: inability to function
[2020-07-10] MEDS: hydrOXYzine HCL 50 MG TABLET PO (17:59)
[2020-07-10 18:00] VITALS: BP 119/67; PULSE 80; TEMP 36.7
[2020-07-10] MEDS: Melatonin 3 MG TABLET PO (20:33)
[2020-07-10] MEDS: Atorvastatin Calcium 40 MG TABLET PO (20:34)
[2020-07-10] MEDS: traZODone HCL 50 MG TABLET PO (20:34)
[2020-07-11] MEDS: risperiDONE 1 MG TABLET PO (04:22)
[2020-07-11] MEDS: LORazepam 0.5 MG TABLET PO ×2 (04:22→16:09)
[2020-07-11 05:10] VITALS: BP 114/63; PULSE 72; RESP 18; TEMP 36.8; O2SAT 99
[2020-07-11 08:34] VITALS: BP 114/63; PULSE 72
[2020-07-11] MEDS: risperiDONE 2 MG TABLET PO ×2 (08:34→21:10)
[2020-07-11] MEDS: Donepezil HCl 5 MG TABLET PO (08:34)
[2020-07-11] MEDS: lisinopriL 5 MG TABLET PO (08:34)
[2020-07-11] MEDS: Escitalopram Oxalate 10 MG TABLET PO (08:34)
[2020-07-11] MEDS: Omeprazole 20 MG CAPSULE.DR PO (08:34)
[2020-07-11] MEDS: hydrOXYzine HCL 50 MG TABLET PO (16:09)
[2020-07-11 18:00] VITALS: BP 117/56; PULSE 77; TEMP 36.5
--- NOTE | 2020-07-11 18:08 | HO.PSYCHPN ---
Subjective Subjective Date of Service: 07/11/20 Reason For Visit: Bipolar DX SI Subjective Notes: Conditional Voluntary Interim History: Anxious. Met with team, spanish interpreter and TW. Denies current issues. Met with his room-mate and TW where he was smiling, jovial, and attempted to engage verbally and non verbally. Sleep interrupted, requires prompting for using the bathroom and eating. Medication Compliance: Yes Side effects from medications: No Attending Groups: No Review of Systems Reports confusion Psychiatric: Reports anxiety, Reports confusion and Reports difficulty concentrating Mental Status Exam Mental Status Exam Patient Appearance: Appropriate Patient Orientation: Person Level of Consciousness: Awake, Disoriented and Alert Patient Behavior: Appropriate, Cooperative, Passive and Wandering Mood Description: Calm, Withdrawn and Anxious Affect Description: Flat Patient Cognition Impaired: Yes Ability to Follow Directions: Fair Speech Pattern: Impoverished, Difficulty Finding Words, Soft-Spoken, Poor Articulation and Long Pauses Memory Description: Remote Impaired, Immediate Impaired and Recent Impaired Hallucinations: None (no sx noted today) Thought Process: Disoriented Thought Content: positive for Disoriented Depressive Symptoms: Increased Anxiety, Insomnia and Difficulty Sleeping Judgement: Poor Diagnostics Vital Signs (24Hr): Vital Signs - 24 hr 07/11/20 05:10 07/11/20 08:34 Temperature 98.2 F Pulse Rate 72 72 Respiratory Rate 18 Blood Pressure 114/63 114/63 Pulse Oximetry 99 Body Mass Index 31.7 Labs Results: 06/20/20 13:36 06/26/20 08:25 Imaging Radiology Impressions: ITS Impressions Head CT 07/09/20 00:00 IMPRESSION: No acute intracranial process seen. Medications Medications Current Medications Generic Name Dose Route Start Last Admin Trade Name Freq PRN Reason Stop Dose Admin Acetaminophen 650 mg 06/25/20 17:15 07/03/20 08:19 Acetaminophen 325 Mg Tablet PO 650 mg Q6H PRN Administration Headache/Pain Mild Scale (1-3) Al Hydroxide/Mg Hydroxide 30 ml 06/25/20 17:15 Magnesium Hydrox/Alum Hydrox 30 Ml Oral.Susp PO Q6H PRN Heartburn/Nausea Albuterol Sulfate 2 puff 06/21/20 01:41 Albuterol Sulfate 90 Mcg 8 Gm Inhaler INHALE .4 TIMES A DAY PRN Shortness Of Breath Or Wheezing Atorvastatin Calcium 40 mg 06/21/20 21:00 07/10/20 20:34 Atorvastatin Calcium 40 Mg Tablet PO 40 mg BEDTIME RAMON Administration Divalproex Sodium 375 mg 06/30/20 21:00 07/11/20 08:33 Divalproex Sodium 125 Mg Tablet.Dr PO 375 mg BID RAMON Administration Donepezil HCl 5 mg 06/21/20 09:00 07/11/20 08:34 Donepezil Hcl 5 Mg Tablet PO 5 mg DAILY RAMON Administration Escitalopram Oxalate 10 mg 06/28/20 09:00 07/11/20 08:34 Escitalopram Oxalate 10 Mg Tablet PO 10 mg DAILY RAMON Administration Hydroxyzine HCl 50 mg 06/21/20 02:32 07/11/20 16:09 Hydroxyzine Hcl 50 Mg Tablet PO 50 mg Q4H PRN Administration Anxiety Hydroxyzine HCl 25 mg 06/25/20 17:15 07/09/20 22:53 Hydroxyzine Hcl 25 Mg Tablet PO 25 mg BEDTIME PRN Administration Anxiety Lisinopril 5 mg 06/21/20 09:00 07/11/20 08:34 Lisinopril 5 Mg Tablet PO 5 mg DAILY RAMON Administration Protocol Lorazepam 0.5 mg 07/09/20 11:25 07/11/20 16:09 Lorazepam 0.5 Mg Tablet PO 0.5 mg Q4H PRN Administration Anxiety Magnesium Hydroxide 30 ml 06/25/20 17:15 Milk Of Magnesia 30 Ml Oral.Susp PO DAILY PRN Constipation Melatonin 3 mg 06/21/20 21:00 07/10/20 20:33 Melatonin 3 Mg Tablet PO 3 mg BEDTIME RAMON Administration Omeprazole 20 mg 06/21/20 09:00 07/11/20 08:34 Omeprazole 20 Mg Capsule.Dr PO 20 mg DAILY RAMON Administration Risperidone 1 mg 06/21/20 01:41 07/11/20 04:22 Risperidone 1 Mg Tablet PO 1 mg Q6H PRN Administration Agitation Risperidone 2 mg 06/30/20 21:00 07/11/20 08:34 Risperidone 2 Mg Tablet PO 2 mg BID RAMON Administration Trazodone HCl 50 mg 06/25/20 17:15 07/09/20 22:53 Trazodone Hcl 50 Mg Tablet PO 50 mg BEDTIME PRN Administration Insomnia Trazodone HCl 50 mg 07/10/20 21:00 07/10/20 20:34 Trazodone Hcl 50 Mg Tablet PO 50 mg BEDTIME RAMON Administration Allergies Allergies Allergy/AdvReac Type Severity Reaction Status Date / Time ciprofloxacin [CIPROFLOXACIN] AdvReac Intermediate DIARRHEA Verified 04/20/20 16:07 Assessment & Plan Assessment & Plan (1) Neurocognitive disorder: Status: Acute Code(s): R41.9 - Unspecified symptoms and signs involving cognitive functions and awareness Assessment and Plan: -Continue current plan of care (2) Bipolar depression: Status: Acute Code(s): F31.9 - Bipolar disorder, unspecified Assessment and Plan: -Continue current regime Greater than 50% of the session was spent on counseling and/or coordination of care
[2020-07-11] MEDS: Atorvastatin Calcium 40 MG TABLET PO (21:10)
[2020-07-11] MEDS: Melatonin 3 MG TABLET PO (21:10)
[2020-07-11] MEDS: traZODone HCL 50 MG TABLET PO (21:11)
[2020-07-12 06:25] VITALS: BP 128/79; PULSE 78; RESP 16; TEMP 36.4; O2SAT 99
[2020-07-12] MEDS: Escitalopram Oxalate 10 MG TABLET PO (08:44)
[2020-07-12] MEDS: risperiDONE 2 MG TABLET PO ×2 (08:44→20:09)
[2020-07-12 08:45] VITALS: BP 128/79; PULSE 78
[2020-07-12] MEDS: lisinopriL 5 MG TABLET PO (08:45)
[2020-07-12] MEDS: Donepezil HCl 5 MG TABLET PO (08:46)
[2020-07-12] MEDS: Omeprazole 20 MG CAPSULE.DR PO (08:46)
[2020-07-12] MEDS: risperiDONE 1 MG TABLET PO ×2 (11:30→17:36)
[2020-07-12] MEDS: LORazepam 0.5 MG TABLET PO ×2 (11:30→16:17)
[2020-07-12] MEDS: hydrOXYzine HCL 50 MG TABLET PO (16:18)
--- NOTE | 2020-07-12 17:15 | P.PNPSI_ITS ---
Subjective Subjective Date of Service: 07/12/20 Reason For Visit: Bipolar DX SI Interim History: Sad, crying today when meeting with team. Hearing voices, some content about his mother and asking team to look to God . Utilizing several prns over the weekend, sleep interrupted. Medication Compliance: Yes Side effects from medications: Yes Attending Groups: No Review of Systems Reports confusion Psychiatric: Reports confusion, Reports depression, Reports difficulty concentrating and Reports other (crying, sobbing) Mental Status Exam Mental Status Exam Patient Appearance: Fatigued Patient Orientation: Person Level of Consciousness: Awake and Alert Patient Behavior: Talkative, Cooperative, Passive, Wandering, Anxious, Fatigued, Distractible, Confused, Crying and Pacing Mood Description: Depressed Affect Description: Flat Patient Cognition Impaired: Yes Ability to Follow Directions: Poor Speech Pattern: Difficulty Finding Words, Spontaneous Speech, Soft-Spoken and Cofabulation Memory Description: Remote Impaired, Immediate Impaired, Cell Repairer Impaired, Episodic Impaired, Recent Impaired, Working Impaired and Semantic Impaired Hallucinations: Auditory Thought Process: Disoriented, Illogical, Distracted, Rumination and Slowed Thinking Thought Content: positive for Disoriented and positive for Perseveration Depressive Symptoms: Insomnia, Difficulty Sleeping and Unhappiness Judgement: Poor Diagnostics Vital Signs (24Hr): Vital Signs - 24 hr 07/11/20 18:00 07/12/20 06:25 07/12/20 08:45 Temperature 77 F L 97.5 F Pulse Rate 77 78 78 Respiratory Rate 16 Blood Pressure 117/56 L 128/79 128/79 Pulse Oximetry 99 Body Mass Index 31.7 Labs Results: 06/20/20 13:36 06/26/20 08:25 Imaging Radiology Impressions: ITS Impressions Head CT 07/09/20 00:00 IMPRESSION: No acute intracranial process seen. Medications Medications Current Medications Generic Name Dose Route Start Last Admin Trade Name Freq PRN Reason Stop Dose Admin Acetaminophen 650 mg 06/25/20 17:15 07/03/20 08:19 Acetaminophen 325 Mg Tablet PO 650 mg Q6H PRN Administration Headache/Pain Mild Scale (1-3) Al Hydroxide/Mg Hydroxide 30 ml 06/25/20 17:15 Magnesium Hydrox/Alum Hydrox 30 Ml Oral.Susp PO Q6H PRN Heartburn/Nausea Albuterol Sulfate 2 puff 06/21/20 01:41 Albuterol Sulfate 90 Mcg 8 Gm Inhaler INHALE .4 TIMES A DAY PRN Shortness Of Breath Or Wheezing Atorvastatin Calcium 40 mg 06/21/20 21:00 07/11/20 21:10 Atorvastatin Calcium 40 Mg Tablet PO 40 mg BEDTIME RAMON Administration Divalproex Sodium 500 mg 07/12/20 21:00 Divalproex Sodium 500 Mg Tablet. PO BID RAMON Donepezil HCl 5 mg 06/21/20 09:00 07/12/20 08:46 Donepezil Hcl 5 Mg Tablet PO 5 mg DAILY RAMON Administration Escitalopram Oxalate 10 mg 06/28/20 09:00 07/12/20 08:44 Escitalopram Oxalate 10 Mg Tablet PO 10 mg DAILY RAMON Administration Ferrous Sulfate 324 mg 07/13/20 09:00 Ferrous Sulfate 324 Mg Tablet. PO DAILY RAMON Hydroxyzine HCl 50 mg 06/21/20 02:32 07/12/20 16:18 Hydroxyzine Hcl 50 Mg Tablet PO 50 mg Q4H PRN Administration Anxiety Hydroxyzine HCl 25 mg 06/25/20 17:15 07/09/20 22:53 Hydroxyzine Hcl 25 Mg Tablet PO 25 mg BEDTIME PRN Administration Anxiety Lisinopril 5 mg 06/21/20 09:00 07/12/20 08:45 Lisinopril 5 Mg Tablet PO 5 mg DAILY RAMON Administration Protocol Lorazepam 0.5 mg 07/09/20 11:25 07/12/20 16:17 Lorazepam 0.5 Mg Tablet PO 0.5 mg Q4H PRN Administration Anxiety Magnesium Hydroxide 30 ml 06/25/20 17:15 Milk Of Magnesia 30 Ml Oral.Susp PO DAILY PRN Constipation Melatonin 3 mg 06/21/20 21:00 07/11/20 21:10 Melatonin 3 Mg Tablet PO 3 mg BEDTIME RAMON Administration Omeprazole 20 mg 06/21/20 09:00 07/12/20 08:46 Omeprazole 20 Mg Capsule. PO 20 mg DAILY RAMON Administration Risperidone 1 mg 06/21/20 01:41 07/12/20 11:30 Risperidone 1 Mg Tablet PO 1 mg Q6H PRN Administration Agitation Risperidone 2 mg 06/30/20 21:00 07/12/20 08:44 Risperidone 2 Mg Tablet PO 2 mg BID RAMON Administration Trazodone HCl 50 mg 06/25/20 17:15 07/09/20 22:53 Trazodone Hcl 50 Mg Tablet PO 50 mg BEDTIME PRN Administration Insomnia Trazodone HCl 50 mg 07/10/20 21:00 07/11/20 21:11 Trazodone Hcl 50 Mg Tablet PO 50 mg BEDTIME RAMON Administration Allergies Allergies Allergy/AdvReac Type Severity Reaction Status Date / Time ciprofloxacin [CIPROFLOXACIN] AdvReac Intermediate DIARRHEA Verified 04/20/20 16:07 Assessment & Plan Assessment & Plan (1) Neurocognitive disorder: Status: Acute Code(s): R41.9 - Unspecified symptoms and signs involving cognitive functions and awaren ess Assessment and Plan: -Iron supplementation. (2) Bipolar depression: Status: Acute Code(s): F31.9 - Bipolar disorder, unspecified Assessment and Plan: -Increase Depakote to 500 mg bid -Labs 07/13 CBCD, Valproate, Iron Profile Greater than 50% of the session was spent on counseling and/or coordination of care
[2020-07-12 18:00] VITALS: BP 125/62; PULSE 83; TEMP 36.4
[2020-07-12] MEDS: Atorvastatin Calcium 40 MG TABLET PO (20:09)
[2020-07-12] MEDS: traZODone HCL 50 MG TABLET PO (20:09)
[2020-07-12] MEDS: Melatonin 3 MG TABLET PO (20:09)
[2020-07-12] MEDS: Divalproex Sodium 500 MG TABLET.DR PO (20:09)
[2020-07-13] MEDS: hydrOXYzine HCL 25 MG TABLET PO (01:15)
[2020-07-13] MEDS: traZODone HCL 50 MG TABLET PO ×2 (01:15→20:23)
[2020-07-13 06:10] VITALS: BP 120/64; PULSE 71; RESP 16; TEMP 36.6; O2SAT 97
[2020-07-13 08:05] LABS: MANUAL DIFF FLAG NO
[2020-07-13 08:16] LABS: Basophils Absolute Auto 0.1 X10*3/uL (0.0-0.2); Basophils Percent Auto 0.8 % (0-2); Eosinophils Absolute Auto 0.4 X10*3/uL (0.0-0.4); Eosinophils Percent Auto 5.5 % (0-4); Hemoglobin 12.7 g/dl (14.0-18.0); Imm Gran Abs Auto 0.01 X10*3/uL (0.00-0.03); Imm Gran Pct Auto 0.2 % (0.0-0.4); Lymphocytes Absolute Auto 2.6 X10*3/uL (1.2-4.9); Mean Corpuscular HGB Conc 32.6 g/dl (31.0-36.0); Mean Corpuscular Hemoglobin 31.5 pg (27.0-33.0); Mean Corpuscular Volume 96.8 fL (80-98); Mean Platelet Volume 9.5 fL (9.4-12.4); Monocytes Absolute Auto 0.6 X10*3/uL (0.1-1.2); Monocytes Percent Auto 9.7 % (2-11); Neutrophils Absolute Auto 2.8 X10*3/uL (2.0-8.3); Neutrophils Percent Auto 43.8 % (45-73); Platelet Count 208 X10*3/uL (160-400); Red Blood Count 4.03 X10*6/uL (4.60-5.80); Red Cell Distribution Width 13.2 % (11.0-16.0); White Blood Count 6.4 X10*3/uL (4.8-10.8)
[2020-07-13] MEDS: Donepezil HCl 5 MG TABLET PO (08:32)
[2020-07-13] MEDS: risperiDONE 2 MG TABLET PO ×2 (08:32→20:24)
[2020-07-13] MEDS: Omeprazole 20 MG CAPSULE.DR PO (08:32)
[2020-07-13 08:33] VITALS: BP 120/64; PULSE 71
[2020-07-13] MEDS: lisinopriL 5 MG TABLET PO (08:33)
[2020-07-13] MEDS: Divalproex Sodium 500 MG TABLET.DR PO ×2 (08:33→20:23)
[2020-07-13] MEDS: Ferrous Sulfate 324 MG TABLET.DR PO (08:33)
[2020-07-13] MEDS: Escitalopram Oxalate 10 MG TABLET PO (08:34)
[2020-07-13 08:40] LABS: Iron 129 mcg/dL (45-160); Percent Iron Saturation 49 % (15-50); Total Iron Binding Capacity 261 mcg/dL (228-428); Unsaturated Iron Binding 132 ug/dL
[2020-07-13 08:45] LABS: Valproate 59.3 mcg/mL (50.0-100.0)
[2020-07-13] MEDS: LORazepam 0.5 MG TABLET PO ×4 (10:19→20:24)
[2020-07-13] MEDS: hydrOXYzine HCL 50 MG TABLET PO (16:48)
[2020-07-13] MEDS: risperiDONE 1 MG TABLET PO (16:48)
[2020-07-13 18:00] VITALS: BP 125/76; PULSE 73; TEMP 36.3
[2020-07-13] MEDS: Melatonin 3 MG TABLET PO (20:23)
[2020-07-13] MEDS: Atorvastatin Calcium 40 MG TABLET PO (20:24)
--- NOTE | 2020-07-13 21:38 | P.PNPSI_ITS ---
Subjective Subjective Date of Service: 07/14/20 Reason For Visit: Bipolar DX SI Subjective Notes: Conditional Voluntary Interim History: PT generally gradually doing better case reviewed with neurology Medication Compliance: Yes Review of Systems Reports confusion Psychiatric: Reports confusion Mental Status Exam Mental Status Exam Patient Appearance: Fatigued Patient Orientation: Person Level of Consciousness: Awake and Alert Patient Behavior: Talkative, Cooperative, Passive, Wandering, Anxious, Fatigued, Distractible, Confused, Crying and Pacing Mood Description: Depressed Affect Description: Flat Patient Cognition Impaired: Yes Ability to Follow Directions: Poor Speech Pattern: Difficulty Finding Words, Spontaneous Speech, Soft-Spoken and Cofabulation Memory Description: Remote Impaired, Immediate Impaired, [employer] Impaired, Episodic Impaired, Recent Impaired, Working Impaired and Semantic Impaired Hallucinations: Auditory Thought Process: Disoriented, Illogical, Distracted, Rumination and Slowed Thinking Thought Content: positive for Disoriented and positive for Perseveration Depressive Symptoms: Insomnia, Difficulty Sleeping and Unhappiness Judgement: Poor Diagnostics Vital Signs (24Hr): Vital Signs - 24 hr 07/13/20 06:10 07/13/20 08:33 Temperature 97.9 F Pulse Rate 71 71 Respiratory Rate 16 Blood Pressure 120/64 120/64 Pulse Oximetry 97 Body Mass Index 31.7 Labs Results: 07/13/20 07:50 06/26/20 08:25 Labs: Laboratory Results - last 48 hr 07/13/20 07/13/20 07/13/20 07:50 07:50 07:50 WBC 6.4 RBC 4.03 L Hgb 12.7 L Hct 39.0 L MCV 96.8 MCH 31.5 MCHC 32.6 RDW 13.2 Plt Count 208 MPV 9.5 Immature Gran % (Auto) 0.2 Neut % (Auto) 43.8 L Lymph % (Auto) 40.0 Campbell % (Auto) 9.7 Eos % (Auto) 5.5 H Baso % (Auto) 0.8 Lymph # (Auto) 2.6 Campbell # (Auto) 0.6 Eos # (Auto) 0.4 Baso # (Auto) 0.1 Abs Immat Gran (auto) 0.01 Absolute Neuts (auto) 2.8 Absolute Nucleated RBC 0.000 Nucleated RBC % (auto) 0.0 Iron 129 TIBC 261 % Saturation 49 Unsat Iron Binding 132 Valproic Acid 59.3 Imaging Radiology Impressions: ITS Impressions Head CT 07/09/20 00:00 IMPRESSION: No acute intracranial process seen. Medications Medications Current Medications Generic Name Dose Route Start Last Admin Trade Name Oswald PRN Reason Stop Dose Admin Acetaminophen 650 mg 06/25/20 17:15 07/03/20 08:19 Acetaminophen 325 Mg Tablet PO 650 mg Q6H PRN Administration Headache/Pain Mild Scale (1-3) Al Hydroxide/Mg Hydroxide 30 ml 06/25/20 17:15 Magnesium Hydrox/Alum Hydrox 30 Ml Oral.Susp PO Q6H PRN Heartburn/Nausea Albuterol Sulfate 2 puff 06/21/20 01:41 Albuterol Sulfate 90 Mcg 8 Gm Inhaler INHALE .4 TIMES A DAY PRN Shortness Of Breath Or Wheezing Atorvastatin Calcium 40 mg 06/21/20 21:00 07/13/20 20:24 Atorvastatin Calcium 40 Mg Tablet PO 40 mg BEDTIME RAMON Administration Divalproex Sodium 500 mg 07/12/20 21:00 07/13/20 20:23 Divalproex Sodium 500 Mg Tablet. PO 500 mg BID RAMON Administration Donepezil HCl 5 mg 06/21/20 09:00 07/13/20 08:32 Donepezil Hcl 5 Mg Tablet PO 5 mg DAILY RAMON Administration Escitalopram Oxalate 10 mg 06/28/20 09:00 07/13/20 08:34 Escitalopram Oxalate 10 Mg Tablet PO 10 mg DAILY RAMON Administration Ferrous Sulfate 324 mg 07/13/20 09:00 07/13/20 08:33 Ferrous Sulfate 324 Mg Tablet. PO 324 mg DAILY RAMON Administration Hydroxyzine HCl 50 mg 06/21/20 02:32 07/13/20 16:48 Hydroxyzine Hcl 50 Mg Tablet PO 50 mg Q4H PRN Administration Anxiety Hydroxyzine HCl 25 mg 06/25/20 17:15 07/13/20 01:15 Hydroxyzine Hcl 25 Mg Tablet PO 25 mg BEDTIME PRN Administration Anxiety Lisinopril 5 mg 06/21/20 09:00 07/13/20 08:33 Lisinopril 5 Mg Tablet PO 5 mg DAILY RAMON Administration Protocol Lorazepam 0.5 mg 07/09/20 11:25 07/13/20 18:28 Lorazepam 0.5 Mg Tablet PO 0.5 mg Q4H PRN Administration Anxiety Lorazepam 0.5 mg 07/13/20 09:45 07/13/20 20:24 Lorazepam 0.5 Mg Tablet PO 0.5 mg TID RAMON Administration Magnesium Hydroxide 30 ml 06/25/20 17:15 Milk Of Magnesia 30 Ml Oral.Susp PO DAILY PRN Constipation Melatonin 3 mg 06/21/20 21:00 07/13/20 20:23 Melatonin 3 Mg Tablet PO 3 mg BEDTIME RAMON Administration Omeprazole 20 mg 06/21/20 09:00 07/13/20 08:32 Omeprazole 20 Mg Capsule.Dr PO 20 mg DAILY RAMON Administration Risperidone 1 mg 06/21/20 01:41 07/13/20 16:48 Risperidone 1 Mg Tablet PO 1 mg Q6H PRN Administration Agitation Risperidone 2 mg 06/30/20 21:00 07/13/20 20:24 Risperidone 2 Mg Tablet PO 2 mg BID RAMON Administration Trazodone HCl 50 mg 06/25/20 17:15 07/13/20 01:15 Trazodone Hcl 50 Mg Tablet PO 50 mg BEDTIME PRN Administration Insomnia Trazodone HCl 50 mg 07/10/20 21:00 07/13/20 20:23 Trazodone Hcl 50 Mg Tablet PO 50 mg BEDTIME RAMON Administration Allergies Allergies Allergy/AdvReac Type Severity Reaction Status Date / Time ciprofloxacin [CIPROFLOXACIN] AdvReac Intermediate DIARRHEA Verified 04/20/20 16:07 Assessment & Plan Assessment & Plan (1) Neurocognitive disorder: Status: Acute Code(s): R41.9 - Unspecified symptoms and signs involving cognitive functions and awareness Assessment and Plan: d/c tomm with support services (2) Bipolar depression: Status: Acute Code(s): F31.9 - Bipolar disorder, unspecified Assessment and Plan: cont depakote risp Greater than 50% of the session was spent on counseling and/or coordination of care
--- NOTE | 2020-07-14 00:27 | PC.NURSE ---
Patient was in the kitchen playing with his armband that he had removed for the second time this shift. He was trying to put the armband into a small bowl with some crayons. This brief writer had given patient's his night medications and made sure he did not need to use the bathroom. Patient was seen at 2215 in the kitchen. At 2220 a female patient came to this brief writer and stated There is a male patient standing over my bed and I came to get someone . T/w went into the patient's hospital room 512-1 and found a male patient, fully dressed, laying on the bed in 512-1with some of the bedding partially covering him. This brief writer was able to redirect this patient into his room and assist him onto his bed and put bed covers over him, up to his chest and patient was able to stay in bed. Patient was rechecked every 5 minutes until the end of the shift. The behavior was passed on in report.
[2020-07-14 06:20] VITALS: BP 102/63; PULSE 50; RESP 16; TEMP 36.6; O2SAT 100
[2020-07-14 08:26] VITALS: BP 111/62; PULSE 61
[2020-07-14] MEDS: risperiDONE 2 MG TABLET PO (08:26)
[2020-07-14] MEDS: Omeprazole 20 MG CAPSULE.DR PO (08:26)
[2020-07-14] MEDS: Divalproex Sodium 500 MG TABLET.DR PO (08:26)
[2020-07-14] MEDS: LORazepam 0.5 MG TABLET PO ×2 (08:26→13:31)
[2020-07-14] MEDS: Escitalopram Oxalate 10 MG TABLET PO (08:26)
[2020-07-14] MEDS: lisinopriL 5 MG TABLET PO (08:26)
[2020-07-14] MEDS: Ferrous Sulfate 324 MG TABLET.DR PO (08:26)
[2020-07-14] MEDS: Donepezil HCl 5 MG TABLET PO (08:27)
--- NOTE | 2020-07-14 22:00 | P.DS_ITS ---
DS: Providers Provider Date of Service: 08/07/20 Date of admission: 06/25/20 16:46 Primary care physician: None Physician Consults: 07/02/20 10:28 Consult to Neurology Routine Consulting Provider: Kayleigh Walter Reason for consultation: early onset dementia ? further recommendations Has provider been notified: No DS: Diagnosis Discharge Diagnosis (1) Neurocognitive disorder: Status: Acute (2) Bipolar depression: Status: Acute DS: Medications Discharge Medications Home Medications: Home Medications Medication Instructions Recorded Confirmed albuterol sulfate 90 mcg/actuation 2 puff INHALATION .4 TIMES A DAY 04/20/20 06/20/20 aerosol inhaler PRN g atorvastatin 40 mg PO BEDTIME 06/20/20 06/20/20 donepezil 5 mg PO DAILY 06/20/20 06/20/20 lisinopril 5 mg PO DAILY 06/20/20 06/20/20 Previous Rx's Medication Instructions Recorded divalproex 500 mg PO BID 30 Days #60 tab 07/14/20 escitalopram oxalate 10 mg PO DAILY 30 Days #30 tab 07/14/20 ferrous sulfate 324 mg PO DAILY 30 Days #30 tab 07/14/20 hydroxyzine pamoate 50 mg PO BID PRN #60 cap 07/14/20 lorazepam 0.5 mg PO TID 30 Days #90 tab 07/14/20 lorazepam 1 mg PO DAILY PRN 30 Days #30 tab 07/14/20 melatonin 3 mg PO BEDTIME 30 Days #30 tab 07/14/20 pantoprazole 40 mg PO DAILY 30 Days #30 tab 07/14/20 risperidone 2 mg PO BID 30 Days #60 tab 07/14/20 risperidone [Risperdal] 1 mg PO BID PRN #30 tab 07/14/20 trazodone 100 mg PO BEDTIME 30 Days #30 tab 07/14/20 Discharge Plan Discharge Patient Disposition: Home Health Service Referrals: Psych Prescriber: Bharat Rodriguez APRN ([facility]) [Other] - 07/21/20 10:00 am (At office ) Therapist: Jose Vang ([facility]) [Other] - 07/21/20 11:15 am Dawna PLATT [Other] - 07/15/20 ([phone]) JUDY DANIELSON [Other] - 07/20/20 9:00 am Jose Ng MD [Physician] - 07/28/20 9:40 am Discharge Medications: New escitalopram oxalate 10 mg Tablet 10 mg PO DAILY 30 Days Qty: 30 RF: 0 ferrous sulfate 324 mg (65 mg iron) Tablet,Delayed Release (Dr/Ec) 324 mg PO DAILY 30 Days Qty: 30 RF: 0 divalproex 500 mg Tablet,Delayed Release (Dr/Ec) 500 mg PO BID 30 Days Qty: 60 RF: 0 risperidone 2 mg Tablet 2 mg PO BID 30 Days Qty: 60 RF: 0 lorazepam 0.5 mg Tablet 0.5 mg PO TID 30 Days Qty: 90 RF: 0 trazodone 100 mg tablet 100 mg PO BEDTIME 30 Days Qty: 30 RF: 0 Continued atorvastatin 40 mg Tablet 40 mg PO BEDTIME RF: 0 donepezil 5 mg Tablet 5 mg PO DAILY RF: 0 lisinopril 5 mg Tablet 5 mg PO DAILY RF: 0 melatonin 3 mg Tablet 3 mg PO BEDTIME 30 Days Qty: 30 RF: 0 pantoprazole 40 mg Tablet,Delayed Release (Dr/Ec) 40 mg PO DAILY 30 Days Qty: 30 RF: 0 albuterol sulfate [ProAir HFA] 90 mcg/actuation HFA aerosol inhaler 2 puff inhalation .4 TIMES A DAY PRN (Reason: Shortness Of Breath Or Wheezing) RF: 0 Changed hydroxyzine pamoate 50 mg Capsule 50 mg PO BID PRN (Reason: Anxiety) Qty: 60 RF: 0 lorazepam 1 mg Tablet 1 mg PO DAILY PRN (Reason: Anxiety) 30 Days Qty: 30 RF: 0 risperidone [Risperdal] 1 mg Tablet 1 mg PO BID PRN (Reason: Psychosis) Qty: 30 RF: 0 Discontinued divalproex 250 mg Tablet,Delayed Release (Dr/Ec) 250 mg PO BID RF: 0 risperidone [Risperdal] 1 mg Tablet 1 mg PO Q6H PRN (Reason: Agitation) RF: 0 escitalopram oxalate 5 mg Tablet 5 mg PO DAILY RF: 0 mirtazapine 7.5 mg Tablet 7.5 mg PO BEDTIME RF: 0 Discharge Orders: Discharge Order (Routine); Ordered 07/14/20 Ordered By: Cristhian Martin Diet: advance to usual diet Activity on Discharge: As tolerated Stand Alone Forms: Community Support Other Ambulatory Orders: Ammonia (Routine) Timeframe: 1 Week Facility: [facility] - Location: Laboratory Ordered By: Cristhian Martin Comprehensive Met. Panel (Routine) Timeframe: 1 Week Facility: [facility] - Location: Laboratory Ordered By: Cristhian Martin C Reactive Protein (Routine) Timeframe: 1 Week Facility: [facility] - Location: Laboratory Ordered By: Cristhian Martin Valproate (Routine) Timeframe: 1 Week Facility: [facility] - Location: Laboratory Ordered By: Cristhian Martin Visit Report Forms: Patient Portal Discharge page Care Plan Goals: to have more stable mood no self harm to remain home as long as possible Health Concerns: bipolar disorder depression hallucinations recent suicidal statements dementia ? frontal temporal Plan of Treatment: medication supervision therapy neurological follow up home care services vna may need eventual fdc facility placement Discharge Date/Time: 07/14/20 14:15 Mental Status Exam Mental Status Exam Patient Orientation: Person Level of Consciousness: Awake and Alert Patient Behavior: Guarded, Cooperative, Passive, Wandering, Anxious, Distractible, Confused and Pacing Mood Description: Depressed and Apprehensive Affect Description: Anxious, Flat and Apprehensive Patient Cognition Impaired: Yes Ability to Follow Directions: Poor Speech Pattern: Difficulty Finding Words, Spontaneous Speech, Soft-Spoken and Cofabulation Memory Description: Remote Impaired, Immediate Impaired, [facility] Impaired, Episodic Impaired, Recent Impaired, Working Impaired and Semantic Impaired Hallucinations: Auditory Thought Process: Disoriented, Illogical, Distracted, Rumination and Slowed Thinking Thought Content: positive for Disoriented, positive for Perseveration, positive for Poverty of Content, negative for Suicidal Ideation and negative for Homicidal Ideation Depressive Symptoms: Insomnia, Increased Irritability, Difficulty Sleeping, Crying Spells and Unhappiness Judgement: Poor Data Data Completed and Pending Completed studies during hospitalization [Text1]: 07/13/20 07/13/20 07/13/20 07:50 07:50 07:50 WBC 6.4 RBC 4.03 L Hgb 12.7 L Hct 39.0 L MCV 96.8 MCH 31.5 MCHC 32.6 RDW 13.2 Plt Count 208 MPV 9.5 Immature Gran % (Auto) 0.2 Neut % (Auto) 43.8 L Lymph % (Auto) 40.0 Gordon % (Auto) 9.7 Eos % (Auto) 5.5 H Baso % (Auto) 0.8 Lymph # (Auto) 2.6 Gordon # (Auto) 0.6 Eos # (Auto) 0.4 Baso # (Auto) 0.1 Abs Immat Gran (auto) 0.01 Absolute Neuts (auto) 2.8 Absolute Nucleated RBC 0.000 Nucleated RBC % (auto) 0.0 Iron 129 TIBC 261 % Saturation 49 Unsat Iron Binding 132 Valproic Acid 59.3 06/21/20 Unknown Urine clean catch - Clean Catch Midstream Urine Culture - Final Imaging Diagnostic Imaging Impressions Head CT 07/09/20 00:00 IMPRESSION: No acute intracranial process seen. DS: Summary Hospital Course Hospital Course: HPI Chief Complaint: Bipolar DX SI Sources of Information: patient interviewed, chart reviewed and crisis/core team assessment reviewed HPI Narrative: Pt with worsening dementia with depression and sib reports to providers using knives at home to threaten self injury pt is too confused to report Past Psychiatric History: hx of prior psychiatric hospitalizations for same - here at [facility] including a significant OD on benadryl in 2016 with behavioral/delerium- in which he was aggressive Medical Evaluation Reviewed: Yes PMF Medical History Alzheimer disease Alzheimer's dementia Anxiety Asthma Benign essential hypertension Bipolar depression BPH (benign prostatic hyperplasia) GERD (gastroesophageal reflux disease) High cholesterol Insomnia Lumbar degenerative disc disease Neurocognitive disorder Pure hypercholesterolemia Smoker Surgical History History of discectomy History of removal of cyst History of surgery Narrative: lives at home with Diagnostics Vital Signs (24Hr):Vital Signs - 24 hr 06/25/20 16:28 06/25/20 18:00 06/25/20 22:45 Temperature 97.8 F 98.7 F Pulse Rate 73 101 H Respiratory Rate 18 16 Blood Pressure 122/80 120/76 Pulse Oximetry 99 06/26/20 06:05 06/26/20 08:39 Temperature 97.1 F Pulse Rate 77 77 Respiratory Rate 16 Blood Pressure 153/67 H 153/67 H Pulse Oximetry 100 Body Mass Index 27.4 Home Medications Acetaminophen (Acetaminophen 325 Mg Tablet) 650 mg PO Q6H PRN PRN Reason: Headache/Pain Mild Scale (1-3) Al Hydroxide/Mg Hydroxide (Magnesium Hydrox/Alum Hydrox 30 Ml Oral.Susp) 30 ml PO Q6H PRN PRN Reason: Heartburn/Nausea Albuterol Sulfate (Albuterol Sulfate 90 Mcg 8 Gm Inhaler) 2 puff INHALE .4 TIMES A DAY PRN PRN Reason: Shortness Of Breath Or Wheezing Atorvastatin Calcium (Atorvastatin Calcium 40 Mg Tablet) 40 mg PO BEDTIME [facility] Last Admin: 06/25/20 21:10 Dose: 40 mg Documented by: Cefuroxime Axetil (Cefuroxime Axetil 250 Mg Tablet) 250 mg PO Q12H [facility] Stop: 06/28/20 08:14 Last Admin: 06/26/20 08:40 Dose: 250 mg Documented by: Divalproex Sodium (Divalproex Sodium 250 Mg Tablet.) 250 mg PO BID [facility] Last Admin: 06/26/20 08:36 Dose: 250 mg Documented by: Donepezil HCl (Donepezil Hcl 5 Mg Tablet) 5 mg PO DAILY [facility] Last Admin: 06/26/20 08:36 Dose: 5 mg Documented by: Escitalopram Oxalate (Escitalopram Oxalate 5 Mg Tablet) 5 mg PO DAILY [facility] Last Admin: 06/26/20 08:35 Dose: 5 mg Documented by: Hydroxyzine HCl (Hydroxyzine Hcl 50 Mg Tablet) 50 mg PO Q4H PRN PRN Reason: Anxiety Last Admin: 06/26/20 00:22 Dose: 50 mg Documented by: Hydroxyzine HCl (Hydroxyzine Hcl 25 Mg Tablet) 25 mg PO BEDTIME PRN PRN Reason: Anxiety Last Admin: 06/25/20 20:15 Dose: 25 mg Documented by: Lisinopril (Lisinopril 5 Mg Tablet) 5 mg PO DAILY [facility]; Protocol Last Admin: 06/26/20 08:39 Dose: 5 mg Documented by: Magnesium Hydroxide (Milk Of Magnesia 30 Ml Oral.Susp) 30 ml PO DAILY PRN PRN Reason: Constipation Melatonin (Melatonin 3 Mg Tablet) 3 mg PO BEDTIME [facility] Last Admin: 06/25/20 21:10 Dose: 3 mg Documented by: Mirtazapine (Mirtazapine 7.5 Mg Tablet) 7.5 mg PO BEDTIME [facility] Last Admin: 06/25/20 21:10 Dose: 7.5 mg Documented by: Omeprazole (Omeprazole 20 Mg Capsule.) 20 mg PO DAILY [facility] Last Admin: 06/26/20 08:35 Dose: 20 mg Documented by: Risperidone (Risperidone 1 Mg Tablet) 1 mg PO BID RAMON Last Admin: 06/26/20 08:36 Dose: 1 mg Documented by: Risperidone (Risperidone 1 Mg Tablet) 1 mg PO Q6H PRN PRN Reason: Agitation Last Admin: 06/26/20 18:40 Dose: 1 mg Documented by: Trazodone HCl (Trazodone Hcl 50 Mg Tablet) 50 mg PO BEDTIME PRN PRN Reason: Insomnia Allergies Allergies Allergy/AdvReac Type Severity Reaction Status Date / Time ciprofloxacin [CIPROFLOXACIN] AdvReac Intermediate DIARRHEA Verified 04/20/20 16:07 Mental Status Exam Mental Status Exam Narrative: dressed in celia- looking donw, tearful Patient Appearance: Disheveled Patient Orientation: Person Level of Consciousness: Awake Patient Behavior: Passive and Confused Mood Description: Depressed Affect Description: Depressed Patient Cognition Impaired: Yes Ability to Follow Directions: Poor Speech Pattern: Garbled and Mumbled Hallucinations: Auditory Delusions: Paranoid Ideation Thought Process: Disoriented Thought Content: positive for Disoriented Depressive Symptoms: Increased Anxiety, Unhappiness and Thoughts of /Suicide Judgement: Poor Assessment & Plan Assessment & Plan (1) Alzheimer's dementia: Status: Acute Code(s): G30.9 - Alzheimer's disease, unspecified; F02.80 - Dementia in other diseases classified elsewhere without behavioral disturbance Assessment and Plan: continue to monitor mental status- he seems very declined re cognitive (2) Bipolar depression: Status: Acute Code(s): F31.9 - Bipolar disorder, unspecified Assessment and Plan: worsening depression in setting of alz dementia decline Informed Consent: does not understand Reason for continued inpatient stay Substantial Risk for: harm to self, inability to function and rapid decompensation HOSPITAL COURSE THE PATIENT WAS ADMITTED FROM THE EMERGENCY ROOM BY DR. MARIO PARSON PATIENT WAS NOTED TO BE QUITE CONFUSED WITH POOR LANGUAGE HE COULD UNDERSTAND SIMPLE REQUEST BUT HAD A GREAT DEAL OF DIFFICULTY WITH EXPRESSIVE LANGUAGE AND NEEDED CUING FOR MUCH FUNCTIONING. PATIENT WAS DEPRESSED ANXIOUS AGITATED INTRUSIVE AUDITORY HALLUCINATIONS. THERE IS A HISTORY OF BIPOLAR DISORDER AND THE PATIENT'S CASE WAS REVIEWED EXTENSIVELY WITH HIS DOES HAVE SOME HOME HEALTH SERVICES FOR THE PATIENT. PATIENT WAS INITIALLY DEPRESSED ANXIOUS WITH HALLUCINATIONS AND AT TIMES INTRUSIVE SELF-HARMING THOUGHTS AND GESTURES THE PATIENT DID HAVE A NEUROLOGY CONSULTATION BY DR. 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 WAS EXPLAINED TO HER THAT THIS IS A GRADUALLY DETERIORATING CONDITION PATIENT'S UNDERSTOOD THIS AND ONCE HE WAS MORE STABLE WAS WILLING TO ACCEPT HIM HOME. THE PATIENT WAS REFERRED FOR ONGOING NEUROLOGY FOLLOW-UP WITH DR. WALTER THE PATIENT'S RISPERDAL WAS INCREASED DURING THE HOSPITALIZATION TO 2 MG TWICE A DAY WHICH WAS HELPFUL FOR PSYCHOTIC AGITATION IMPULSIVITY AND SELF-HARMING BEHAVIOR AND THOUGHTS DEPAKOTE WAS INCREASED TO 500 MG TWICE A DAY ESCITALOPRAM/LEXAPRO WAS INCREASED TO 10 MG DAILY LORAZEPAM CHANGED TO 0.5 MG 3 TIMES A DAY AND TRAZODONE 100 MG AT BEDTIME. MIRTAZAPINE WAS DISCONTINUED HEAD CT SCAN WAS READ UNREMARKABLE BY RADIOLOGY DR. MCCLURE FROM NEUROLOGY FELT THERE WAS FRONTAL TEMPORAL VOLUME LOSS. I DID DISCUSS WITH DR FLORES THE POSSIBILITY OF AN MRI PET SCAN OR LP HE DID NOT FEEL ANY OF THOSE WERE INDICATED AT THIS TIME BUT WOULD BE SEEING THE PATIENT AN OUTPATIENT THE PATIENT WAS NEGATIVE FOR LYME FOR SYPHILIS B12 TSH UNREMARKABLE PATIENTS WERE SYMPTOMS WERE IN BETTER CONTROL TIME OF DISCHARGE WAS COOPERATIVE HIS FELT COMFORTABLE IN TAKING HIM HOME WITH SUPPORTIVE SERVICES. C DISCHARGE PLAN SECTION FOR FULL INFORMATION Time Spent with Patient Time attestation: Total time spent providing and/or coordinating discharge services:
== END 2020-07-14 14:15 | disposition home health service (06) | DRG 885 ==
LOC: HO.ED 20:48 → HO.PM5 06-25 17:07
PROVIDERS: Clinical Nurse Specialist Psychiatric/Mental Health, Adult; Nurse Practitioner Primary Care; Physician Assistant; Admitting Provider Psychiatry & Neurology Psychiatry; Emergency Provider Emergency Medicine; Visit Provider Psychiatry & Neurology Psychiatry
DX: F31.9 Bipolar disorder, unspecified (principal); F02.81 Dementia in other diseases classified elsewhere, unspecified severity, with behavioral disturbance; R45.851 Suicidal ideations; N39.0 Urinary tract infection, site not specified; K21.9 Gastro-esophageal reflux disease without esophagitis; G30.9 Alzheimer's disease, unspecified; G47.00 Insomnia, unspecified; R00.0 Tachycardia, unspecified; I10 Essential (primary) hypertension; Z20.822 Contact with and (suspected) exposure to COVID-19; F17.210 Nicotine dependence, cigarettes, uncomplicated; Z79.899 Other long term (current) drug therapy
CPT/HCPCS: 36415; 70450; 80053; 80061; 80164; 80307; 80320; 81001; 82140; 83540; 85025; 87086; 87635; 90792; 93005; 99231; 99232; 99285

== ENCOUNTER 2020-10-30 12:06 | Outpatient (REF) | payer OTHER, SELFPAY ==
[2020-10-30 12:25] LABS: MANUAL DIFF FLAG NO
[2020-10-30 12:29] LABS: Basophils Percent Auto 0.7 % (0-2); Eosinophils Absolute Auto 0.1 X10*3/uL (0.0-0.4); Eosinophils Percent Auto 1.8 % (0-4); Hematocrit 40.7 % (42-52); Imm Gran Abs Auto 0.01 X10*3/uL (0.00-0.03); Imm Gran Pct Auto 0.2 % (0.0-0.4); Lymphocytes Absolute Auto 1.7 X10*3/uL (1.2-4.9); Lymphocytes Percent Auto 37.6 % (20-40); Mean Corpuscular HGB Conc 31.9 g/dl (31.0-36.0); Mean Corpuscular Hemoglobin 31.9 pg (27.0-33.0); Monocytes Absolute Auto 0.5 X10*3/uL (0.1-1.2); Monocytes Percent Auto 11.4 % (2-11); Neutrophils Absolute Auto 2.2 X10*3/uL (2.0-8.3); Neutrophils Percent Auto 48.3 % (45-73); Platelet Count 191 X10*3/uL (160-400); Red Blood Count 4.07 X10*6/uL (4.60-5.80); Red Cell Distribution Width 13.9 % (11.0-16.0); White Blood Count 4.5 X10*3/uL (4.8-10.8)
[2020-10-30 12:44] LABS: Ammonia 51 umol/L (13-55)
[2020-10-30 12:55] LABS: Alanine Aminotransferase 18 U/L (0-40); Albumin Level 3.8 g/dL (3.5-5.0); Alkaline Phosphatase 42 U/L (39-117); Anion Gap 12 (12-20); Aspartate Amino Transferase 24 U/L (5-37); Bilirubin Total 0.2 mg/dL (0.0-1.0); Blood Urea Nitrogen 17 mg/dL (9-16); C Reactive Protein 0.09 mg/dL (< or = 0.50); Calcium 9.4 mg/dL (8.4-10.2); Carbon Dioxide 28 mmol/L (22-29); Chloride 105 mmol/L (96-108); Estimated Glomerular Filt Rate > 60; Glucose Random 70 mg/dL (60-115); Potassium 4.1 mmol/L (3.3-5.1); Sodium 141 mmol/L (135-145); Total Protein 6.5 g/dL (6.5-8.0)
[2020-10-30 13:01] LABS: B Type Natriuretic Peptide 97 pg/mL (<100)
[2020-10-30 13:16] LABS: TSH reflex Free T4 1.27 uIU/mL (0.32-4.0)
[2020-10-30 13:33] LABS: Valproate 84.2 mcg/mL (50.0-100.0)
== END 2020-10-30 12:07 | disposition home or self-care (01) ==
LOC: HO.LAB 12:06
PROVIDERS: Psychiatry & Neurology Psychiatry; PCP Internal Medicine; Visit Provider Internal Medicine
DX: F31.9 Bipolar disorder, unspecified (principal); R41.9 Unspecified symptoms and signs involving cognitive functions and awareness; R60.9 Edema, unspecified; Z79.899 Other long term (current) drug therapy
CPT/HCPCS: 36415; 80053; 80164; 82140; 83880; 84443; 85025; 86140

== ENCOUNTER 2021-12-02 18:18 | Inpatient (IN) | payer OTHER, SELFPAY ==
--- NOTE | ~2021-12-02 | CT_ITS ---
EXAMINATION: CT ABDOMEN AND PELVIS WITHOUT CONTRAST CLINICAL INFORMATION: Cellulitis. COMPARISON: 04.12.2013 TECHNIQUE: Multidetector volumetric imaging was performed from the superior aspect of the liver through the pubic symphysis. Sagittal and coronal reformatted images were obtained on the technologist's workstation. This CT examination was performed using dose optimization techniques as appropriate, variously including the following: *Automated exposure control *Adjustment of mA and/or kV according to patient size (this includes techniques or standardized protocols for targeted exams where dose is matched to indication/reason for exam; i.e. extremities or head) *Use of iterative reconstruction technique DLP: 1075 mGy-cm FINDINGS: LUNG BASES: The visualized lung bases are unremarkable. LIVER, GALLBLADDER, AND BILIARY TREE: The liver is normal in size, shape, and attenuation. No focal hepatic lesion or biliary ductal dilatation is present. Gallbladder unremarkable. PANCREAS: Unremarkable. SPLEEN: Unremarkable. ADRENAL GLANDS: Unremarkable. KIDNEYS AND URETERS: The kidneys are normal in size, shape, and attenuation. No hydronephrosis, hydroureter, or calculi seen. No perinephric stranding. BLADDER: Contains a Figueroa catheter. GASTROINTESTINAL TRACT: Large rectal stool burden, with stool ball measuring up to 9.1 x 2.7 cm transaxially and 12.4 cm craniocaudally. No significant perirectal inflammation to suggest stercoral colitis. Normal appendix. Stomach and small bowel unremarkable. ABDOMINAL WALL: No significant hernia is appreciated. LYMPH NODES: Normal. VASCULAR: Aorta is atherosclerotic but nonaneurysmal. PELVIC VISCERA: Mild prostatomegaly with accompanying dystrophic calcifications. Scrotum and genitalia are unremarkable. No drainable collections. OSSEOUS STRUCTURES: No acute or suspicious osseous abnormalities. CT/CT abdomen pelvis wo con IMPRESSION: * No drainable collection or strong evidence of cellulitis with attention to the scrotum and perineum. * Large rectal stool burden without evidence of stercoral proctitis.
--- NOTE | ~2021-12-02 | CT_ITS ---
EXAMINATION: CT HEAD WITHOUT CONTRAST CLINICAL INFORMATION: Altered mental status. COMPARISON: Head CT 07/09/2020. TECHNIQUE: Contiguous axial imaging was performed from the skull base to vertex without intravenous administration of contrast. This CT examination was performed using dose optimization techniques as appropriate, variously including the following: *Automated exposure control *Adjustment of mA and/or kV according to patient size (this includes techniques or standardized protocols for targeted exams where dose is matched to indication/reason for exam; i.e. extremities or head) *Use of iterative reconstruction technique DLP: 1134 mGy-cm. FINDINGS: There is no intracranial hemorrhage, large infarction, or mass lesion. There is no extra-axial collection. There is mild degree of brain parenchymal volume loss with prominence of the ventricles and sulci. The visualized paranasal sinuses and mastoid air cells are clear. CT/CT head/brain wo con IMPRESSION: No acute intracranial abnormality.
--- NOTE | ~2021-12-02 | XR_ITS ---
EXAMINATION: XR CHEST CLINICAL INFORMATION: Lethargy COMPARISON: Chest x-ray on 06/08/2020 TECHNIQUE: Frontal view of the chest was obtained. FINDINGS: No significant abnormality is noted involving the heart, lungs, mediastinum, bony thorax or soft tissues. XR/XR chest 1V IMPRESSION: No acute disease.
[2021-12-02 18:42] VITALS: BP 103/68; PULSE 58; RESP 16; TEMP 36.9; O2SAT 97; BMI 24.9
--- NOTE | 2021-12-02 18:43 | ED_ITS ---
HPI - General Adult General Chief complaint: Altered Mental Status Stated complaint: lethargy and dehydration Time Seen by Provider: 12/02/21 20:52 Source: patient and EMS Mode of arrival: EMS Limitations: altered mental status (Dementia per baseline) History of Present Illness HPI narrative: 56-year-old male presents via EMS with reports of increased lethargy, decreased urine output, and change in behavior. Patient has dementia per baseline and is not able to answer any questions logically. Family is at bedside. Onset (ago): day(s) (2) Severity: moderate Treatments prior to arrival: none Related Data Home Medications Medication Instructions Recorded Confirmed lisinopril 5 mg tablet 5 mg PO DAILY 06/20/20 10/06/21 Previous Rx's Medication Instructions Recorded hydroxyzine pamoate 50 mg capsule 50 mg PO BID PRN Anxiety #60 caps 07/14/20 miscellaneous medical supply See Rx Instructions miscellaneous 11/30/20 .COMPLEX 30 days #200 ea miscellaneous medical supply See Rx Instructions miscellaneous 11/30/20 .COMPLEX 30 days #200 ea underpads 30 X 30 #100 ea 11/30/20 HOSPITAL BED #1 ea 01/22/21 cyanocobalamin (vitamin B-12) 1,000 mcg IM Q4W 4 weeks #1 ea 04/19/21 1,000 mcg/mL injection kit miscellaneous medical supply See Rx Instructions miscellaneous 05/26/21 .COMPLEX use on rash on bottom due to incontinence #2 ea trazodone 100 mg tablet 100 mg PO BEDTIME 30 days #30 tabs 09/28/21 TRANSPORT WHEELCHAIR #1 ea 10/06/21 pantoprazole 40 mg tablet,delayed 40 mg PO DAILY 90 days #90 tabs 10/07/21 release risperidone 2 mg tablet 2 mg PO BID 30 days #60 tabs 11/15/21 Allergies Allergy/AdvReac Type Severity Reaction Status Date / Time ciprofloxacin [CIPROFLOXACIN] AdvReac Intermediate DIARRHEA Verified 10/07/21 04:45 Review of Systems Review of Systems: Yes Unobtainable due to mental status PMFSH Past Medical History Attestation statement: The following information was validated with the patient. Source: old records reviewed Medical History Alzheimer disease Anxiety Asthma Benign essential hypertension Bipolar depression BPH (benign prostatic hyperplasia) GERD (gastroesophageal reflux disease) Insomnia Lumbar degenerative disc disease Pure hypercholesterolemia Smoker Surgical History History of discectomy History of removal of cyst History of surgery Family History Family History Father Alzheimers disease Chronic mental illness Mother Hypertension Meningitis Sister Heart disease Hypertension Maternal Grandmother Hypertension Diabetes Social History Social History Household Members: None Housing: Apartment Do you presently have visiting nurse or other home services: No Alcohol intake: current Alcohol intake frequency: does not drink Patient Tobacco Use Status: Former Tobacco user Second Hand Smoke Exposure: No Advance Directives: Yes Advance Directives on File: Yes Advance Directives Date on File: 07/15/20 service: No Current occupational status: disabled Sexual orientation: Straight/Heterosexual Cognitive needs: Yes Hearing needs: No Vision needs: No Physical Exam ED Vital Signs: Vital Signs - 24 hr 12/02/21 18:42 12/02/21 19:36 12/02/21 21:31 Temperature 98.5 F Pulse Rate 58 52 50 Respiratory Rate 16 12 13 Blood Pressure 103/68 109/67 124/74 Pulse Oximetry 97 96 95 Oxygen Delivery Method Room Air Room Air Room Air BMI result Body Mass Index 24.9 Appearance: Alert. Unable to make his needs known. Eyes: Pupils equal, round and reactive to light. ENT: Pharynx normal. Neck: Normal inspection. Neck supple. No cervical lymphadenopathy. CVS: Bradycardic heart rate and rhythm. Apical pulse equal pulses to extremities. Respiratory: No respiratory distress. Breath sounds normal. Abdomen: Soft and nontender. Skin: Malodorous Excoriation and blistering noted to testicles, buttocks and penis. Normal skin color. Normal skin turgor. Extremities: No lower extremity edema. Moves all extremities against resistance. Neuro: No motor deficit. No sensory deficit. Cranial nerves 2-12 intact. Course Course Course Narrative: 56-year-old male presents via EMS for change in behavior, skin rash, and lethargy. Patient has dementia, is unable to make his needs known, and needs 24 hour care which is family provides. Family is at bedside. They noted that he had not had much to eat or drink, that his diapers have been dry, that he has a blistery rash to his groin and buttocks, and that his behavior has changed. He is normally an abusive and nonsensical verbally aggressive person. States that he has been calm and sleepy. Will order labs, CT scan of head, give L of fluid, ceftriaxone, Diflucan, and herpetic panel. 21:40 Dr. Pate at bedside to assess patient for suspected herpetic infection verses candidiasis and cellulitis. Most likely to be candidiasis with cellulitis. Will order Diflucan 300 mg and ceftriaxone [address] scan of head still pending. 23:13 CT scan negative for acute findings. Discussion with hospitalist, plan for admission for cellulitis, candidiasis, and altered mental status. Hospitalist is requesting CT scan of abdomen pelvis with testicles. Consultations Consultation #1: [place] Time: 23:13 Medical Decision Making Differential Diagnosis Differential Diagnosis: Sepsis, cellulitis, UTI, pneumonia Medical Records Medical records reviewed: Yes I reviewed the patient's medical records. Lab Data Lab results reviewed: Yes I reviewed the patient's lab results. Result diagrams: 12/02/21 19:06 12/02/21 19:05 Labs: Lab Results 12/02/21 12/02/21 12/02/21 Range/Units 19:00 19:00 19:05 WBC (4.8-10.8) X10*3/uL RBC (4.60-5.80) X10*6/uL Hgb (14.0-18.0) g/dl Hct (42.0-52.0) % MCV (80.0-98.0) fL MCH (27.0-33.0) pg MCHC (31.0-36.0) g/dl RDW (11.0-16.0) % Plt Count (160-400) X10*3/uL MPV (9.4-12.4) fL Immature Gran % (Auto) (0.0-0.4) % Neut % (Auto) (45-73) % Lymph % (Auto) (20-40) % [place] % (Auto) (2-11) % Eos % (Auto) (0-4) % Baso % (Auto) (0-2) % Lymph # (Auto) (1.2-4.9) X10*3/uL [place] # (Auto) (0.1-1.2) X10*3/uL Eos # (Auto) (0.0-0.4) X10*3/uL Baso # (Auto) (0.0-0.2) X10*3/uL Abs Immat Gran (auto) (0.00-0.03) X10*3/uL Absolute Neuts (auto) (2.0-8.3) x10*3/uL Absolute Nucleated RBC (0.0-0.012) X10*3/uL Nucleated RBC % (auto) (0.0-0.2) /100WBC Sodium 148 H (135-145) mmol/L Potassium 3.9 (3.3-5.1) mmol/L Chloride 118 H (96-108) mmol/L Carbon Dioxide 22 (22-29) mmol/L Anion Gap 12 (12-20) BUN 30 H (9-16) mg/dL Creatinine 0.99 (0.5-1.4) mg/dL Estim Creat Clear Calc 71.6 Estimated GFR > 60 Random Glucose 108 D (60-115) mg/dL Calcium 8.6 D (8.4-10.2) mg/dL Magnesium 2.5 (1.6-2.6) mg/dL Troponin I High Sens (<3.5-35.0) ng/L Urine Color Urine Appearance Urine pH (5.0-8.0) Ur Specific [place] (1.005-1.025) Urine Protein (NEG-TRACE) MG/DL Urine Glucose (UA) (NEG) MG/DL Urine Ketones (NEG) MG/DL Urine Blood (NEG) Urine Nitrite (NEG) Ur Leukocyte Esterase (NEG) Urine RBC (0) /HPF Urine WBC (0-4) /HPF Ur Squamous Epith Cells /LPF Urine Bacteria /LPF Urine Opiates Screen (Not Detect) Urine Fentanyl Screen (Not Detect) Ur Barbiturates Screen (Not Detect) Ur Phencyclidine Scrn (Not Detect) Ur Amphetamines Screen (Not Detect) U Benzodiazepines Scrn (Not Detect) Urine Cocaine Screen (Not Detect) U Marijuana (THC) Screen (Not Detect) Ethyl Alcohol mg/dL COVID-19 (EMMETT) Negative (Negative) COVID-19 Clin Com See Note Influenza Type A (SHREE) Negative (Negative) Influenza Type B (SHREE) Negative (Negative) Influenza A & B Note See Note 12/02/21 12/02/21 12/02/21 Range/Units 19:05 19:06 19:06 WBC 8.8 (4.8-10.8) X10*3/uL RBC 3.98 L (4.60-5.80) X10*6/uL Hgb 12.6 L (14.0-18.0) g/dl Hct 39.6 L (42.0-52.0) % MCV 99.5 H (80.0-98.0) fL MCH 31.7 (27.0-33.0) pg MCHC 31.8 (31.0-36.0) g/dl RDW 14.1 (11.0-16.0) % Plt Count 222 (160-400) X10*3/uL MPV 9.3 L (9.4-12.4) fL Immature Gran % (Auto) 0.2 (0.0-0.4) % Neut % (Auto) 57.9 (45-73) % Lymph % (Auto) 27.6 (20-40) % [place] % (Auto) 10.9 (2-11) % Eos % (Auto) 3.1 (0-4) % Baso % (Auto) 0.3 (0-2) % Lymph # (Auto) 2.4 (1.2-4.9) X10*3/uL [place] # (Auto) 1.0 (0.1-1.2) X10*3/uL Eos # (Auto) 0.3 (0.0-0.4) X10*3/uL Baso # (Auto) 0.0 (0.0-0.2) X10*3/uL Abs Immat Gran (auto) 0.02 (0.00-0.03) X10*3/uL Absolute Neuts (auto) 5.1 (2.0-8.3) x10*3/uL Absolute Nucleated RBC 0.000 (0.0-0.012) X10*3/uL Nucleated RBC % (auto) 0.0 (0.0-0.2) /100WBC Sodium (135-145) mmol/L Potassium (3.3-5.1) mmol/L Chloride (96-108) mmol/L Carbon Dioxide (22-29) mmol/L Anion Gap (12-20) BUN (9-16) mg/dL Creatinine (0.5-1.4) mg/dL Estim Creat Clear Calc Estimated GFR Random Glucose (60-115) mg/dL Calcium (8.4-10.2) mg/dL Magnesium (1.6-2.6) mg/dL Troponin I High Sens 6.4 (<3.5-35.0) ng/L Urine Color Urine Appearance Urine pH (5.0-8.0) Ur Specific [place] (1.005-1.025) Urine Protein (NEG-TRACE) MG/DL Urine Glucose (UA) (NEG) MG/DL Urine Ketones (NEG) MG/DL Urine Blood (NEG) Urine Nitrite (NEG) Ur Leukocyte Esterase (NEG) Urine RBC (0) /HPF Urine WBC (0-4) /HPF Ur Squamous Epith Cells /LPF Urine Bacteria /LPF Urine Opiates Screen (Not Detect) Urine Fentanyl Screen (Not Detect) Ur Barbiturates Screen (Not Detect) Ur Phencyclidine Scrn (Not Detect) Ur Amphetamines Screen (Not Detect) U Benzodiazepines Scrn (Not Detect) Urine Cocaine Screen (Not Detect) U Marijuana (THC) Screen (Not Detect) Ethyl Alcohol < 10 mg/dL COVID-19 (EMMETT) (Negative) COVID-19 Clin Com Influenza Type A (SHREE) (Negative) Influenza Type B (SHREE) (Negative) Influenza A & B Note 12/02/21 12/02/21 Range/Units 20:56 20:56 WBC (4.8-10.8) X10*3/uL RBC (4.60-5.80) X10*6/uL Hgb (14.0-18.0) g/dl Hct (42.0-52.0) % MCV (80.0-98.0) fL MCH (27.0-33.0) pg MCHC (31.0-36.0) g/dl RDW (11.0-16.0) % Plt Count (160-400) X10*3/uL MPV (9.4-12.4) fL Immature Gran % (Auto) (0.0-0.4) % Neut % (Auto) (45-73) % Lymph % (Auto) (20-40) % [place] % (Auto) (2-11) % Eos % (Auto) (0-4) % Baso % (Auto) (0-2) % Lymph # (Auto) (1.2-4.9) X10*3/uL [place] # (Auto) (0.1-1.2) X10*3/uL Eos # (Auto) (0.0-0.4) X10*3/uL Baso # (Auto) (0.0-0.2) X10*3/uL Abs Immat Gran (auto) (0.00-0.03) X10*3/uL Absolute Neuts (auto) (2.0-8.3) x10*3/uL Absolute Nucleated RBC (0.0-0.012) X10*3/uL Nucleated RBC % (auto) (0.0-0.2) /100WBC Sodium (135-145) mmol/L Potassium (3.3-5.1) mmol/L Chloride (96-108) mmol/L Carbon Dioxide (22-29) mmol/L Anion Gap (12-20) BUN (9-16) mg/dL Creatinine (0.5-1.4) mg/dL Estim Creat Clear Calc Estimated GFR Random Glucose (60-115) mg/dL Calcium (8.4-10.2) mg/dL Magnesium (1.6-2.6) mg/dL Troponin I High Sens (<3.5-35.0) ng/L Urine Color YELLOW Urine Appearance CLEAR Urine pH 5.5 (5.0-8.0) Ur Specific [place] >= 1.030 H (1.005-1.025) Urine Protein TRACE (NEG-TRACE) MG/DL Urine Glucose (UA) NEG (NEG) MG/DL Urine Ketones NEG (NEG) MG/DL Urine Blood 3+ H (NEG) Urine Nitrite NEG (NEG) Ur Leukocyte Esterase NEG (NEG) Urine RBC 10-14 H (0) /HPF Urine WBC 0 (0-4) /HPF Ur Squamous Epith Cells NONE /LPF Urine Bacteria 1+ /LPF Urine Opiates Screen Not Detected (Not Detect) Urine Fentanyl Screen POSITIVE H (Not Detect) Ur Barbiturates Screen Not Detected (Not Detect) Ur Phencyclidine Scrn Not Detected (Not Detect) Ur Amphetamines Screen Not Detected (Not Detect) U Benzodiazepines Scrn Not Detected (Not Detect) Urine Cocaine Screen Not Detected (Not Detect) U Marijuana (THC) Screen Not Detected (Not Detect) Ethyl Alcohol mg/dL COVID-19 (EMMETT) (Negative) COVID-19 Clin Com Influenza Type A (SHREE) (Negative) Influenza Type B (SHREE) (Negative) Influenza A & B Note Imaging Data Chest x-ray: Attestation: I personally reviewed and interpreted this imaging study as follows: Radiologist's impression: EXAMINATION: XR CHEST CLINICAL INFORMATION: Lethargy COMPARISON: Chest x-ray on 06/08/2020 TECHNIQUE: Frontal view of the chest was obtained. FINDINGS: No significant abnormality is noted involving the heart, lungs, mediastinum, bony thorax or soft tissues. XR/XR chest 1V IMPRESSION: No acute disease. CT scan - head: Attestation: I personally reviewed and interpreted this imaging study as follows: Radiologist's impression: FINDINGS: There is no intracranial hemorrhage, large infarction, or mass lesion. There is no extra-axial collection. There is mild degree of brain parenchymal volume loss with prominence of the ventricles and sulci. The visualized paranasal sinuses and mastoid air cells are clear. CT/CT head/brain wo con IMPRESSION: No acute intracranial abnormality. ECG Data Attestation: I personally reviewed and interpreted this ECG as follows: Prior ECG tracings: available for review Interpretation: Vent. rate 56 BPM WA interval * ms QRS duration 86 ms QT/QTc 424/409 ms P-R-T axes * 20 37 Junctional rhythm Abnormal ECG When compared with ECG of 26-JUN-2020 14:59, Junctional rhythm has replaced Sinus rhythm 02-DEC-2021 19:04:38 Discharge Plan Discharge Clinical Impression: Altered mental status, Cellulitis, Candidiasis Patient Disposition: Admitted As Inpatient
--- NOTE | 2021-12-02 18:46 | ECG_ITS ---
Test Reason : ams Blood Pressure : / mmHG Vent. Rate : 056 BPM Atrial Rate : 000 BPM P-R Int : 000 ms QRS Dur : 086 ms QT Int : 424 ms P-R-T Axes : 000 020 037 degrees QTc Int : 409 ms Normal sinus rhythm Normal ECG When compared with ECG of 26-JUN-2020 14:59, Junctional rhythm has replaced Sinus rhythm Referred By: Pushpa Barrera Electronically Signed By:ELIAS MCCLURE
--- NOTE | 2021-12-02 19:08 | PC.NURSE ---
patient alert to name . history of dementia . skin warm and dry . lungs clear . awake and alert .
[2021-12-02 19:10] LABS: MANUAL DIFF FLAG NO
[2021-12-02 19:14] LABS: Basophils Percent Auto 0.3 % (0-2); Eosinophils Absolute Auto 0.3 X10*3/uL (0.0-0.4); Eosinophils Percent Auto 3.1 % (0-4); Hematocrit 39.6 % (42.0-52.0); Hemoglobin 12.6 g/dl (14.0-18.0); Imm Gran Abs Auto 0.02 X10*3/uL (0.00-0.03); Imm Gran Pct Auto 0.2 % (0.0-0.4); Lymphocytes Absolute Auto 2.4 X10*3/uL (1.2-4.9); Lymphocytes Percent Auto 27.6 % (20-40); Mean Corpuscular HGB Conc 31.8 g/dl (31.0-36.0); Mean Corpuscular Hemoglobin 31.7 pg (27.0-33.0); Mean Corpuscular Volume 99.5 fL (80.0-98.0); Mean Platelet Volume 9.3 fL (9.4-12.4); Monocytes Percent Auto 10.9 % (2-11); Neutrophils Absolute Auto 5.1 x10*3/uL (2.0-8.3); Neutrophils Percent Auto 57.9 % (45-73); Platelet Count 222 X10*3/uL (160-400); Red Blood Count 3.98 X10*6/uL (4.60-5.80); Red Cell Distribution Width 14.1 % (11.0-16.0); White Blood Count 8.8 X10*3/uL (4.8-10.8)
[2021-12-02 19:23] LABS: Ethanol < 10 mg/dL
[2021-12-02] MEDS: 0.9 % Sodium Chloride 1,000 ML 999 ML IVCONT (19:28)
[2021-12-02 19:31] LABS: Troponin-I High Sensitivity 6.4 ng/L (<3.5-35.0)
[2021-12-02 19:33] LABS: Influenza A Negative (Negative); Influenza B2 Negative (Negative)
[2021-12-02 19:36] VITALS: BP 109/67; PULSE 52; RESP 12; O2SAT 96
[2021-12-02 19:40] LABS: Anion Gap 12 (12-20); Blood Urea Nitrogen 30 mg/dL (9-16); Calcium 8.6 mg/dL (8.4-10.2); Carbon Dioxide 22 mmol/L (22-29); Chloride 118 mmol/L (96-108); Creatinine Clr Calc Pharmacy 71.6; Estimated Glomerular Filt Rate > 60; Glucose Random 108 mg/dL (60-115); Magnesium 2.5 mg/dL (1.6-2.6); Potassium 3.9 mmol/L (3.3-5.1); Sodium 148 mmol/L (135-145)
[2021-12-02 19:48] LABS: COVID-19 Test Negative (Negative); IDNOW Serial# 9DB6401D
--- NOTE | 2021-12-02 21:03 | PC.NURSE ---
Open blisters noted to penis and scrotal area upon insertion of urinary catheter. FUENTES and at bedside. Patient swabbed for herpes.
[2021-12-02 21:05] LABS: Appearance Urine CLEAR; Color Urine YELLOW; Glucose Urine UA NEG (NEG); Leukocyte Esterase Urine NEG (NEG); Nitrite Urine NEG (NEG); PH 5.5 (5.0-8.0); Specific Gravity - Urine >= 1.030 (1.005-1.025); UACC Culture Trigger NO; Urine Blood 3+ (NEG); Urine Ketones NEG (NEG); Urine Protein TRACE MG/DL (NEG-TRACE)
[2021-12-02 21:12] LABS: Bacteria Urine 1+ /LPF; WBC Urine 0 /HPF (0-4)
[2021-12-02 21:24] LABS: Amphetamine Screen Urine Not Detected (Not Detect); Barbiturates, Urine Not Detected (Not Detect); Benzodiazepines Screen Urine Not Detected (Not Detect); Cannabinoid Screen Urine Not Detected (Not Detect); Cocaine Screen Urine Not Detected (Not Detect); Fentanyl, urine POSITIVE (Not Detect); Opiate Screen Urine Not Detected (Not Detect); Phencyclidine Screen Urine Not Detected (Not Detect)
[2021-12-02 21:31] VITALS: BP 124/74; PULSE 50; RESP 13; O2SAT 95
[2021-12-02] MEDS: Morphine Sulfate 4 MG/ML CARTRIDGE IVPUSH (21:32)
[2021-12-02] MEDS: Fluconazole 150 MG TABLET PO ×2 (21:33→22:00)
[2021-12-02] MEDS: cefTRIAXone sodium 1 GM in 0.9 % Sodium Chloride 50 ML IV (22:00)
--- NOTE | 2021-12-02 23:34 | PM.IMHP ---
History of Present Illness Date of Service: 12/02/21 Chief Complaint: Lethargy 56-year-old male with past medical history of hypertension, hyperlipidemia, anxiety, depression, BPH, bipolar, Alzheimer's dementia, history of agitative episodes at home; presented to the hospital today with a chief complaint of lethargy. Most of the history is obtained from the patient's family. Reports that patient usually nonverbal at baseline; Patient the usually is aggressive; today he is noted to be more calm and lethargic, sleeping all day. Mentions that patient based diapers every day, and had a recent change in diapers about 2 days ago; today when they tried to change the diaper the noted erythema on the penis and perianal area; denies any discharge. Also mention foul-smelling. Denies any diarrhea. Denies patient expressing any pain. Denies patient having any nausea vomiting or diarrhea. Denies any fevers. Family reports that they might be concern diaper rash from new change in the diapers. Review of all other systems is limited. ER course: Per ER team patient is alert and awake, stable vitals, no leukocytosis on the labs, on general are examination noted to have denial erythema, scrotal edema, perianal erythema with raised white plaques; initially concern for candidiasis versus cellulitis; given IV acyclovir, Diflucan, ceftriaxone. Admitted to hospital for further management. [facility] Medical History Altered mental status Alzheimer disease Anxiety Asthma Benign essential hypertension Bipolar depression BPH (benign prostatic hyperplasia) Frontotemporal dementia GERD (gastroesophageal reflux disease) Insomnia Lesion of skin of scrotum Lumbar degenerative disc disease Pure hypercholesterolemia Smoker Family History Father Alzheimers disease Chronic mental illness Mother Hypertension Meningitis Sister Heart disease Hypertension Maternal Grandmother Hypertension Diabetes Surgical History History of discectomy History of removal of cyst History of surgery Social History Household Members: Family Housing: Apartment Do you presently have visiting nurse or other home services: No Unable to assess alcohol history related to: Unable to respond Alcohol intake: current Alcohol intake frequency: does not drink Patient Tobacco Use Status: Former Tobacco user e-Cigarette/Vaping Use: Never Used Second Hand Smoke Exposure: No Advance Directives Date on File: 07/15/20 service: No Current occupational status: disabled Sexual orientation: Straight/Heterosexual Cognitive needs: Yes Hearing needs: No Vision needs: No Meds Allergies Allergy/AdvReac Type Severity Reaction Status Date / Time ciprofloxacin [CIPROFLOXACIN] AdvReac Intermediate DIARRHEA Verified 12/22/21 14:13 Active Medications: Current Medications Pharmacy Consult (Consult Rx Perform Med Rec) 1 each MISCELLANE ONCE STA Stop: 12/02/21 23:32 Home Medications Medication Instructions Recorded Confirmed Last Taken Type lisinopril 5 mg tablet 5 mg PO DAILY 06/20/20 12/03/21 12/02/21 History divalproex 500 mg tablet,delayed 1 tab PO BID 12/03/21 12/03/21 12/02/21 History release escitalopram oxalate 10 mg tablet 1 tab PO DAILY 12/03/21 12/03/21 12/02/21 History melatonin 3 mg tablet 1 tab PO BEDTIME PRN insomnia 12/03/21 12/03/21 12/02/21 History Physical Exam Vital Signs and Narrative: Vital Signs: Last Vital Signs Temp 98.5 F 12/02/21 18:42 Pulse 50 12/02/21 21:31 Resp 13 12/02/21 21:31 BP 124/74 12/02/21 21:31 Pulse Ox 95 12/02/21 21:31 O2 Del Method 12/02/21 21:31 BMI result Body Mass Index 24.9 Gen: Appears be in no acute distress HEENT: NCAT, Moist mucosa. Pulmonary: Vesicular breath sounds, fair air entry CVS: Normal S1-S2 Abdomen: BS+, Soft, Nontender Extremities: Warm well perfused Neuro: Alert and awake. Genitourinary: Examined along with a female stockroom attendant. Noted to have erythema of the penis, status post Figueroa catheter placement, also noted erythema around the scrotum and in the perianal area with white raised plaques; nontender. as shown in the pictures below Results Labs CBC and Chem 7: 12/05/21 06:38 12/05/21 06:38 Labs: Laboratory Results - last 24 hr 12/02/21 12/02/21 12/02/21 19:00 19:00 19:05 MCV MCH MCHC RDW Plt Count MPV Immature Gran % (Auto) Neut % (Auto) Lymph % (Auto) [place] % (Auto) Eos % (Auto) Baso % (Auto) Lymph # (Auto) [place] # (Auto) Eos # (Auto) Baso # (Auto) Abs Immat Gran (auto) Absolute Neuts (auto) Absolute Nucleated RBC Nucleated RBC % (auto) Anion Gap 12 Estim Creat Clear Calc 71.6 Estimated GFR > 60 Random Glucose 108 D Calcium 8.6 D Magnesium 2.5 Troponin I High Sens Urine Color Urine Appearance Urine pH Ur Specific [place] Urine Protein Urine Glucose (UA) Urine Ketones Urine Blood Urine Nitrite Ur Leukocyte Esterase Urine RBC Urine WBC Ur Squamous Epith Cells Urine Bacteria Urine Opiates Screen Urine Fentanyl Screen Ur Barbiturates Screen Ur Phencyclidine Scrn Ur Amphetamines Screen U Benzodiazepines Scrn Urine Cocaine Screen U Marijuana (THC) Screen Ethyl Alcohol COVID-19 (EMMETT) Negative COVID-19 Clin Com See Note Influenza Type A (SHREE) Negative Influenza Type B (SHREE) Negative Influenza A & B Note See Note 12/02/21 12/02/21 12/02/21 19:05 19:06 19:06 MCV 99.5 H MCH 31.7 MCHC 31.8 RDW 14.1 Plt Count 222 MPV 9.3 L Immature Gran % (Auto) 0.2 Neut % (Auto) 57.9 Lymph % (Auto) 27.6 [place] % (Auto) 10.9 Eos % (Auto) 3.1 Baso % (Auto) 0.3 Lymph # (Auto) 2.4 [place] # (Auto) 1.0 Eos # (Auto) 0.3 Baso # (Auto) 0.0 Abs Immat Gran (auto) 0.02 Absolute Neuts (auto) 5.1 Absolute Nucleated RBC 0.000 Nucleated RBC % (auto) 0.0 Anion Gap Estim Creat Clear Calc Estimated GFR Random Glucose Calcium Magnesium Troponin I High Sens 6.4 Urine Color Urine Appearance Urine pH Ur Specific [place] Urine Protein Urine Glucose (UA) Urine Ketones Urine Blood Urine Nitrite Ur Leukocyte Esterase Urine RBC Urine WBC Ur Squamous Epith Cells Urine Bacteria Urine Opiates Screen Urine Fentanyl Screen Ur Barbiturates Screen Ur Phencyclidine Scrn Ur Amphetamines Screen U Benzodiazepines Scrn Urine Cocaine Screen U Marijuana (THC) Screen Ethyl Alcohol < 10 COVID-19 (EMMETT) COVID-19 Clin Com Influenza Type A (SHREE) Influenza Type B (SHREE) Influenza A & B Note 12/02/21 12/02/21 20:56 20:56 MCV MCH MCHC RDW Plt Count MPV Immature Gran % (Auto) Neut % (Auto) Lymph % (Auto) [place] % (Auto) Eos % (Auto) Baso % (Auto) Lymph # (Auto) [place] # (Auto) Eos # (Auto) Baso # (Auto) Abs Immat Gran (auto) Absolute Neuts (auto) Absolute Nucleated RBC Nucleated RBC % (auto) Anion Gap Estim Creat Clear Calc Estimated GFR Random Glucose Calcium Magnesium Troponin I High Sens Urine Color YELLOW Urine Appearance CLEAR Urine pH 5.5 Ur Specific [place] >= 1.030 H Urine Protein TRACE Urine Glucose (UA) NEG Urine Ketones NEG Urine Blood 3+ H Urine Nitrite NEG Ur Leukocyte Esterase NEG Urine RBC 10-14 H Urine WBC 0 Ur Squamous Epith Cells NONE Urine Bacteria 1+ Urine Opiates Screen Not Detected Urine Fentanyl Screen POSITIVE H Ur Barbiturates Screen Not Detected Ur Phencyclidine Scrn Not Detected Ur Amphetamines Screen Not Detected U Benzodiazepines Scrn Not Detected Urine Cocaine Screen Not Detected U Marijuana (THC) Screen Not Detected Ethyl Alcohol COVID-19 (EMMETT) COVID-19 Clin Com Influenza Type A (SHREE) Influenza Type B (SHREE) Influenza A & B Note Imaging Radiologist's Impressions: Impressions Chest X-Ray 12/02/21 18:51 IMPRESSION: No acute disease. Head CT 12/02/21 21:32 IMPRESSION: No acute intracranial abnormality. Assessment and Plan (1) Cellulitis: Status: Acute Plan 56-year-old male with past medical history of hypertension, hyperlipidemia, anxiety, depression, BPH, bipolar, Alzheimer's dementia, history of agitative episodes at home; presented to the hospital today with a chief complaint of lethargy. Perineal/scrotal/penile cellulitis: Noted extensive erythema, no evidence of gangrene; CT scan showed no evidence of fluid collection. Discussed with Dr. Chidi Brown in regards the above images of the perineum and scrotum-mentioned nonsurgical. Also her diaper rash in the differential given recent change. Patient received Diflucan and acyclovir along with ceftriaxone in the ER. Continue IV vancomycin and Zosyn Id consult for further recommendations Large amount of stool burden/stercoral colitis: General surgery consult. Patient on broad-spectrum antibiotics. Bowel regimen. History of dementia with behavioral disturbance: Continue home risperidone, trazodone, hydroxyzine History of GERD: Continue home pantoprazole History of hypertension: Continue home lisinopril DVT prophylaxis: Lovenox Code status: DNR/DNI. Confirmed the patient's family at bedside. Quality Stroke Does the patient have a stroke diagnosis?: No VTE Prior VTE?: No VTE Risk Level:: Medical - moderate - high VTE Device Contraindication: Treatment Not Indicated VTE Drug Contraindication: N/A - Med Ordered
[2021-12-03] VITALS (11 sets, daily range): BP systolic 95–127; BP diastolic 44–85; PULSE 41–61; RESP 11–18; TEMP 35.6–36.5; O2SAT 95–100
[2021-12-03] MEDS: Piperacillin Sodium/Tazobactam 3.375 GM in 0.9 % Sodium Chloride 50 ML IV ×2 (00:26→06:26)
[2021-12-03] MEDS: Dextrose 5 % and 0.9 % NaCl 1,000 ML 100 ML IVCONT (00:29)
[2021-12-03] MEDS: Enoxaparin Sodium 40 MG/0.4 ML SYRINGE SUBCUT (00:30)
[2021-12-03] MEDS: 0.9 % Sodium Chloride Flush 3 ML SYRINGE IVFLUSH ×2 (00:33→08:10)
[2021-12-03] MEDS: vancomycin HCL 1,000 MG in 0.9 % Sodium Chloride 250 ML 270 MG IV (00:33)
--- NOTE | 2021-12-03 02:15 | PC.NURSE ---
Dr Sam notified of heart rate ranging between 38-50. No new orders, will monitor closely.
[2021-12-03] MEDS: bisacodyL 10 MG SUPP.RECT PR (05:25)
[2021-12-03 06:56] LABS: MANUAL DIFF FLAG NO
[2021-12-03 07:15] LABS: Basophils Percent Auto 0.3 % (0-2); Eosinophils Absolute Auto 0.3 X10*3/uL (0.0-0.4); Eosinophils Percent Auto 4.2 % (0-4); Hematocrit 38.1 % (42.0-52.0); Hemoglobin 11.8 g/dl (14.0-18.0); Imm Gran Abs Auto 0.01 X10*3/uL (0.00-0.03); Imm Gran Pct Auto 0.2 % (0.0-0.4); Lymphocytes Absolute Auto 1.7 X10*3/uL (1.2-4.9); Mean Corpuscular Hemoglobin 31.1 pg (27.0-33.0); Mean Corpuscular Volume 100.5 fL (80.0-98.0); Mean Platelet Volume 9.1 fL (9.4-12.4); Monocytes Absolute Auto 0.5 X10*3/uL (0.1-1.2); Neutrophils Absolute Auto 3.4 x10*3/uL (2.0-8.3); Neutrophils Percent Auto 58.3 % (45-73); Platelet Count 219 X10*3/uL (160-400); Red Blood Count 3.79 X10*6/uL (4.60-5.80); Red Cell Distribution Width 14.5 % (11.0-16.0); White Blood Count 5.9 X10*3/uL (4.8-10.8)
[2021-12-03 07:29] LABS: Anion Gap 9 (12-20); Blood Urea Nitrogen 23 mg/dL (9-16); Calcium 8.2 mg/dL (8.4-10.2); Carbon Dioxide 22 mmol/L (22-29); Chloride 122 mmol/L (96-108); Creatinine Clr Calc Pharmacy 85.4; Estimated Glomerular Filt Rate > 60; Glucose Random 89 mg/dL (60-115); Potassium 3.9 mmol/L (3.3-5.1); Sodium 149 mmol/L (135-145)
--- NOTE | 2021-12-03 07:39 | PC.NURSE ---
pt is alert, appears non-verbal. hr 39-56, pt appears asymptomatic. drake cath p&d yellow urine, ivf infusing. large formed bm x 1. pt has a approx 8in wound to r inner groin area and multi open pustules to scrotum pic tiger txted to admitting md.
--- NOTE | 2021-12-03 07:56 | PHA.PROG ---
Admission Date/Time: December 02, 2021 23:28 Indication: CELLULITIS Weight in k kg Adjusted body weight in Kg: [place] body weight in Kg: Obesity Dosing Indication % IBW: Serum Creatinine - Last 168 Hours 12/02/21 12/03/21 19:05 06:53 Creatinine 0.99 0.83 Estimated CrCl and GFR - Last 168 Hours 12/02/21 12/03/21 19:05 06:53 Estim Creat Clear Calc 71.6 85.4 Estimated GFR > 60 > 60 Vancomycin Loading Dose: 1000 mg x 1 given in the ED Current Vancomycin Dosing Regimen: 750 mg q12h Vancomycin Monitoring using AUC goal of 400 - 600 range with trough as surrogate marker: predicted auc of 459 Date and Time for next Vancomycin Level to be drawn: 12/04/21 @1000 Pharmacist Comments on Vancomycin Plan: 1000 mg x 1 at 1200 to get to AUC faster, then proceeding with 750 mg q12h. Vancomycin dosing will take advantage of [employer] as a clinical decision support tool that uses Bayesian modeling to calculate individual patient's pharmacokinetic parameters and forecast the patient's drug concentration time course with the target goal AUC 24 range of 400 - 600 mg/L/hr.
--- NOTE | 2021-12-03 08:11 | PC.NURSE ---
pt's is at bedside, aware of plan of care.
--- NOTE | 2021-12-03 08:36 | PC.NURSE ---
dr. mcneil at bedside, pt/ aware of plan of care.
[2021-12-03] MEDS: Dextrose 5 % 1,000 ML 100 ML IVCONT ×2 (09:05→20:53)
--- NOTE | 2021-12-03 10:14 | MHC.SL.SWA ---
Speech Pathologist Impression: Risk of Aspiration Due to: Reduced Cognition Dysphasia Diet Status: Mild oral phase dysphagia due to prolonged mastication. Liquid Consistency and Strategies for Safe Swallow: Liquid Intake Recommendation: Thin Liquid Intake Strategies: Unrestricted Solid Food Consistency: Dietary Recommendations: Regular Additional Modifications to Solid Foods: Avoid very tough, difficult to chew solids. Pt will need assistance during meal to orient to food and implements on tray, and to cue to drink sips between bites. Oral Medication Intake: Whole with Liquid Please contact the pharmacy regarding appropriate crushable or liquid drug formulations that are available whenever modified delivery is recommended. Compensatory Strategies and Precautions to be Taken for Safe Swallow: Supervision While Eating and Drinking for Safe Swallow: Total Supervision (1:1) Foods to Avoid: Tough, difficult to chew solids. Swallowing Recommended Treatments: Recommendation for Speech: Pt presents with mild oral phase dysphagia due to prolonged mastication of more solid foods. However Pt is able to manage all food consistencies well, when alternating with sips of liquid. Pharyngeal phase of swallow WFL. Recommend REGULAR diet w/Thin liquids, Pills WHOLE with liquid. Pt will need assistance during meal to orient to food and implements on tray, and to cue to drink sips between bites. Comment: Frequency/Duration: Date Range for Service Req: Timeline to reassess: Certified Professional Coder Clinican/Clinical Fellow: No Supervisory Statement: I have reviewed and agree with the student/clinical fellow's documentation: Speech Language Pathologist: Gretchen Arauz M.A., [facility]
--- NOTE | 2021-12-03 13:23 | MHC.CM.PN ---
IMM 12/03/21, EMR REVIEWED, PT ADMITTED W/CELLULITIS, CM MET W/PT AND SPOUSE MICHAEL AT BEDSIDE, PER MICHAEL PT DOES NOT USE DME, PT HAS DAILY BID PRESS WASHER THROUGH [facility] FOR MED MANAGEMENT, PCP VERRIFIED [facility]OU[facility], HCP IS MICHAEL AND COPY ON FILE IN EXPANSE, PT HAS NOT BEEN VACCINATED FOR COVID. D/C PLAN: HOME W/RESUMP OF SERVICES AND PT'S SON FOR TRANSPORT
--- NOTE | 2021-12-03 13:35 | P.CNID_ITS ---
History of Present Illness Data of Consult Service Date: 12/03/21 Requesting physician: Sandeep Stoll Primary Care Provider: Alexander Patel MD HPI Reason for consult: lethargy,abnormal groin findings He presents from facility with reported lethargy and groin findings of concern with scrotum rounded punctate areas and streaking area of white forming one cm line posterior buttock. He has no fever or chills or leukocytosis. He looks alert now. Review of Systems Review of Systems: Yes Unobtainable due to mental condition [facility] Past Medical History Medical History Alzheimer disease Anxiety Asthma Benign essential hypertension Bipolar depression BPH (benign prostatic hyperplasia) GERD (gastroesophageal reflux disease) Insomnia Lesion of skin of scrotum Lumbar degenerative disc disease Pure hypercholesterolemia Smoker Family History Family History Father Alzheimers disease Chronic mental illness Mother Hypertension Meningitis Sister Heart disease Hypertension Maternal Grandmother Hypertension Diabetes Family history: reviewed and not pertinent Surgical History Surgical History History of discectomy History of removal of cyst History of surgery Social History Social History Household Members: None Housing: Apartment Do you presently have visiting nurse or other home services: No Alcohol intake: current Alcohol intake frequency: does not drink Patient Tobacco Use Status: Former Tobacco user Second Hand Smoke Exposure: No Advance Directives: Yes Advance Directives on File: Yes Advance Directives Date on File: 07/15/20 service: No Current occupational status: disabled Sexual orientation: Straight/Heterosexual Cognitive needs: Yes Hearing needs: No Vision needs: No Meds Allergies Allergy/AdvReac Type Severity Reaction Status Date / Time ciprofloxacin [CIPROFLOXACIN] AdvReac Intermediate DIARRHEA Verified 10/07/21 04:45 Active Medications: Current Medications Acetaminophen (Acetaminophen 325 Mg Tablet) 650 mg PO Q6H PRN PRN Reason: Pain, Mild (Pain Scale 1-3) Bisacodyl (Bisacodyl 10 Mg Supp.Rect) 10 mg OR DAILY PRN PRN Reason: Constipation Bisacodyl (Bisacodyl 5 Mg Tablet.Dr) 10 mg PO DAILY RAMON Last Admin: 12/03/21 09:06 Dose: Not Given Clotrimazole (Clotrimazole 1 % Cream 15 Gm Tube) 1 appl TOPICAL BID [facility]; Protocol Stop: 12/09/21 23:59 Enoxaparin Sodium (Enoxaparin Sodium 40 Mg/0.4 Ml Syringe) 40 mg SUBCUT Q24H [facility] Last Admin: 12/03/21 00:30 Dose: 40 mg Dextrose (D5w) 1,000 mls @ 100 mls/hr IVCONT .Q10H [facility] Last Admin: 12/03/21 09:05 Dose: 100 mls/hr Melatonin (Melatonin 3 Mg Tablet) 6 mg PO BEDTIME PRN PRN Reason: Insomnia Pharmacy Consult (Consult Rx Vancomycin Dosing) 1 each MISCELLANE DAILY PRN PRN Reason: Consult order Senna (Sennosides 8.6 Mg Tablet) 17.2 mg PO BEDTIME PRN PRN Reason: Constipation Sodium Chloride (0.9 % Sodium Chloride Flush 3 Ml Syringe) 3 ml IVFLUSH QSHIFT [facility] Last Admin: 12/03/21 08:10 Dose: 3 ml Valacyclovir HCl (Valacyclovir Hcl 1,000 Mg Tablet) 1,000 mg PO Q12H [facility] Home Medications Medication Instructions Recorded Confirmed Last Taken Type lisinopril 5 mg tablet 5 mg PO DAILY 06/20/20 12/03/21 12/02/21 History divalproex 500 mg tablet,delayed 1 tab PO BID 12/03/21 12/03/21 12/02/21 History release escitalopram oxalate 10 mg tablet 1 tab PO DAILY 12/03/21 12/03/21 12/02/21 History lorazepam 0.5 mg tablet 1 tab PO TID 12/03/21 12/03/21 12/02/21 History melatonin 3 mg tablet 1 tab PO BEDTIME PRN insomnia 12/03/21 12/03/21 12/02/21 History Physical Exam Vital Signs: Vital Signs: Last Vital Signs Temp 96.1 F L 12/03/21 07:24 Pulse 52 12/03/21 13:16 Resp 11 L 12/03/21 13:16 BP 124/72 12/03/21 13:16 Pulse Ox 96 12/03/21 13:16 O2 Del Method 12/03/21 13:16 BMI result Body Mass Index 24.9 Const: General: cooperative HEENT: Head: Yes normal to inspection Mouth: Normal oral and palatal mucosa present Resp: Effort & Inspection: normal respiratory effort Cardio: Rate: regular rate Rhythm: regular rhythm GI: Palpation (GI): Soft to palpation and nontender : Other: small papules scrotum,no blisters Results Labs CBC & Chem 7: 12/03/21 06:53 12/03/21 06:53 Labs: Short CBC 12/02/21 12/03/21 Range/Units 19:06 06:53 WBC 8.8 5.9 (4.8-10.8) X10*3/uL Hgb 12.6 L 11.8 L (14.0-18.0) g/dl Hct 39.6 L 38.1 L (42.0-52.0) % Plt Count 222 219 (160-400) X10*3/uL BMP 12/02/21 12/03/21 19:05 06:53 Sodium 148 H 149 H Potassium 3.9 3.9 Chloride 118 H 122 H Carbon Dioxide 22 22 BUN 30 H 23 H Creatinine 0.99 0.83 Calcium 8.6 D 8.2 L Urine 12/02/21 Range/Units 20:56 Urine Color YELLOW Urine Appearance CLEAR Urine pH 5.5 (5.0-8.0) Ur Specific [place] >= 1.030 H (1.005-1.025) Urine Protein TRACE (NEG-TRACE) MG/DL Urine Glucose (UA) NEG (NEG) MG/DL Assessment and Plan (1) Altered mental status: Status: Acute (2) Lesion of skin of scrotum: Status: Acute There are skin lesion ?herpes and some possible celeste. Plan Would give po Valtrex and topical lotrimin. There is no cellulitis at this time and patient alert so maybe constipation caused lethargy (he had bowel movement) There is no colitis or diarrhea Hold antibiotics Stool regimen
--- NOTE | 2021-12-03 14:57 | PHA.MEDREC ---
Pharmacy Consult ? Medication Reconciliation Pharmacy has completed the medication reconciliation.
--- NOTE | 2021-12-03 15:13 | P.PNIM_ITS ---
Subjective Subjective Date of Service: 12/03/21 Interval History: no acute issues overnight Review of Systems patient nonverbal Physical Exam Vital Signs: Vital Signs: Last Vital Signs Temp 96.1 F L 12/03/21 07:24 Pulse 52 12/03/21 13:16 Resp 11 L 12/03/21 13:16 BP 124/72 12/03/21 13:16 Pulse Ox 96 12/03/21 13:16 O2 Del Method 12/03/21 13:16 BMI result Body Mass Index 24.9 Const: Other: awake nonverbal Resp: Other: clear to auscultation bilaterally no rales rhonchi or wheezes Cardio: Other: no S4; positive S1-S2; no S3 murmurs rubs or gallops GI: Other: soft nontender nondistended normoactive bowel sounds : Other: as per admission photos Extrem: Other: no edema Objective Data Active Medications Acetaminophen (Acetaminophen 325 Mg Tablet) 650 mg PO Q6H PRN PRN Reason: Pain, Mild (Pain Scale 1-3) Bisacodyl (Bisacodyl 10 Mg Supp.Rect) 10 mg ND DAILY PRN PRN Reason: Constipation Bisacodyl (Bisacodyl 5 Mg Tablet.Dr) 10 mg PO DAILY REPLACED BY [facility] Last Admin: 12/03/21 09:06 Dose: Not Given Documented By: TESHA Non-Admin Reason: NPO Clotrimazole (Clotrimazole 1 % Cream 15 Gm Tube) 1 appl TOPICAL BID REPLACED BY [facility]; Protocol Stop: 12/09/21 23:59 Enoxaparin Sodium (Enoxaparin Sodium 40 Mg/0.4 Ml Syringe) 40 mg SUBCUT Q24H REPLACED BY [facility] Last Admin: 12/03/21 00:30 Dose: 40 mg Documented By: KAPIL Dextrose (D5w) 1,000 mls @ 100 mls/hr IVCONT .Q10H REPLACED BY [facility] Last Admin: 12/03/21 09:05 Dose: 100 mls/hr Documented By: TESHA Melatonin (Melatonin 3 Mg Tablet) 6 mg PO BEDTIME PRN PRN Reason: Insomnia Pharmacy Consult (Consult Rx Vancomycin Dosing) 1 each MISCELLANE DAILY PRN PRN Reason: Consult order Senna (Sennosides 8.6 Mg Tablet) 17.2 mg PO BEDTIME PRN PRN Reason: Constipation Sodium Chloride (0.9 % Sodium Chloride Flush 3 Ml Syringe) 3 ml IVFLUSH QSHIFT REPLACED BY [facility] Last Admin: 12/03/21 08:10 Dose: 3 ml Documented By: TESHA Valacyclovir HCl (Valacyclovir Hcl 1,000 Mg Tablet) 1,000 mg PO Q12H REPLACED BY [facility] Labs CBC & Chem 7: 12/03/21 06:53 12/03/21 06:53 Labs: Laboratory Results - last 24 hr 12/02/21 12/02/21 12/02/21 19:00 19:00 19:05 MCV MCH MCHC RDW Plt Count MPV Immature Gran % (Auto) Neut % (Auto) Lymph % (Auto) Archer % (Auto) Eos % (Auto) Baso % (Auto) Lymph # (Auto) [place] # (Auto) Eos # (Auto) Baso # (Auto) Abs Immat Gran (auto) Absolute Neuts (auto) Absolute Nucleated RBC Nucleated RBC % (auto) Anion Gap 12 Estim Creat Clear Calc 71.6 Estimated GFR > 60 Random Glucose 108 D Calcium 8.6 D Magnesium 2.5 Troponin I High Sens Urine Color Urine Appearance Urine pH Ur Specific [place] Urine Protein Urine Glucose (UA) Urine Ketones Urine Blood Urine Nitrite Ur Leukocyte Esterase Urine RBC Urine WBC Ur Squamous Epith Cells Urine Bacteria Urine Opiates Screen Urine Fentanyl Screen Ur Barbiturates Screen Ur Phencyclidine Scrn Ur Amphetamines Screen U Benzodiazepines Scrn Urine Cocaine Screen U Marijuana (THC) Screen Ethyl Alcohol COVID-19 (EMMETT) Negative COVID-19 Clin Com See Note Influenza Type A (SHREE) Negative Influenza Type B (SHREE) Negative Influenza A & B Note See Note 12/02/21 12/02/21 12/02/21 19:05 19:06 19:06 MCV 99.5 H MCH 31.7 MCHC 31.8 RDW 14.1 Plt Count 222 MPV 9.3 L Immature Gran % (Auto) 0.2 Neut % (Auto) 57.9 Lymph % (Auto) 27.6 Archer % (Auto) 10.9 Eos % (Auto) 3.1 Baso % (Auto) 0.3 Lymph # (Auto) 2.4 Archer # (Auto) 1.0 Eos # (Auto) 0.3 Baso # (Auto) 0.0 Abs Immat Gran (auto) 0.02 Absolute Neuts (auto) 5.1 Absolute Nucleated RBC 0.000 Nucleated RBC % (auto) 0.0 Anion Gap Estim Creat Clear Calc Estimated GFR Random Glucose Calcium Magnesium Troponin I High Sens 6.4 Urine Color Urine Appearance Urine pH Ur Specific [place] Urine Protein Urine Glucose (UA) Urine Ketones Urine Blood Urine Nitrite Ur Leukocyte Esterase Urine RBC Urine WBC Ur Squamous Epith Cells Urine Bacteria Urine Opiates Screen Urine Fentanyl Screen Ur Barbiturates Screen Ur Phencyclidine Scrn Ur Amphetamines Screen U Benzodiazepines Scrn Urine Cocaine Screen U Marijuana (THC) Screen Ethyl Alcohol < 10 COVID-19 (EMMETT) COVID-19 Clin Com Influenza Type A (SHREE) Influenza Type B (SHREE) Influenza A & B Note 12/02/21 12/02/21 12/03/21 20:56 20:56 06:53 MCV 100.5 H MCH 31.1 MCHC 31.0 RDW 14.5 Plt Count 219 MPV 9.1 L Immature Gran % (Auto) 0.2 Neut % (Auto) 58.3 Lymph % (Auto) 29.0 Archer % (Auto) 8.0 Eos % (Auto) 4.2 H Baso % (Auto) 0.3 Lymph # (Auto) 1.7 Archer # (Auto) 0.5 Eos # (Auto) 0.3 Baso # (Auto) 0.0 Abs Immat Gran (auto) 0.01 Absolute Neuts (auto) 3.4 Absolute Nucleated RBC 0.000 Nucleated RBC % (auto) 0.0 Anion Gap Estim Creat Clear Calc Estimated GFR Random Glucose Calcium Magnesium Troponin I High Sens Urine Color YELLOW Urine Appearance CLEAR Urine pH 5.5 Ur Specific [place] >= 1.030 H Urine Protein TRACE Urine Glucose (UA) NEG Urine Ketones NEG Urine Blood 3+ H Urine Nitrite NEG Ur Leukocyte Esterase NEG Urine RBC 10-14 H Urine WBC 0 Ur Squamous Epith Cells NONE Urine Bacteria 1+ Urine Opiates Screen Not Detected Urine Fentanyl Screen POSITIVE H Ur Barbiturates Screen Not Detected Ur Phencyclidine Scrn Not Detected Ur Amphetamines Screen Not Detected U Benzodiazepines Scrn Not Detected Urine Cocaine Screen Not Detected U Marijuana (THC) Screen Not Detected Ethyl Alcohol COVID-19 (EMMETT) COVID-19 Clin Com Influenza Type A (SHREE) Influenza Type B (SHREE) Influenza A & B Note 12/03/21 06:53 MCV MCH MCHC RDW Plt Count MPV Immature Gran % (Auto) Neut % (Auto) Lymph % (Auto) [place] % (Auto) Eos % (Auto) Baso % (Auto) Lymph # (Auto) [place] # (Auto) Eos # (Auto) Baso # (Auto) Abs Immat Gran (auto) Absolute Neuts (auto) Absolute Nucleated RBC Nucleated RBC % (auto) Anion Gap 9 L Estim Creat Clear Calc 85.4 Estimated GFR > 60 Random Glucose 89 Calcium 8.2 L Magnesium Troponin I High Sens Urine Color Urine Appearance Urine pH Ur Specific [place] Urine Protein Urine Glucose (UA) Urine Ketones Urine Blood Urine Nitrite Ur Leukocyte Esterase Urine RBC Urine WBC Ur Squamous Epith Cells Urine Bacteria Urine Opiates Screen Urine Fentanyl Screen Ur Barbiturates Screen Ur Phencyclidine Scrn Ur Amphetamines Screen U Benzodiazepines Scrn Urine Cocaine Screen U Marijuana (THC) Screen Ethyl Alcohol COVID-19 (EMMETT) COVID-19 Clin Com Influenza Type A (SHREE) Influenza Type B (SHREE) Influenza A & B Note Assessment and Plan (1) Lesion of skin of scrotum: Status: Acute (2) Hypernatremia: Status: Acute (3) Benign essential hypertension: Status: Acute (4) Alzheimer disease: Status: Acute (5) Bipolar depression: Status: Acute Plan 56 year old male with a history of frontotemporal dementia/ Alzheimer disease presents with increased lethargy in urine output. Patient cared for at home with family in [employer] support. Noted to have diffuse skin rash over scrotum and perineum without acute CT scan findings. 1.Skin/scrotal lesions - as per ID will DC antibiotics - oral antiviral and antifungals 2.Hypernatremia - free water deficit calculated at 2.5 L - D5W at 100 an hour to correct free water deficit -follow renals/divalents 3. Hypertension - acceptable control on current therapies - adjust as indicated 4.Dementia/Bipolar -acceptable control -continue outpatient therapies DNR DNI Lovenox requires ongoing hospitalization for correction of free water deficit with IV fluids Quality Stroke Does the patient have a stroke diagnosis?: No VTE Prior VTE?: No VTE Risk Level:: Medical - moderate - high VTE Device Contraindication: Treatment Not Indicated VTE Drug Contraindication: N/A - Med Ordered
[2021-12-03] MEDS: valACYclovir HCL 1,000 MG TABLET 1000 MG PO (15:55)
[2021-12-03] MEDS: LORazepam 2 MG/ML VIAL 1 MG IVPUSH (16:02)
--- NOTE | 2021-12-03 16:05 | PC.NURSE ---
medicated per provider order, prn ativan given.
--- NOTE | 2021-12-03 16:08 | PC.NURSE ---
pharmacy contacted regarding ointment missing from pyxis.
--- NOTE | 2021-12-03 16:57 | P.CONGS_ITS ---
History of Present Illness Consult details Consult date: 12/03/21 Narrative: 56-year-old male patient presenting to the emergency department with lethargy. He has a past medical history of hypertension, hyperlipidemia, anxiety, the para ro, bipolar disorder, Alzheimer's dementia with agitation. He is incontinent and uses diapers every day. He was noted to have open wounds of the scrotum perianal skin which began to drain foul-smelling discharge. In the ED he was noted to be afebrile with normal WBC. CT of the abdomen and pelvis revealed a large rectal stool burden with stool ball measuring up to 9.1 x 2.7 cm trans axillae and 12.4 cm craniocaudally. No significant perirectal inflammation is identified to suggest cervical colitis. Mild prostatomegaly accompanying dystrophic calcifications are noted. Scrotum and genitalia are unremarkable and no drainable collections are identified. Patient was evaluated by Infectious Disease and started on Valtrex and Topical Lotrimin. Review of Systems Review of Systems: Yes Unobtainable due to mental condition PMFSH Past Medical History Medical History Alzheimer disease Anxiety Asthma Benign essential hypertension Bipolar depression BPH (benign prostatic hyperplasia) GERD (gastroesophageal reflux disease) Insomnia Lesion of skin of scrotum Lumbar degenerative disc disease Pure hypercholesterolemia Smoker Family History Family History Father Alzheimers disease Chronic mental illness Mother Hypertension Meningitis Sister Heart disease Hypertension Maternal Grandmother Hypertension Diabetes Family history: reviewed and not pertinent Surgical History Surgical History History of discectomy History of removal of cyst History of surgery Social History Social History Household Members: None Housing: Apartment Do you presently have visiting nurse or other home services: No Alcohol intake: current Alcohol intake frequency: does not drink Patient Tobacco Use Status: Former Tobacco user Second Hand Smoke Exposure: No Advance Directives: Yes Advance Directives on File: Yes Advance Directives Date on File: 07/15/20 service: No Current occupational status: disabled Sexual orientation: Straight/Heterosexual Cognitive needs: Yes Hearing needs: No Vision needs: No Meds Allergies Allergy/AdvReac Type Severity Reaction Status Date / Time ciprofloxacin [CIPROFLOXACIN] AdvReac Intermediate DIARRHEA Verified 04/14/22 04:45 Active Medications: Current Medications Acetaminophen (Acetaminophen 325 Mg Tablet) 650 mg PO Q6H PRN PRN Reason: Pain, Mild (Pain Scale 1-3) Bisacodyl (Bisacodyl 10 Mg Supp.Rect) 10 mg MO DAILY PRN PRN Reason: Constipation Bisacodyl (Bisacodyl 5 Mg Tablet.Dr) 10 mg PO DAILY [facility] Last Admin: 12/03/21 09:06 Dose: Not Given Clotrimazole (Clotrimazole 1 % Cream 15 Gm Tube) 1 appl TOPICAL BID [facility]; Protocol Stop: 12/09/21 23:59 Enoxaparin Sodium (Enoxaparin Sodium 40 Mg/0.4 Ml Syringe) 40 mg SUBCUT Q24H [facility] Last Admin: 12/03/21 00:30 Dose: 40 mg Fluconazole (Fluconazole 100 Mg Tablet) 100 mg PO DAILY [facility] Dextrose (D5w) 1,000 mls @ 100 mls/hr IVCONT .Q10H [facility] Last Admin: 12/03/21 09:05 Dose: 100 mls/hr Lorazepam (Lorazepam 2 Mg/Ml Vial) 1 mg IVPUSH Q6H PRN PRN Reason: Anxiety Last Admin: 12/03/21 16:02 Dose: 1 mg Melatonin (Melatonin 3 Mg Tablet) 6 mg PO BEDTIME PRN PRN Reason: Insomnia Pharmacy Consult (Consult Rx Vancomycin Dosing) 1 each MISCELLANE DAILY PRN PRN Reason: Consult order Senna (Sennosides 8.6 Mg Tablet) 17.2 mg PO BEDTIME PRN PRN Reason: Constipation Sodium Chloride (0.9 % Sodium Chloride Flush 3 Ml Syringe) 3 ml IVFLUSH QSHIFT [facility] Last Admin: 12/03/21 08:10 Dose: 3 ml Valacyclovir HCl (Valacyclovir Hcl 1,000 Mg Tablet) 1,000 mg PO Q12H [facility] Last Admin: 12/03/21 15:55 Dose: 1,000 mg Home Medications Medication Instructions Recorded Confirmed Last Taken Type lisinopril 5 mg tablet 5 mg PO DAILY 06/20/20 12/03/21 12/02/21 History divalproex 500 mg tablet,delayed 1 tab PO BID 12/03/21 12/03/21 12/02/21 History release escitalopram oxalate 10 mg tablet 1 tab PO DAILY 12/03/21 12/03/21 12/02/21 Hi story lorazepam 0.5 mg tablet 1 tab PO TID 12/03/21 12/03/21 12/02/21 History melatonin 3 mg tablet 1 tab PO BEDTIME PRN insomnia 12/03/21 12/03/21 12/02/21 History Physical Exam Vital Signs: Vital Signs: Last Vital Signs Temp 96.1 F L 12/03/21 07:24 Pulse 52 12/03/21 15:50 Resp 18 12/03/21 15:50 BP 118/71 12/03/21 15:50 Pulse Ox 95 12/03/21 15:50 O2 Del Method 12/03/21 15:50 BMI result Body Mass Index 24.9 Const: General: comfortable and no acute distress Nutritional Appearance: well nourished Limitations: behavioral limitations Resp: Effort & Inspection: normal respiratory effort, no audible wheezes, no cough and no respiratory distress GI: Palpation (GI): Soft to palpation, nontender and no guarding : Other: Scrotal and perianal skin with evidence of skin excoriation with yellowish discharge and cracking. No fluctuance is appreciated and no skin necrosis is identified. Results Labs Result diagrams: 12/03/21 06:53 12/03/21 06:53 Labs: Abnormal lab results 12/02/21 12/02/21 12/02/21 Range/Units 19:05 19:06 20:56 RBC 3.98 L (4.60-5.80) X10*6/uL Hgb 12.6 L (14.0-18.0) g/dl Hct 39.6 L (42.0-52.0) % MCV 99.5 H (80.0-98.0) fL MPV 9.3 L (9.4-12.4) fL Eos % (Auto) (0-4) % Sodium 148 H (135-145) mmol/L Chloride 118 H (96-108) mmol/L Anion Gap (12-20) BUN 30 H (9-16) mg/dL Calcium (8.4-10.2) mg/dL Ur Specific Leigh >= 1.030 H (1.005-1.025) Urine Blood 3+ H (NEG) Urine RBC 10-14 H (0) /HPF Urine Fentanyl Screen (Not Detect) 12/02/21 12/03/21 12/03/21 Range/Units 20:56 06:53 06:53 RBC 3.79 L (4.60-5.80) X10*6/uL Hgb 11.8 L (14.0-18.0) g/dl Hct 38.1 L (42.0-52.0) % MCV 100.5 H (80.0-98.0) fL MPV 9.1 L (9.4-12.4) fL Eos % (Auto) 4.2 H (0-4) % Sodium 149 H (135-145) mmol/L Chloride 122 H (96-108) mmol/L Anion Gap 9 L (12-20) BUN 23 H (9-16) mg/dL Calcium 8.2 L (8.4-10.2) mg/dL Ur Specific Leigh (1.005-1.025) Urine Blood (NEG) Urine RBC (0) /HPF Urine Fentanyl Screen POSITIVE H (Not Detect) Short CBC 12/02/21 12/03/21 Range/Units 19:06 06:53 WBC 8.8 5.9 (4.8-10.8) X10*3/uL Hgb 12.6 L 11.8 L (14.0-18.0) g/dl Hct 39.6 L 38.1 L (42.0-52.0) % Plt Count 222 219 (160-400) X10*3/uL BMP 12/02/21 12/03/21 19:05 06:53 Sodium 148 H 149 H Potassium 3.9 3.9 Chloride 118 H 122 H Carbon Dioxide 22 22 BUN 30 H 23 H Creatinine 0.99 0.83 Calcium 8.6 D 8.2 L Urine 12/02/21 Range/Units 20:56 Urine Color YELLOW Urine Appearance CLEAR Urine pH 5.5 (5.0-8.0) Ur Specific Leigh >= 1.030 H (1.005-1.025) Urine Protein TRACE (NEG-TRACE) MG/DL Urine Glucose (UA) NEG (NEG) MG/DL All other labs normal. Assessment and Plan (1) Lesion of skin of scrotum: Status: Acute (2) Candidiasis: Status: Acute (3) Cellulitis: Status: Acute Plan 56-year-old male patient with evidence of skin excoriation involving the perianal and scrotal skin suggestive of a fungal skin infection. No evidence of underlying abscess or skin necrosis. No surgical intervention required at this time. Agree with topical Lotrimin. Will sign off, please call for any new concerns. Procedures Date of Service Date of Service: 12/03/21
[2021-12-04] MEDS: Enoxaparin Sodium 40 MG/0.4 ML SYRINGE SUBCUT ×2 (00:34→22:49)
[2021-12-04] MEDS: valACYclovir HCL 1,000 MG TABLET 1000 MG PO ×2 (00:46→13:45)
[2021-12-04] MEDS: Melatonin 3 MG TABLET 6 MG PO (01:36)
[2021-12-04] MEDS: LORazepam 2 MG/ML VIAL 1 MG IVPUSH ×2 (01:36→19:55)
[2021-12-04 05:33] LABS: MANUAL DIFF FLAG NO
[2021-12-04 05:37] LABS: Basophils Percent Auto 0.4 % (0-2); Eosinophils Absolute Auto 0.2 X10*3/uL (0.0-0.4); Eosinophils Percent Auto 3.4 % (0-4); Hematocrit 38.1 % (42.0-52.0); Hemoglobin 12.1 g/dl (14.0-18.0); Imm Gran Abs Auto 0.02 X10*3/uL (0.00-0.03); Imm Gran Pct Auto 0.3 % (0.0-0.4); Lymphocytes Absolute Auto 2.5 X10*3/uL (1.2-4.9); Mean Corpuscular HGB Conc 31.8 g/dl (31.0-36.0); Mean Corpuscular Hemoglobin 31.3 pg (27.0-33.0); Mean Corpuscular Volume 98.7 fL (80.0-98.0); Mean Platelet Volume 9.4 fL (9.4-12.4); Monocytes Absolute Auto 0.5 X10*3/uL (0.1-1.2); Monocytes Percent Auto 6.7 % (2-11); Neutrophils Absolute Auto 3.6 x10*3/uL (2.0-8.3); Neutrophils Percent Auto 53.2 % (45-73); Platelet Count 226 X10*3/uL (160-400); Red Blood Count 3.86 X10*6/uL (4.60-5.80); Red Cell Distribution Width 13.7 % (11.0-16.0); White Blood Count 6.8 X10*3/uL (4.8-10.8)
[2021-12-04 05:56] LABS: Alanine Aminotransferase 23 U/L (0-40); Alkaline Phosphatase 42 U/L (39-117); Anion Gap 10 (12-20); Aspartate Amino Transferase 34 U/L (5-37); Bilirubin Total 0.5 mg/dL (0.0-1.0); Blood Urea Nitrogen 18 mg/dL (9-16); Carbon Dioxide 24 mmol/L (22-29); Chloride 112 mmol/L (96-108); Creatinine Clr Calc Pharmacy 101.2; Estimated Glomerular Filt Rate > 60; Glucose Fasting 101 mg/dL (60-99); Potassium 3.5 mmol/L (3.3-5.1); Sodium 142 mmol/L (135-145); Total Protein 5.3 g/dL (6.5-8.0)
[2021-12-04] MEDS: Dextrose 5 % 1,000 ML 100 ML IVCONT ×2 (06:29→15:18)
--- NOTE | 2021-12-04 06:47 | PC.NURSE ---
little blood noted in urinary bag pt is on lovenox,
[2021-12-04 08:00] VITALS: BP 114/75; PULSE 50; RESP 17; TEMP 36; O2SAT 100
[2021-12-04] MEDS: Fluconazole 100 MG TABLET PO (09:26)
[2021-12-04] MEDS: bisacodyL 5 MG TABLET.DR 10 MG PO (09:26)
[2021-12-04 10:29] LABS: Vancomycin Trough < 3.0 mcg/mL (10.0-20.0)
[2021-12-04] MEDS: Clotrimazole 1 % Cream 15 GM TUBE 1 APPL TOPICAL ×2 (11:07→19:15)
[2021-12-04 11:51] VITALS: BP 113/68; PULSE 52; RESP 16; TEMP 36; O2SAT 100
--- NOTE | 2021-12-04 13:38 | HO.PM.IMPN ---
Subjective Subjective Date of Service: 12/04/21 Interval History: no acute issues overnight Review of Systems patient nonverbal Physical Exam Vital Signs: Vital Signs: Last Vital Signs Temp 96.8 F 12/04/21 11:51 Pulse 52 12/04/21 11:51 Resp 16 12/04/21 11:51 BP 113/68 12/04/21 11:51 Pulse Ox 100 12/04/21 11:51 O2 Del Method 12/04/21 11:51 BMI result Body Mass Index 24.9 Const: Other: awake nonverbal Resp: Other: clear to auscultation bilaterally no rales rhonchi or wheezes Cardio: Other: no S4; positive S1-S2; no S3 murmurs rubs or gallops GI: Other: soft nontender nondistended normoactive bowel sounds : Other: as per admission photos Extrem: Other: no edema Objective Data Active Medications Acetaminophen (Acetaminophen 325 Mg Tablet) 650 mg PO Q6H PRN PRN Reason: Pain, Mild (Pain Scale 1-3) Bisacodyl (Bisacodyl 10 Mg Supp.Rect) 10 mg MO DAILY PRN PRN Reason: Constipation Bisacodyl (Bisacodyl 5 Mg Tablet.Dr) 10 mg PO DAILY [facility] Last Admin: 12/04/21 09:26 Dose: 10 mg Documented By: GELY Clotrimazole (Clotrimazole 1 % Cream 15 Gm Tube) 1 appl TOPICAL BID [facility]; Protocol Stop: 12/09/21 23:59 Last Admin: 12/04/21 11:07 Dose: 1 appl Documented By: GELY Enoxaparin Sodium (Enoxaparin Sodium 40 Mg/0.4 Ml Syringe) 40 mg SUBCUT Q24H [facility] Last Admin: 12/04/21 00:34 Dose: 40 mg Documented By: VIKTOR Comments: new admit Fluconazole (Fluconazole 100 Mg Tablet) 100 mg PO DAILY [facility] Last Admin: 12/04/21 09:26 Dose: 100 mg Documented By: GELY Dextrose (D5w) 1,000 mls @ 100 mls/hr IVCONT .Q10H [facility] Last Admin: 12/04/21 06:29 Dose: 100 mls/hr Documented By: VIKTOR Lorazepam (Lorazepam 2 Mg/Ml Vial) 1 mg IVPUSH Q6H PRN PRN Reason: Anxiety Last Admin: 12/04/21 01:36 Dose: 1 mg Documented By: SPENCER Melatonin (Melatonin 3 Mg Tablet) 6 mg PO BEDTIME PRN PRN Reason: Insomnia Last Admin: 12/04/21 01:36 Dose: 6 mg Documented By: SPENCER Pharmacy Consult (Consult Rx Vancomycin Dosing) 1 each MISCELLANE DAILY PRN PRN Reason: Consult order Senna (Sennosides 8.6 Mg Tablet) 17.2 mg PO BEDTIME PRN PRN Reason: Constipation Sodium Chloride (0.9 % Sodium Chloride Flush 3 Ml Syringe) 3 ml IVFLUSH QSHIFT [facility] Last Admin: 12/04/21 08:32 Dose: Not Given Documented By: GELY Non-Admin Reason: IV Running Valacyclovir HCl (Valacyclovir Hcl 1,000 Mg Tablet) 1,000 mg PO Q12H [facility] Last Admin: 12/04/21 00:46 Dose: 1,000 mg Documented By: VIKTOR Labs CBC & Chem 7: 12/04/21 05:09 12/04/21 05:09 Labs: Laboratory Results - last 24 hr 12/04/21 12/04/21 12/04/21 05:09 05:09 09:48 MCV 98.7 H MCH 31.3 MCHC 31.8 RDW 13.7 Plt Count 226 MPV 9.4 Immature Gran % (Auto) 0.3 Neut % (Auto) 53.2 Lymph % (Auto) 36.0 [place] % (Auto) 6.7 Eos % (Auto) 3.4 Baso % (Auto) 0.4 Lymph # (Auto) 2.5 [place] # (Auto) 0.5 Eos # (Auto) 0.2 Baso # (Auto) 0.0 Abs Immat Gran (auto) 0.02 Absolute Neuts (auto) 3.6 Absolute Nucleated RBC 0.000 Nucleated RBC % (auto) 0.0 Anion Gap 10 L Estim Creat Clear Calc 101.2 Estimated GFR > 60 Fasting Glucose 101 H Calcium 8.0 L Total Bilirubin 0.5 AST 34 D ALT 23 Alkaline Phosphatase 42 Total Protein 5.3 L Albumin 3.0 L D Vancomycin Trough < 3.0 L Assessment and Plan (1) Lesion of skin of scrotum: Status: Acute (2) Hypernatremia: Status: Acute (3) Benign essential hypertension: Status: Acute (4) Frontotemporal dementia: Status: Acute Plan 56 year old male with a history of frontotemporal dementia/ Alzheimer disease presents with increased lethargy in urine output. Patient cared for at home with family in [employer] support. Noted to have diffuse skin rash over scrotum and perineum without acute CT scan findings. 1.Skin/scrotal lesions - as per ID will DC antibiotics - oral antiviral and antifungals 2.Hypernatremia - free water deficit calculated at 2.5 L - D5W at 100 an hour to correct free water deficit...improved -follow renals/divalents 3. Hypertension - acceptable control on current therapies - adjust as indicated 4.Dementia/Bipolar -acceptable control -continue outpatient therapies DNR DNI Quinnx requires ongoing hospitalization for correction of free water deficit with IV fluids Quality Stroke Does the patient have a stroke diagnosis?: No VTE Prior VTE?: No VTE Risk Level:: Medical - moderate - high VTE Device Contraindication: Treatment Not Indicated VTE Drug Contraindication: N/A - Med Ordered
--- NOTE | 2021-12-04 15:01 | MHC.CM.PN ---
CURRENT PLAN IS DC HOME ON Monday12/05/21 WITH FAMILY TRANSPORT. KELSI PLATT MADE AWARE OF PLAN VIA [employer]
[2021-12-04 15:27] VITALS: BP 119/64; PULSE 49; RESP 16; TEMP 36.1; O2SAT 99
[2021-12-04 19:48] VITALS: BP 116/67; PULSE 64; RESP 16; TEMP 36.3; O2SAT 99
[2021-12-04] MEDS: Acetaminophen 325 MG TABLET 650 MG PO (20:05)
[2021-12-04] MEDS: oxyCODONE HCl Immed Release 5 MG TABLET PO (22:01)
[2021-12-04 23:13] VITALS: BP 121/74; PULSE 91; RESP 17; TEMP 36.1; O2SAT 99
[2021-12-05] MEDS: valACYclovir HCL 1,000 MG TABLET 1000 MG PO (03:04)
[2021-12-05] MEDS: Dextrose 5 % 1,000 ML 100 ML IVCONT (03:06)
[2021-12-05 06:48] LABS: MANUAL DIFF FLAG NO
[2021-12-05 06:50] LABS: Basophils Percent Auto 0.4 % (0-2); Eosinophils Absolute Auto 0.2 X10*3/uL (0.0-0.4); Eosinophils Percent Auto 2.7 % (0-4); Hematocrit 39.4 % (42.0-52.0); Hemoglobin 12.7 g/dl (14.0-18.0); Imm Gran Abs Auto 0.01 X10*3/uL (0.00-0.03); Imm Gran Pct Auto 0.1 % (0.0-0.4); Lymphocytes Absolute Auto 2.3 X10*3/uL (1.2-4.9); Lymphocytes Percent Auto 34.1 % (20-40); Mean Corpuscular HGB Conc 32.2 g/dl (31.0-36.0); Mean Corpuscular Hemoglobin 31.4 pg (27.0-33.0); Mean Corpuscular Volume 97.5 fL (80.0-98.0); Mean Platelet Volume 9.6 fL (9.4-12.4); Monocytes Absolute Auto 0.6 X10*3/uL (0.1-1.2); Monocytes Percent Auto 9.3 % (2-11); Neutrophils Absolute Auto 3.6 x10*3/uL (2.0-8.3); Neutrophils Percent Auto 53.4 % (45-73); Platelet Count 226 X10*3/uL (160-400); Red Blood Count 4.04 X10*6/uL (4.60-5.80); Red Cell Distribution Width 13.4 % (11.0-16.0); White Blood Count 6.8 X10*3/uL (4.8-10.8)
[2021-12-05 07:30] LABS: Alanine Aminotransferase 24 U/L (0-40); Alkaline Phosphatase 45 U/L (39-117); Anion Gap 12 (12-20); Aspartate Amino Transferase 28 U/L (5-37); Bilirubin Total 0.4 mg/dL (0.0-1.0); Blood Urea Nitrogen 9 mg/dL (9-16); Calcium 8.1 mg/dL (8.4-10.2); Carbon Dioxide 20 mmol/L (22-29); Chloride 110 mmol/L (96-108); Creatinine Clr Calc Pharmacy 102.7; Estimated Glomerular Filt Rate > 60; Glucose Fasting 92 mg/dL (60-99); Potassium 3.8 mmol/L (3.3-5.1); Sodium 138 mmol/L (135-145); Total Protein 5.4 g/dL (6.5-8.0)
[2021-12-05 07:38] VITALS: BP 117/67; PULSE 47; RESP 18; TEMP 36.3; O2SAT 99
[2021-12-05] MEDS: bisacodyL 5 MG TABLET.DR 10 MG PO (09:18)
[2021-12-05] MEDS: Fluconazole 100 MG TABLET PO (09:18)
--- NOTE | 2021-12-05 10:35 | P.DS_ITS ---
DS: Providers Provider Date of Service: 12/05/21 Date of admission: 12/02/21 23:28 Date of discharge: 12/05/21 Primary care physician: Alexander Patel MD Consults: 12/02/21 23:28 Consult to Infectious Diseases Routine Consulting Provider: Pauline Herrera Reason for consultation: Perineal /scrotal/penile cellulitis; ?fungal 12/03/21 04:31 Consult to General Surgery Routine Consulting Provider: Kevin Murillo Reason for consultation: p/w perineL CELLULITIS; NOTED stercoral cellulitis DS: Diagnosis Discharge Diagnosis (1) Lesion of skin of scrotum: Status: Acute (2) Hypernatremia: Status: Acute (3) Benign essential hypertension: Status: Acute (4) Frontotemporal dementia: Status: Acute DS: Summary Hospital Course Hospital Course: 56-year-old male with past medical history of hypertension, hyperlipidemia, anxiety, depression, BPH, bipolar, Alzheimer's dementia, history of agitative episodes at home; presented to the hospital today with a chief complaint of lethargy.? Most of the history is obtained from the patient's family.? Reports that patient usually nonverbal at baseline; Patient the usually is aggressive; today he is noted to be more calm and lethargic, sleeping all day.? Mentions that patient based diapers every day, and had a recent change in diapers about 2 days ago; today when they tried to change the diaper the noted erythema on the penis and perianal area; denies any discharge. hospital course admitted to general medical floor and started on broad-spectrum antibiotics for presumed cellulitis. Seen by ID who felt this was a topical fungal infection along with viral herpetic infection. Antibiotics were stopped in favor of Valtrex and Diflucan. Patient over the next 48 hours return to baseline and was even aggressive toward staff. At this point in time he is medically acceptable for discharge home with his family to completed course of oral Valtrex and Diflucan Time Spent with Patient Time attestation: Total time spent providing and/or coordinating discharge services: Discharge coordination time: Greater than 30 minutes Quality: Safe Use of Opioids Does Pt have an Active Cancer Diagnosis on the Problem List?: No Quality: Stroke Does the patient have a stroke diagnosis?: No Physical Exam Vital Signs: Vital Signs: Last Vital Signs Temp 97.3 F 12/05/21 07:38 Pulse 47 L 12/05/21 07:38 Resp 18 12/05/21 07:38 BP 117/67 12/05/21 07:38 Pulse Ox 99 12/05/21 07:38 O2 Del Method 12/05/21 07:38 BMI result Body Mass Index 24.9 Const: Other: awake nonverbal Resp: Other: clear to auscultation bilaterally no rales rhonchi or wheezes Cardio: Other: no S4; positive S1-S2; no S3 murmurs rubs or gallops GI: Other: soft nontender nondistended normoactive bowel sounds : Other: as per admission photos Extrem: Other: no edema DS: Data Data Completed and Pending Labs on day of discharge: Laboratory Results - last 24 hr 12/05/21 12/05/21 06:38 06:38 WBC 6.8 RBC 4.04 L Hgb 12.7 L Hct 39.4 L MCV 97.5 MCH 31.4 MCHC 32.2 RDW 13.4 Plt Count 226 MPV 9.6 Immature Gran % (Auto) 0.1 Neut % (Auto) 53.4 Lymph % (Auto) 34.1 [place] % (Auto) 9.3 Eos % (Auto) 2.7 Baso % (Auto) 0.4 Lymph # (Auto) 2.3 [place] # (Auto) 0.6 Eos # (Auto) 0.2 Baso # (Auto) 0.0 Abs Immat Gran (auto) 0.01 Absolute Neuts (auto) 3.6 Absolute Nucleated RBC 0.000 Nucleated RBC % (auto) 0.0 Sodium 138 Potassium 3.8 Chloride 110 H Carbon Dioxide 20 L Anion Gap 12 BUN 9 Creatinine 0.69 Estim Creat Clear Calc 102.7 Estimated GFR > 60 Fasting Glucose 92 Calcium 8.1 L Total Bilirubin 0.4 AST 28 ALT 24 Alkaline Phosphatase 45 Total Protein 5.4 L Albumin 3.0 L Discharge Plan Discharge Patient Disposition: Home Health Service Discharge Diagnosis: altered mental status Referrals: Dawna Domingo [Outside] - 1 Week Alexander Patel MD [Primary Care Provider] - 1 Week Discharge Medications: New fluconazole 100 mg Tablet 100 mg PO DAILY Qty: 7 0RF valacyclovir 1 gram Tablet 1,000 mg PO Q12H Qty: 20 0RF clotrimazole 1 % Cream 1 appl topical BID Qty: 60 0RF Protocol: Apply to: Apply to: groin including scrotum Continued miscellaneous medical [place] [facility] [place] Rx Instructions miscellaneous .COMPLEX 30 Days Qty: 200 12RF Rx Instructions: Cleansing Cloths Flushable -- use 7 to 8 times a day as needed miscellaneo us; Cleansing Cloths Flushable miscellaneous medical supply Mis See Rx Instructions miscellaneous .COMPLEX 30 Days Qty: 200 12RF Rx Instructions: Adult briefs, size: Large -- use 7 to 8 times a day as needed miscellaneous; Adult briefs, size: Large (DME) underpads 30 X 30 pad See Rx Instructions .ROUTE .MEDSUPPLY Qty: 100 6RF Rx Instructions: As directed (DME) HOSPITAL BED See Rx Instructions .Route .MEDSUPPLY Qty: 1 0RF Rx Instructions: As directed cyanocobalamin (vitamin B-12) 1,000 mcg/mL kit 1,000 mcg IM Q4W 28 Days Qty: 1 5RF miscellaneous medical [place] [facility] [place] Rx Instructions miscellaneous .COMPLEX Qty: 2 12RF Rx Instructions: miscellaneous; barrier cream trazodone 100 mg tablet 100 mg PO BEDTIME 30 Days Qty: 30 2RF risperidone 2 mg tablet 2 mg PO BID 30 Days Qty: 60 1RF lisinopril 5 mg Tablet 5 mg PO DAILY hydroxyzine pamoate 50 mg Capsule 50 mg PO BID PRN (Reason: Anxiety) Qty: 60 0RF melatonin 3 mg tablet 1 tab PO BEDTIME PRN (Reason: insomnia) divalproex 500 mg tablet,delayed release (DR/EC) 1 tab PO BID lorazepam 0.5 mg tablet 1 tab PO TID escitalopram oxalate 10 mg tablet 1 tab PO DAILY (DME) TRANSPORT WHEELCHAIR See Rx Instructions .Route .MEDSUPPLY Qty: 1 0RF Rx Instructions: As directed pantoprazole 40 mg tablet,delayed release (DR/EC) 40 mg PO DAILY 90 Days Qty: 90 3RF Discharge Orders: Discharge Order (Routine); Ordered 12/05/21 Ordered By: Sandeep Stoll Diet: advance to usual diet Activity on Discharge: As tolerated Stand Alone Forms: Patient Portal Discharge page Care Plan Goals: complete course of Valtrex as well as Diflucan Health Concerns: follow-up with PCP you can arrange follow-up with wound clinic Plan of Treatment: resume all previous medications Assessment: see discharge summary
[2021-12-05 10:44] VITALS: BP 108/69; PULSE 58; RESP 18; TEMP 36.6; O2SAT 100
--- NOTE | 2021-12-05 12:17 | MHC.CM.PN ---
PT DISCHARGED HOME TODAY WITH RESUMPTION OF HIS DISCHARGE [employer] AND [facility] PROVIDED TRANSPORTATION
== END 2021-12-05 11:40 | disposition home health service (06) | DRG 607 ==
LOC: HO.ED 23:32 → HO.EDOVER 23:36 → HO.S3 12-03 21:44
PROVIDERS: Nurse Practitioner Family; Physician Assistant Medical; Admitting Provider Hospitalist; Emergency Provider Emergency Medicine; PCP Internal Medicine; Visit Provider Hospitalist
DX: B37.2 Candidiasis of skin and nail (principal); L03.315 Cellulitis of perineum; F02.81 Dementia in other diseases classified elsewhere, unspecified severity, with behavioral disturbance; E87.0 Hyperosmolality and hypernatremia; N40.0 Benign prostatic hyperplasia without lower urinary tract symptoms; Z66 Do not resuscitate; F31.9 Bipolar disorder, unspecified; K21.9 Gastro-esophageal reflux disease without esophagitis; L22 Diaper dermatitis; G30.9 Alzheimer's disease, unspecified; N48.22 Cellulitis of corpus cavernosum and penis; F41.9 Anxiety disorder, unspecified; Z88.1 Allergy status to other antibiotic agents; Z79.899 Other long term (current) drug therapy
CPT/HCPCS: 36415; 70450; 71045; 74176; 80048; 80053; 80202; 80307; 81001; 82077; 83735; 84484; 85025; 87255; 87502; 87635; 92610; 93005; 96361; 96365; 96375; 99285; J0133; J0696; J1650; J2060; J2270; J2543; J3370

== ENCOUNTER 2022-03-28 12:58 | Emergency (ER) | payer OTHER, SELFPAY ==
[2022-03-28] VITALS (7 sets, daily range): BP systolic 97–120; BP diastolic 59–79; PULSE 56–83; RESP 12–23; TEMP 36.6–37.3; O2SAT 94–100; BMI 23.4
--- NOTE | 2022-03-28 13:06 | ED_ITS ---
HPI - Fall General Stated Complaint: FTT,FALL T-1 Time Seen by Provider: 03/28/22 13:05 Source: family, EMS and old records reviewed Mode of arrival: EMS Limitations: altered mental status History of Present Illness HPI Narrative: 56 yo male with hx of HTN, HLD, anxiety, depression, BPH, bipolar, alzheimer's dementia advanced, here after FTT for past few weeks, not eating or drinking, falling - family brought patient in as VNA recommended hospice and family could not get it in fast enough. Family wants nothing done but comfort measures and wants to speak to hospice - discussion with daughter and . complaint: fall (FTT) Onset (ago): week(s) (few) Fall from: standing Fall witnessed: yes, by family Place fall occurred: home Loss of consciousness: none Prolonged down time: unclear Symptoms prior to fall: other (unsure) Context: history of frequent falls Location of injury: other (unclear) Associated symptoms (after fall): other (chronic FTT weakness not eating or drinking) Related Data Home Medications Medication Instructions Recorded Confirmed lisinopril 5 mg tablet 5 mg PO DAILY 06/20/20 12/03/21 escitalopram oxalate 10 mg tablet 1 tab PO DAILY 12/03/21 12/03/21 melatonin 3 mg tablet 1 tab PO BEDTIME PRN insomnia 12/03/21 12/03/21 Previous Rx's Medication Instructions Recorded hydroxyzine pamoate 50 mg capsule 50 mg PO BID PRN Anxiety #60 caps 07/14/20 underpads 30 X 30 #100 ea 11/30/20 HOSPITAL BED #1 ea 01/22/21 cyanocobalamin (vitamin B-12) 1,000 mcg IM Q4W 4 weeks #1 ea 04/19/21 1,000 mcg/mL injection kit miscellaneous medical supply See Rx Instructions miscellaneous 05/26/21 .COMPLEX use on rash on bottom due to incontinence #2 ea trazodone 100 mg tablet 100 mg PO BEDTIME 30 days #30 tabs 09/28/21 TRANSPORT WHEELCHAIR #1 ea 10/06/21 pantoprazole 40 mg tablet,delayed 40 mg PO DAILY 90 days #90 tabs 10/07/21 release fluconazole 100 mg tablet 100 mg PO DAILY #7 tabs 12/05/21 valacyclovir 1 gram tablet 1,000 mg PO Q12H #20 tabs 12/05/21 miscellaneous medical supply 1 ea miscellaneous .7-8 times 12/06/21 daily #500 ea miscellaneous medical supply See Rx Instructions miscellaneous 12/06/21 .COMPLEX 30 days #200 ea miscellaneous medical supply See Rx Instructions miscellaneous 12/06/21 .COMPLEX 30 days #200 ea clotrimazole 1 % topical cream 1 appl topical BID #60 grams 12/22/21 divalproex 500 mg tablet,delayed 500 mg PO BID 30 days #60 tabs 03/22/22 release lorazepam 0.5 mg tablet 0.5 mg PO TID PRN anxiety 30 days 03/22/22 #90 tabs risperidone 2 mg tablet 2 mg PO BID 30 days #60 tabs 03/22/22 Allergies Allergy/AdvReac Type Severity Reaction Status Date / Time ciprofloxacin [CIPROFLOXACIN] AdvReac Intermediate DIARRHEA Verified 12/22/21 14:13 Review of Systems Review of Systems: ROS unable to be obtained due to altered mental status [facility] Past Medical History Attestation statement: The following information was validated with the patient. Medical History Altered mental status Alzheimer disease Anxiety Asthma Benign essential hypertension Bipolar depression BPH (benign prostatic hyperplasia) Frontotemporal dementia GERD (gastroesophageal reflux disease) Insomnia Lesion of skin of scrotum Lumbar degenerative disc disease Pure hypercholesterolemia Smoker Surgical History History of discectomy History of removal of cyst History of surgery Family History Family History Father Alzheimers disease Chronic mental illness Mother Hypertension Meningitis Sister Heart disease Hypertension Maternal Grandmother Hypertension Diabetes Social History Social History Household Members: Family Housing: Apartment Do you presently have visiting nurse or other home services: No Unable to assess alcohol history related to: Unable to respond Alcohol intake: current Alcohol intake frequency: does not drink Patient Tobacco Use Status: Former Tobacco user e-Cigarette/Vaping Use: Never Used Second Hand Smoke Exposure: No Advance Directives Date on File: 07/15/20 service: No Current occupational status: disabled Sexual orientation: Straight/Heterosexual Cognitive needs: Yes Hearing needs: No Vision needs: No Physical Exam Vital Signs: Appearance: Weak and frail appearing, mild acute distress. Eyes: Pupils equal, round and reactive to light. ENT: Pharynx moderately dry MM atraumatic Neck: Normal inspection. Neck supple. CVS: Normal heart rate and rhythm. Pulses normal. petechia noted on chest wall R anterior in linear distribution Respiratory: No respiratory distress. Breath sounds normal. Abdomen: Soft and nontender. R iliac crest area superficial abrasion and ulceration noted : raised and enlarged wart appearing lesions on scrotum and rectal area Skin: Skin warm and dry. pale skin color. Poor skin turgor Extremities: No lower extremity edema. No calf ttp Neuro: only says yes, not participating in exam. Course Course Course Narrative: Patient placed in physician observation at 151pm. The indication for observation is that the patient needs more time for case management and hospice evaluation. At this time the patient is frail and cachectic, lungs clear, CV RRR, abd nontender. MDM - Fall MDM Narrative Medical decision making narrative: 56 yo male with hx of HTN, HLD, anxiety, depression, BPH, bipolar, alzheimer's dementia advanced, here after FTT for past few weeks at this time family wants to pursue pain control and hospice only. no labs, imaging. CM involved, PRN morphine and zofran ordered Discharge Plan Discharge Clinical Impression: Alzheimer's dementia, Adult failure to thrive Patient Disposition: Still a Patient Prescriptions: No Action (DME) underpads 30 X 30 pad See Rx Instructions .ROUTE .MEDSUPPLY Qty: 100 6RF Rx Instructions: As directed (DME) HOSPITAL BED See Rx Instructions .Route .MEDSUPPLY Qty: 1 0RF Rx Instructions: As directed cyanocobalamin (vitamin B-12) 1,000 mcg/mL kit 1,000 mcg IM Q4W 28 Days Qty: 1 5RF miscellaneous medical supply Misc See Rx Instructions miscellaneous .COMPLEX Qty: 2 12RF Rx Instructions: miscellaneous; barrier cream trazodone 100 mg tablet 100 mg PO BEDTIME 30 Days Qty: 30 2RF miscellaneous medical supply Misc See Rx Instructions miscellaneous .COMPLEX 30 Days Qty: 200 12RF Rx Instructions: Adult briefs, size: Large -- use 7 to 8 times a day as needed miscellaneous; Adult briefs, size: Large miscellaneous medical supply Misc See Rx Instructions miscellaneous .COMPLEX 30 Days Qty: 200 12RF Rx Instructions: Cleansing Cloths Flushable -- use 7 to 8 times a day as needed miscellaneous; Cleansing Cloths Flushable miscellaneous medical supply Mis 1 ea miscellaneous .7-8 times daily Qty: 500 0RF Rx Instructions: Simplicity Adult Diapers; Size: Medium divalproex 500 mg tablet,delayed release (DR/EC) 500 mg PO BID 30 Days Qty: 60 3RF risperidone 2 mg tablet 2 mg PO BID 30 Days Qty: 60 1RF lorazepam 0.5 mg tablet 0.5 mg PO TID PRN (Reason: anxiety) 30 Days Qty: 90 0RF lisinopril 5 mg Tablet 5 mg PO DAILY hydroxyzine pamoate 50 mg Capsule 50 mg PO BID PRN (Reason: Anxiety) Qty: 60 0RF melatonin 3 mg tablet 1 tab PO BEDTIME PRN (Reason: insomnia) escitalopram oxalate 10 mg tablet 1 tab PO DAILY fluconazole 100 mg Tablet 100 mg PO DAILY Qty: 7 0RF valacyclovir 1 gram Tablet 1,000 mg PO Q12H Qty: 20 0RF (DME) TRANSPORT WHEELCHAIR See Rx Instructions .Route .MEDSUPPLY Qty: 1 0RF Rx Instructions: As directed pantoprazole 40 mg tablet,delayed release (DR/EC) 40 mg PO DAILY 90 Days Qty: 90 3RF clotrimazole 1 % cream 1 appl topical BID Qty: 60 0RF Protocol: Apply to: Apply to: groin including scrotum
--- NOTE | 2022-03-28 13:34 | MHC.CM.ED ---
Addendum entered by Clarita Be 03/28/22 15:42: Received notification from Sergey at [facility] that they don't have the staff to meet with family today for a hospice informational meeting. Dr Baer made aware. Anticipate patient will stay in the ER overnight and have hospice informational meeting with family tomorrow 03/29. Original Note: Patient came to ER due to failure to thrive. Patient lives with his and has advanced dementia. Family discussing possibility of hospice. Referral made to [facility] for an informational hospice meeting with family today. Continue to monitor for d/c needs.
[2022-03-28] MEDS: Ondansetron ODT 4 MG TAB.RAPDIS TRANSLINGU (13:56)
[2022-03-28] MEDS: Morphine Sulfate Oral Sol 10 MG/5 ML SOLUTION 5 MG SUBLINGUAL ×3 (13:56→21:39)
--- NOTE | 2022-03-28 13:57 | PC.NURSE ---
patient awake/alert-nonverbal at baseline, vss, family at bedside, pt medicated per order, call cabrales within reach, will continue to monitor
--- NOTE | 2022-03-28 17:15 | PC.NURSE ---
Patient's family inquiring about pain medication. Pt is nonverbal but grimacing occasionally. Last received Morphine >4 hours ago. Spoke with regarding an additional dose of pain medications. agreed to order Dilaudid at this time. Pt to be on hospice care.
--- NOTE | 2022-03-28 17:45 | PC.NURSE ---
Pt did not have IV access. Order changed and given oral Morphine per PRN orders. Wasted Dilaudid in pyxis machine with Suzi Castle RN. Dilaudid NOT administered.
[2022-03-29 00:39] VITALS: BP 89/55; PULSE 68; RESP 15; TEMP 36.7; O2SAT 99
--- NOTE | 2022-03-29 00:42 | PC.NURSE ---
pt changed and repositioned into hospital bed. Barrier cream applied to bottom. Rn aware
[2022-03-29 02:15] VITALS: BP 89/57; PULSE 73; RESP 14; TEMP 36.6; O2SAT 100
[2022-03-29] MEDS: Morphine Sulfate Oral Sol 10 MG/5 ML SOLUTION 5 MG SUBLINGUAL ×2 (03:46→07:32)
[2022-03-29 03:50] VITALS: BP 114/70; PULSE 74
[2022-03-29 05:20] LABS: COVID-19 Test Negative (Negative); IDNOW Serial# 16C4AD1C
[2022-03-29 05:31] VITALS: BP 95/59; PULSE 59; RESP 15; TEMP 37.2; O2SAT 95
--- NOTE | 2022-03-29 06:30 | PC.NURSE ---
Patient slept comfortably for the majority of the overnight. Turn/reposition several times for comfort but patient will frequently turn himself onto his left side after staff readjust him. Moved to hospital bed for comfort. Patient has multiple open wounds in different stages of healing over his body. Buttock, right thigh, right lower abdomina, upper back, arms etc. skin lucio scaly and irritated all over. barrier cream applied to buttock. Medicated PRN for comfort see MAR
[2022-03-29 07:56] VITALS: BP 94/53; PULSE 58; RESP 12; TEMP 36.7; O2SAT 100
--- NOTE | 2022-03-29 09:06 | MHC.CM.ED ---
Addendum entered by Clarita Be 03/29/22 09:19: Patient's , Laney is at bedside. Hospice will meet with Laney at 10am. Original Note: Patient remains in ER. Per Cecily at [facility], social services aide is available today to complete hospice informational with family. Continue to monitor for d/c needs.
[2022-03-29 10:40] VITALS: BP 103/64; PULSE 62; RESP 12; TEMP 36.3; O2SAT 98
--- NOTE | 2022-03-29 14:21 | PC.NURSE ---
Pt repositioned. Full bed changed an seth cath replaced
--- NOTE | 2022-03-29 14:53 | MHC.CM.ED ---
Received notification from Cecily at [facility] that equipment will be delivered to patient's home at 5pm. Aminata JEAN booked for 6pm. Laney, aware. Zulema to monitor for d/c needs.
--- NOTE | 2022-03-29 17:35 | PC.NURSE ---
Ambulance here for patient transport back home with hospice. Family at home awaiting pt's arrival per case management. During this shift pt cleaned of urine and stool x2 and pt appeared calm and comfortable in the bed without any facial grimacing or moaning. At end of shift pt became slightly more active and got out of bed and about 5 min later ambulance did arrive.
== END 2022-03-29 17:50 | disposition home or self-care (01) ==
PROVIDERS: Emergency Provider Emergency Medicine; PCP Internal Medicine
DX: G30.9 Alzheimer's disease, unspecified (principal); F02.80 Dementia in other diseases classified elsewhere, unspecified severity, without behavioral disturbance, psychotic disturbance, mood disturbance, and anxiety; R62.7 Adult failure to thrive; R29.6 Repeated falls; R53.1 Weakness; I10 Essential (primary) hypertension; E78.00 Pure hypercholesterolemia, unspecified; F41.9 Anxiety disorder, unspecified; Z79.899 Other long term (current) drug therapy; Z20.822 Contact with and (suspected) exposure to COVID-19
CPT/HCPCS: 87635; 99284; J1170